=== PATIENT | female | born 1940 | race Hispanic/Latino ===

== ENCOUNTER 2023-03-19 03:53 | Inpatient (IN) | payer OTHER ==
--- OUTSIDE RECORDS SUMMARY | 2023-03-19 03:56 | XMS REPORT | Continuity of Care Document ---
:1940 Author Organization [facility] t Address [address] [facility] [address] [place] [address] Care Team Providers Name Role Phone Paco Villalpando Attending Clinician Unavailable [email or web address] Attending Clinician Unavailable Gilda Hathaway Attending Clinician Unavailable [email or web address] Admitting Clinician Unavailable Michelle Munguia APN Admitting Clinician Unavailable Payers Payer Name Policy Type Policy Number Effective Date Expiration Date S ource Problems Condition Condition Condition Status Onset Resolution Last Treating Co mments Source Name Details Category Date Date Treatment Clinician Date [id number] Primary Problem Comm on osteoarthr Spirit [facility] of [facility] left wrist [facility] [id number] Primary Problem Comm on osteoarthr [facility]is of [facility] right [facility] [id number] Urinary Problem Commo n incontinen Spirit ce, - [facility] unspecifie [facility] Constipati Constipati Problem C ommon on on Spirit - [facility] [id number] S/P Problem Common partial Spirit hysterecto - [facility] my [facility] [id number] Primary Problem Common insomnia [facility] [id number] Status Problem Common post colon Spirit resection - [facility] [id number] Acquired Problem Comm on hypothyroi [facility] dism [facility] [id number] Osteoporos Problem Com mon is, [facility] d pathologic al fracture presence [id number] Vitamin D Problem Comm on deficiency [facility] [id number] Glaucoma, Problem Comm on unspecifie [facility] [id number] SAILAJA Problem Common (generaliz Spirit ed anxiety - [facility] disorder) [facility] [id number] History of Problem Co mmon colon Spirit cancer - [facility] Routine Routine Problem Common eye exam eye exam [facility] [id number] Mixed Problem Common hyperlipid [facility] emia [facility] [id number] Essential Problem Comm on (primary) Spirit hypertensi - [facility] on [facility] Allergies, Adverse Reactions, Alerts Allergy Allergy Status Severity Reaction(s) Onset Inactive Treating Comm ents Source Name Type Date Date Clinician ciproflo DA Active U [facility] xacin 5-10 [facility] DA Active U [facility] 5-10 [facility] ciproflo DA Active U [facility] xacin 5-10 [facility] 00:[facility] ciproflo DA Active [facility] SWE[facility], 5-10 [facility] HCl ANXIETY 00:00: [facility] codeine DA Active U [facility] HEADACHE 5-10 [facility]al 00:[facility] ciproflo DA Active [facility] SWEATS, 5-10 [facility] ANXIETY 00:[facility] codeine codeine Active Unknown Common [facility] Social History Social Habit Start Date Stop Date Quantity Comments Source History of Tobacco Use Co mmon [facility] Sex Assigned At Com mon [facility] Smoking Status Start Date Stop Date Source Former Smoker 2022-12-24 00:00:00 2022-12-24 00:00:00 Common S pirit - [facility] Medications Ordered Filled Start Stop Current Ordering Indication Dosage Frequency Signature Comments Components Source Medication Medication Date Date Medication? Clinician (SIG) Name Name Benzonatate Benzonatate 2022-0 No 1{capsu TID Benzonatat 100 MG 100 MG 3-24 le} e 100 MG 00:00: 00 Benzonatate Benzonatate 3-0 No 1{capsu TID Benzonatat 100 MG 100 MG 3-24 le} e 100 MG 00:00: 00 Benzonatate Benzonatate 3-0 No 1{capsu TID Benzonatat 100 MG 100 MG 3-24 le} e 100 MG 00:00: 00 Benzonatate Benzonatate 3-0 No 1{capsu TID Benzonatat 100 MG 100 MG 3-24 le} e 100 MG 00:00: 00 Benzonatate Benzonatate 3-0 No 1{capsu TID Benzonatat 100 MG 100 MG 3-24 le} e 100 MG 00:00: 00 Ibandronate Ibandronate 2021-0 3- No Ibandronat Sodium 150 Sodium 150 01-23 e Sodium MG MG 00:00: 00:00 150 MG 00 :00 Azelastine Azelastine 2021-0 No 2{spray QD Azelastine HCl 0.15 % HCl 0.15 % 5-09 s_in_ea HCl 0.15 % 00:00: ch_nost 00 ril} Azelastine Azelastine 2-0 No 2{spray QD Azelastine HCl 0.15 % HCl 0.15 % 5-09 s_in_ea HCl 0.15 % 00:00: ch_nost 00 ril} Azelastine Azelastine 2-0 No 2{spray QD Azelastine HCl 0.15 % HCl 0.15 % 5-09 s_in_ea HCl 0.15 % 00:00: ch_nost 00 ril} Azelastine Azelastine 2-0 No 2{spray QD Azelastine HCl 0.15 % HCl 0.15 % 5-09 s_in_ea HCl 0.15 % 00:00: ch_nost 00 ril} Doxylamine Doxylamine No 1{table QD Doxylamine Succinate Succinate t_at_be Succinate (Sleep) 25 (Sleep) 25 dtime_a (Sleep) 25 MG MG s_neede MG d} busPIRone busPIRone No 1{table BID busPIRone HCl 10 MG HCl 10 MG t} HCl 10 MG Losartan Losartan No 1{table QD Losartan Potassium Potassium t} Potassium 50 MG 50 MG 50 MG Euthyrox 25 Euthyrox 25 No QD Euthyrox MCG MCG 25 MCG Timolol Timolol No 1{drop_ QD Timolol Maleate 0.5 Maleate 0.5 into_af Maleate % % fected_ 0.5 % eye} Brimonidine Brimonidine No 1{drop_ TID Brimonidin Tartrate Tartrate into_af e Tartrate 0.2 % 0.2 % fected_ 0.2 % eye} Doxylamine Doxylamine No 1{table QD Doxylamine Succinate Succinate t_at_be Succinate (Sleep) 25 (Sleep) 25 dtime_a (Sleep) 25 MG MG s_neede MG d} Metoprolol Metoprolol No 1{table QD Metoprolol Succinate Succinate t} Succinate ER 50 MG ER 50 MG ER 50 MG busPIRone busPIRone No 1{table BID busPIRone HCl 10 MG HCl 10 MG t} HCl 10 MG Losartan Losartan No 1{table QD Losartan Potassium Potassium t} Potassium 50 MG 50 MG 50 MG Euthyrox 25 Euthyrox 25 No QD Euthyrox MCG MCG 25 MCG Timolol Timolol No 1{drop_ QD Timolol Maleate 0.5 Maleate 0.5 into_af Maleate % % fected_ 0.5 % eye} Brimonidine Brimonidine No 1{drop_ TID Brimonidin Tartrate Tartrate into_af e Tartrate 0.2 % 0.2 % fected_ 0.2 % eye} Doxylamine Doxylamine No 1{table QD Doxylamine Succinate Succinate t_at_be Succinate (Sleep) 25 (Sleep) 25 dtime_a (Sleep) 25 MG MG s_neede MG d} Metoprolol Metoprolol No 1{table QD Metoprolol Succinate Succinate t} Succinate ER 50 MG ER 50 MG ER 50 MG busPIRone busPIRone No 1{table BID busPIRone HCl 10 MG HCl 10 MG t} HCl 10 MG Losartan Losartan No 1{table QD Losartan Potassium Potassium t} Potassium 50 MG 50 MG 50 MG Euthyrox 25 Euthyrox 25 No QD Euthyrox MCG MCG 25 MCG Timolol Timolol No 1{drop_ QD Timolol Maleate 0.5 Maleate 0.5 into_af Maleate % % fected_ 0.5 % eye} Brimonidine Brimonidine No 1{drop_ TID Brimonidin Tartrate Tartrate into_af e Tartrate 0.2 % 0.2 % fected_ 0.2 % eye} Doxylamine Doxylamine No 1{table QD Doxylamine Succinate Succinate t_at_be Succinate (Sleep) 25 (Sleep) 25 dtime_a (Sleep) 25 MG MG s_neede MG d} Metoprolol Metoprolol No 1{table QD Metoprolol Succinate Succinate t} Succinate ER 50 MG ER 50 MG ER 50 MG busPIRone busPIRone No 1{table BID busPIRone HCl 10 MG HCl 10 MG t} HCl 10 MG Losartan Losartan No 1{table QD Losartan Potassium Potassium t} Potassium 50 MG 50 MG 50 MG Euthyrox 25 Euthyrox 25 No QD Euthyrox MCG MCG 25 MCG Timolol Timolol No 1{drop_ QD Timolol Maleate 0.5 Maleate 0.5 into_af Maleate % % fected_ 0.5 % eye} Brimonidine Brimonidine No 1{drop_ TID Brimonidin Tartrate Tartrate into_af e Tartrate 0.2 % 0.2 % fected_ 0.2 % eye} Doxylamine Doxylamine No 1{table QD Doxylamine Succinate Succinate t_at_be Succinate (Sleep) 25 (Sleep) 25 dtime_a (Sleep) 25 MG MG s_neede MG d} Metoprolol Metoprolol No 1{table QD Metoprolol Succinate Succinate t} Succinate ER 50 MG ER 50 MG ER 50 MG L-Lysine L-Lysine No L-Lysine Euthyrox 50 Euthyrox 50 No QD Euthyrox MCG MCG 50 MCG Doxylamine Doxylamine No 1{table QD Doxylamine Succinate Succinate t_at_be Succinate (Sleep) 25 (Sleep) 25 dtime_a (Sleep) 25 MG MG s_neede MG d} Vitamin B12 Vitamin B12 No Vitamin B12 Metoprolol Metoprolol No Metoprolol Succinate Succinate Succinate ER 50 MG ER 50 MG ER 50 MG Losartan Losartan No Losartan Potassium Potassium Potassium 50 MG 50 MG 50 MG Brimonidine Brimonidine No 1{drop_ TID Brimonidin Tartrate Tartrate into_af e Tartrate 0.2 % 0.2 % fected_ 0.2 % eye} Losartan Losartan No 1{table QD Losartan Potassium Potassium t} Potassium 50 MG 50 MG 50 MG Timolol Timolol No 1{drop_ QD Timolol Maleate 0.5 Maleate 0.5 into_af Maleate % % fected_ 0.5 % eye} Metoprolol Metoprolol No 1{table QD Metoprolol Succinate Succinate t} Succinate ER 50 MG ER 50 MG ER 50 MG busPIRone busPIRone No 1{table BID busPIRone HCl 10 MG HCl 10 MG t} HCl 10 MG Levothyroxi Levothyroxi No Levothyrox ne Sodium ne Sodium ine Sodium 25 MCG 25 MCG 25 MCG Metoprolol Metoprolol No Metoprolol Succinate Succinate Succinate ER 50 MG ER 50 MG ER 50 MG Brimonidine Brimonidine No 1{drop_ TID Brimonidin Tartrate Tartrate into_af e Tartrate 0.2 % 0.2 % fected_ 0.2 % eye} Timolol Timolol No 1{drop_ QD Timolol Maleate 0.5 Maleate 0.5 into_af Maleate % % fected_ 0.5 % eye} busPIRone busPIRone No busPIRone HCl 10 MG HCl 10 MG HCl 10 MG Losartan Losartan No 1{table QD Losartan Potassium Potassium t} Potassium 50 MG 50 MG 50 MG Euthyrox 50 Euthyrox 50 No QD Euthyrox MCG MCG 50 MCG L-Lysine L-Lysine No L-Lysine Doxylamine Doxylamine No 1{table QD Doxylamine Succinate Succinate t_at_be Succinate (Sleep) 25 (Sleep) 25 dtime_a (Sleep) 25 MG MG s_neede MG d} Losartan Losartan No Losartan Potassium Potassium Potassium 50 MG 50 MG 50 MG Levothyroxi Levothyroxi No Levothyrox ne Sodium ne Sodium ine Sodium 25 MCG 25 MCG 25 MCG Vitamin B12 Vitamin B12 No Vitamin B12 Timolol Timolol No 1{drop_ QD Timolol Maleate 0.5 Maleate 0.5 into_af Maleate % % fected_ 0.5 % eye} Brimonidine Brimonidine No 1{drop_ TID Brimonidin Tartrate Tartrate into_af e Tartrate 0.2 % 0.2 % fected_ 0.2 % eye} Vitamin B12 Vitamin B12 No Vitamin B12 methylPREDN methylPREDN No methylPRED ISolone 4 ISolone 4 NISolone 4 MG MG MG Doxylamine Doxylamine No 1{table QD Doxylamine Succinate Succinate t_at_be Succinate (Sleep) 25 (Sleep) 25 dtime_a (Sleep) 25 MG MG s_neede MG d} Metoprolol Metoprolol No Metoprolol Succinate Succinate Succinate ER 50 MG ER 50 MG ER 50 MG Losartan Losartan No 1{table QD Losartan Potassium Potassium t} Potassium 50 MG 50 MG 50 MG Losartan Losartan No Losartan Potassium Potassium Potassium 50 MG 50 MG 50 MG Euthyrox 50 Euthyrox 50 No QD Euthyrox MCG MCG 50 MCG busPIRone busPIRone No busPIRone HCl 10 MG HCl 10 MG HCl 10 MG Levothyroxi Levothyroxi No Levothyrox ne Sodium ne Sodium ine Sodium 25 MCG 25 MCG 25 MCG L-Lysine L-Lysine No L-Lysine L-Lysine L-Lysine No L-Lysine Euthyrox 50 Euthyrox 50 No QD Euthyrox MCG MCG 50 MCG methylPREDN methylPREDN No methylPRED ISolone 4 ISolone 4 NISolone 4 MG MG MG Metoprolol Metoprolol No Metoprolol Succinate Succinate Succinate ER 50 MG ER 50 MG ER 50 MG busPIRone busPIRone No busPIRone HCl 10 MG HCl 10 MG HCl 10 MG Brimonidine Brimonidine No 1{drop_ TID Brimonidin Tartrate Tartrate into_af e Tartrate 0.2 % 0.2 % fected_ 0.2 % eye} Losartan Losartan No 1{table QD Losartan Potassium Potassium t} Potassium 50 MG 50 MG 50 MG Doxylamine Doxylamine No 1{table QD Doxylamine Succinate Succinate t_at_be Succinate (Sleep) 25 (Sleep) 25 dtime_a (Sleep) 25 MG MG s_neede MG d} Levothyroxi Levothyroxi No Levothyrox ne Sodium ne Sodium ine Sodium 25 MCG 25 MCG 25 MCG Vitamin B12 Vitamin B12 No Vitamin B12 Losartan Losartan No Losartan Potassium Potassium Potassium 50 MG 50 MG 50 MG Timolol Timolol No 1{drop_ QD Timolol Maleate 0.5 Maleate 0.5 into_af Maleate % % fected_ 0.5 % eye} Brimonidine Brimonidine No 1{drop_ TID Brimonidin Tartrate Tartrate into_af e Tartrate 0.2 % 0.2 % fected_ 0.2 % eye} Azelastine Azelastine No 2{spray QD Azelastine HCl 0.15 % HCl 0.15 % s_in_ea HCl 0.15 % ch_nost ril} Losartan Losartan No 1{table QD Losartan Potassium Potassium t} Potassium 50 MG 50 MG 50 MG methylPREDN methylPREDN No methylPRED ISolone 4 ISolone 4 NISolone 4 MG MG MG Metoprolol Metoprolol No 1{table QD Metoprolol Succinate Succinate t} Succinate ER 50 MG ER 50 MG ER 50 MG Levothyroxi Levothyroxi No Levothyrox ne Sodium ne Sodium ine Sodium 25 MCG 25 MCG 25 MCG Vitamin B12 Vitamin B12 No Vitamin B12 L-Lysine L-Lysine No L-Lysine Vitamin C Vitamin C No Vitamin C Timolol Timolol No 1{drop_ QD Timolol Maleate 0.5 Maleate 0.5 into_af Maleate % % fected_ 0.5 % eye} Losartan Losartan No Losartan Potassium Potassium Potassium 50 MG 50 MG 50 MG Euthyrox 50 Euthyrox 50 No QD Euthyrox MCG MCG 50 MCG busPIRone busPIRone No busPIRone HCl 10 MG HCl 10 MG HCl 10 MG busPIRone busPIRone No 1{table BID busPIRone HCl 10 MG HCl 10 MG t} HCl 10 MG Multivitami Multivitami No Multivitam n n in Metoprolol Metoprolol No Metoprolol Succinate Succinate Succinate ER 50 MG ER 50 MG ER 50 MG Doxylamine Doxylamine No 1{table QD Doxylamine Succinate Succinate t_at_be Succinate (Sleep) 25 (Sleep) 25 dtime_a (Sleep) 25 MG MG s_neede MG d} Losartan Losartan No 1{table QD Losartan Potassium Potassium t} Potassium 50 MG 50 MG 50 MG Euthyrox 25 Euthyrox 25 No QD Euthyrox MCG MCG 25 MCG Brimonidine Brimonidine No 1{drop_ TID Brimonidin Tartrate Tartrate into_af e Tartrate 0.2 % 0.2 % fected_ 0.2 % eye} Biotin Biotin No Biotin Azelastine Azelastine No 2{spray QD Azelastine HCl 0.15 % HCl 0.15 % s_in_ea HCl 0.15 % ch_nost ril} L-Lysine L-Lysine No L-Lysine Levothyroxi Levothyroxi No Levothyrox ne Sodium ne Sodium ine Sodium 25 MCG 25 MCG 25 MCG Vitamin C Vitamin C No Vitamin C busPIRone busPIRone No busPIRone HCl 10 MG HCl 10 MG HCl 10 MG Vitamin B12 Vitamin B12 No Vitamin B12 Melatonin Melatonin No Melatonin methylPREDN methylPREDN No methylPRED ISolone 4 ISolone 4 NISolone 4 MG MG MG Doxylamine Doxylamine No 1{table QD Doxylamine Succinate Succinate t_at_be Succinate (Sleep) 25 (Sleep) 25 dtime_a (Sleep) 25 MG MG s_neede MG d} Timolol Timolol No 1{drop_ QD Timolol Maleate 0.5 Maleate 0.5 into_af Maleate % % fected_ 0.5 % eye} Multivitami Multivitami No Multivitam n n in Metoprolol Metoprolol No Metoprolol Succinate Succinate Succinate ER 50 MG ER 50 MG ER 50 MG Losartan Losartan No Losartan Potassium Potassium Potassium 50 MG 50 MG 50 MG Metoprolol Metoprolol No 1{table QD Metoprolol Succinate Succinate t} Succinate ER 50 MG ER 50 MG ER 50 MG Doxylamine Doxylamine No 1{table QD Doxylamine Succinate Succinate t_at_be Succinate (Sleep) 25 (Sleep) 25 dtime_a (Sleep) 25 MG MG s_neede MG d} Euthyrox 25 Euthyrox 25 No QD Euthyrox MCG MCG 25 MCG Metoprolol Metoprolol No Metoprolol Succinate Succinate Succinate ER 50 MG ER 50 MG ER 50 MG Vitamin B12 Vitamin B12 No Vitamin B12 Losartan Losartan No Losartan Potassium Potassium Potassium 50 MG 50 MG 50 MG L-Lysine L-Lysine No L-Lysine Biotin Biotin No Biotin Melatonin Melatonin No Melatonin Vitamin C Vitamin C No Vitamin C Multivitami Multivitami No Multivitam n n in Azelastine Azelastine No 2{spray QD Azelastine HCl 0.15 % HCl 0.15 % s_in_ea HCl 0.15 % ch_nost ril} Timolol Timolol No 1{drop_ QD Timolol Maleate 0.5 Maleate 0.5 into_af Maleate % % fected_ 0.5 % eye} Losartan Losartan No Losartan Potassium Potassium Potassium 50 MG 50 MG 50 MG Brimonidine Brimonidine No 1{drop_ TID Brimonidin Tartrate Tartrate into_af e Tartrate 0.2 % 0.2 % fected_ 0.2 % eye} Levothyroxi Levothyroxi No Levothyrox ne Sodium ne Sodium ine Sodium 25 MCG 25 MCG 25 MCG methylPREDN methylPREDN No methylPRED ISolone 4 ISolone 4 NISolone 4 MG MG MG busPIRone busPIRone No busPIRone HCl 10 MG HCl 10 MG HCl 10 MG Metoprolol Metoprolol No 1{table QD Metoprolol Succinate Succinate t} Succinate ER 50 MG ER 50 MG ER 50 MG methylPREDN methylPREDN No methylPRED ISolone 4 ISolone 4 NISolone 4 MG MG MG Myrbetriq Myrbetriq No 1{table QD Myrbetriq 50 MG 50 MG t} 50 MG busPIRone busPIRone No busPIRone HCl 10 MG HCl 10 MG HCl 10 MG Doxylamine Doxylamine No 1{table QD Doxylamine Succinate Succinate t_at_be Succinate (Sleep) 25 (Sleep) 25 dtime_a (Sleep) 25 MG MG s_neede MG d} Colace Colace No Colace Losartan Losartan No Losartan Potassium Potassium Potassium 50 MG 50 MG 50 MG L-Lysine L-Lysine No L-Lysine Vitamin B12 Vitamin B12 No Vitamin B12 Biotin Biotin No Biotin Melatonin Melatonin No Melatonin Combigan Combigan No 1{drop_ BID Combigan 0.2-0.5 % 0.2-0.5 % into_af 0.2-0.5 % fected_ eye} Losartan Losartan No 1{table QD Losartan Potassium Potassium t} Potassium 50 MG 50 MG 50 MG Multivitami Multivitami No Multivitam n n in Euthyrox 25 Euthyrox 25 No QD Euthyrox MCG MCG 25 MCG Metamucil Metamucil No Metamucil Metoprolol Metoprolol No 1{table QD Metoprolol Succinate Succinate t} Succinate ER 50 MG ER 50 MG ER 50 MG Losartan Losartan No 1{table QD Losartan Potassium Potassium t} Potassium 50 MG 50 MG 50 MG Vitamin C Vitamin C No Vitamin C Levothyroxi Levothyroxi No Levothyrox ne Sodium ne Sodium ine Sodium 25 MCG 25 MCG 25 MCG Azelastine Azelastine No 2{spray QD Azelastine HCl 0.15 % HCl 0.15 % s_in_ea HCl 0.15 % ch_nost ril} Myrbetriq Myrbetriq No 1{table QD Myrbetriq 50 MG 50 MG t} 50 MG Brimonidine Brimonidine No 1{drop_ TID Brimonidin Tartrate Tartrate into_af e Tartrate 0.2 % 0.2 % fected_ 0.2 % eye} Timolol Timolol No 1{drop_ QD Timolol Maleate 0.5 Maleate 0.5 into_af Maleate % % fected_ 0.5 % eye} Multivitami Multivitami No Multivitam n n in Metamucil Metamucil No Metamucil Melatonin Melatonin No Melatonin Myrbetriq Myrbetriq No Myrbetriq 50 MG 50 MG 50 MG busPIRone busPIRone No busPIRone HCl 10 MG HCl 10 MG HCl 10 MG methylPREDN methylPREDN No methylPRED ISolone 4 ISolone 4 NISolone 4 MG MG MG Azelastine Azelastine No 2{spray QD Azelastine HCl 0.15 % HCl 0.15 % s_in_ea HCl 0.15 % ch_nost ril} Levothyroxi Levothyroxi No Levothyrox ne Sodium ne Sodium ine Sodium 25 MCG 25 MCG 25 MCG Brimonidine Brimonidine No 1{drop_ TID Brimonidin Tartrate Tartrate into_af e Tartrate 0.2 % 0.2 % fected_ 0.2 % eye} L-Lysine L-Lysine No L-Lysine Biotin Biotin No Biotin Colace Colace No Colace Combigan Combigan No 1{drop_ BID Combigan 0.2-0.5 % 0.2-0.5 % into_af 0.2-0.5 % fected_ eye} Losartan Losartan No Losartan Potassium Potassium Potassium 50 MG 50 MG 50 MG Doxylamine Doxylamine No 1{table QD Doxylamine Succinate Succinate t_at_be Succinate (Sleep) 25 (Sleep) 25 dtime_a (Sleep) 25 MG MG s_neede MG d} Euthyrox 25 Euthyrox 25 No QD Euthyrox MCG MCG 25 MCG Metoprolol Metoprolol No Metoprolol Succinate Succinate Succinate ER 50 MG ER 50 MG ER 50 MG Losartan Losartan No Losartan Potassium Potassium Potassium 50 MG 50 MG 50 MG Timolol Timolol No 1{drop_ QD Timolol Maleate 0.5 Maleate 0.5 into_af Maleate % % fected_ 0.5 % eye} Vitamin C Vitamin C No Vitamin C Vitamin B12 Vitamin B12 No Vitamin B12 Multivitami Multivitami No Multivitam n n in Metamucil Metamucil No Metamucil Melatonin Melatonin No Melatonin Myrbetriq Myrbetriq No Myrbetriq 50 MG 50 MG 50 MG busPIRone busPIRone No busPIRone HCl 10 MG HCl 10 MG HCl 10 MG methylPREDN methylPREDN No methylPRED ISolone 4 ISolone 4 NISolone 4 MG MG MG Azelastine Azelastine No 2{spray QD Azelastine HCl 0.15 % HCl 0.15 % s_in_ea HCl 0.15 % ch_nost ril} Levothyroxi Levothyroxi No Levothyrox ne Sodium ne Sodium ine Sodium 25 MCG 25 MCG 25 MCG Brimonidine Brimonidine No 1{drop_ TID Brimonidin Tartrate Tartrate into_af e Tartrate 0.2 % 0.2 % fected_ 0.2 % eye} L-Lysine L-Lysine No L-Lysine Biotin Biotin No Biotin Colace Colace No Colace Combigan Combigan No 1{drop_ BID Combigan 0.2-0.5 % 0.2-0.5 % into_af 0.2-0.5 % fected_ eye} Losartan Losartan No Losartan Potassium Potassium Potassium 50 MG 50 MG 50 MG Doxylamine Doxylamine No 1{table QD Doxylamine Succinate Succinate t_at_be Succinate (Sleep) 25 (Sleep) 25 dtime_a (Sleep) 25 MG MG s_neede MG d} Euthyrox 25 Euthyrox 25 No QD Euthyrox MCG MCG 25 MCG Metoprolol Metoprolol No Metoprolol Succinate Succinate Succinate ER 50 MG ER 50 MG ER 50 MG Losartan Losartan No Losartan Potassium Potassium Potassium 50 MG 50 MG 50 MG Timolol Timolol No 1{drop_ QD Timolol Maleate 0.5 Maleate 0.5 into_af Maleate % % fected_ 0.5 % eye} Vitamin C Vitamin C No Vitamin C Vitamin B12 Vitamin B12 No Vitamin B12 Multivitami Multivitami No Multivitam n n in Metamucil Metamucil No Metamucil Melatonin Melatonin No Melatonin Myrbetriq Myrbetriq No Myrbetriq 50 MG 50 MG 50 MG busPIRone busPIRone No busPIRone HCl 10 MG HCl 10 MG HCl 10 MG methylPREDN methylPREDN No methylPRED ISolone 4 ISolone 4 NISolone 4 MG MG MG Azelastine Azelastine No 2{spray QD Azelastine HCl 0.15 % HCl 0.15 % s_in_ea HCl 0.15 % ch_nost ril} Levothyroxi Levothyroxi No Levothyrox ne Sodium ne Sodium ine Sodium 25 MCG 25 MCG 25 MCG Brimonidine Brimonidine No 1{drop_ TID Brimonidin Tartrate Tartrate into_af e Tartrate 0.2 % 0.2 % fected_ 0.2 % eye} L-Lysine L-Lysine No L-Lysine Biotin Biotin No Biotin Colace Colace No Colace Combigan Combigan No 1{drop_ BID Combigan 0.2-0.5 % 0.2-0.5 % into_af 0.2-0.5 % fected_ eye} Losartan Losartan No Losartan Potassium Potassium Potassium 50 MG 50 MG 50 MG Doxylamine Doxylamine No 1{table QD Doxylamine Succinate Succinate t_at_be Succinate (Sleep) 25 (Sleep) 25 dtime_a (Sleep) 25 MG MG s_neede MG d} Euthyrox 25 Euthyrox 25 No QD Euthyrox MCG MCG 25 MCG Metoprolol Metoprolol No Metoprolol Succinate Succinate Succinate ER 50 MG ER 50 MG ER 50 MG Losartan Losartan No Losartan Potassium Potassium Potassium 50 MG 50 MG 50 MG Timolol Timolol No 1{drop_ QD Timolol Maleate 0.5 Maleate 0.5 into_af Maleate % % fected_ 0.5 % eye} Vitamin C Vitamin C No Vitamin C Vitamin B12 Vitamin B12 No Vitamin B12 Ipratropium Ipratropium No 2{spray TID Ipratropiu [place] s_in_ea m [place] 0.06 % 0.06 % ch_nost 0.06 % ril} Procto-Med Procto-Med No 1{appli BID Procto-Med HC 2.5 % HC 2.5 % cation} HC 2.5 % Tylenol Tylenol No Tylenol Arthritis Arthritis Arthritis Pain Pain Pain Multivitami Multivitami No Multivitam n n in Losartan Losartan No 1{table QD Losartan Potassium Potassium t} Potassium 50 MG 50 MG 50 MG Colace Colace No Colace Miralax Miralax No Miralax Refresh Refresh No Refresh Tears Tears Tears Timolol Timolol No 1{drop_ QD Timolol Maleate 0.5 Maleate 0.5 into_af Maleate % % fected_ 0.5 % eye} Calcium Calcium No Calcium Euthyrox 25 Euthyrox 25 No QD Euthyrox MCG MCG 25 MCG Brimonidine Brimonidine No 1{drop_ TID Brimonidin Tartrate Tartrate into_af e Tartrate 0.2 % 0.2 % fected_ 0.2 % eye} busPIRone busPIRone No 1{table BID busPIRone HCl 10 MG HCl 10 MG t} HCl 10 MG Metoprolol Metoprolol No 1{table QD Metoprolol Succinate Succinate t} Succinate ER 50 MG ER 50 MG ER 50 MG Sleep Aid Sleep Aid No Sleep Aid Doxylamine Doxylamine No 1{table QD Doxylamine Succinate Succinate t_at_be Succinate (Sleep) 25 (Sleep) 25 dtime_a (Sleep) 25 MG MG s_neede MG d} Ipratropium Ipratropium No 2{spray TID Ipratropiu [place] s_in_ea m [place] 0.06 % 0.06 % ch_nost 0.06 % ril} Procto-Med Procto-Med No 1{appli BID Procto-Med HC 2.5 % HC 2.5 % cation} HC 2.5 % Tylenol Tylenol No Tylenol Arthritis Arthritis Arthritis Pain Pain Pain Multivitami Multivitami No Multivitam n n in Losartan Losartan No 1{table QD Losartan Potassium Potassium t} Potassium 50 MG 50 MG 50 MG Colace Colace No Colace Miralax Miralax No Miralax Refresh Refresh No Refresh Tears Tears Tears Timolol Timolol No 1{drop_ QD Timolol Maleate 0.5 Maleate 0.5 into_af Maleate % % fected_ 0.5 % eye} Calcium Calcium No Calcium Euthyrox 25 Euthyrox 25 No QD Euthyrox MCG MCG 25 MCG Brimonidine Brimonidine No 1{drop_ TID Brimonidin Tartrate Tartrate into_af e Tartrate 0.2 % 0.2 % fected_ 0.2 % eye} busPIRone busPIRone No 1{table BID busPIRone HCl 10 MG HCl 10 MG t} HCl 10 MG Metoprolol Metoprolol No 1{table QD Metoprolol Succinate Succinate t} Succinate ER 50 MG ER 50 MG ER 50 MG Sleep Aid Sleep Aid No Sleep Aid Immunizations Ordered Filled Immunization Date Status Comments Sourc e Immunization Name Name FluAD FluAD 2019-03-23 Completed [facility] 15:05:00 - [facility] FluAD FluAD 2019-03-23 Completed [facility] 15:05:00 - [facility] FluAD FluAD 2019-03-23 Completed [facility] 15[facility]05:00 - [facility] FluAD FluAD 2019-03-23 [facility] 15:05:00 - [facility] FluAD FluAD 2019-03-23 Completed [facility]:05:00 - [facility] FluAD FluAD 2019-03-23 [facility]pleted [facility] 15:05:00 - [facility] FluAD FluAD 2019-03-23 [facility]pleted [facility] 15:05:00 - [facility] FluAD FluAD 2019-03-23 Completed [facility] 15:05:00 - [facility] FluAD FluAD 2019-03-23 Completed [facility] 15:05:00 - [facility] FluAD FluAD 2019-03-23 Completed [facility] 15:05:00 - [facility] FluAD FluAD 2019-03-23 Completed [facility] 15:05:00 - [facility] FluAD FluAD 2019-03-23 Completed [facility] 15:05:00 - [facility] FluAD FluAD 2019-03-23 Completed [facility] 15:05:00 - [facility] FluAD FluAD 2019-03-23 Completed [facility] 15:05:00 - [facility] Pneumovax (PPSV23) Pneumovax (PPSV23) 2010-09-30 Completed [facility] 15:07:00 - [facility] Pneumovax (PPSV23) Pneumovax (PPSV23) 2010-09-30 Completed [facility] 15:07:00 - [facility] Pneumovax (PPSV23) Pneumovax (PPSV23) 2010-09-30 Completed [facility] 15:07:00 - [facility] Pneumovax (PPSV23) Pneumovax (PPSV23) 2010-09-30 Completed [facility] 15:07:00 - [facility] Pneumovax (PPSV23) Pneumovax (PPSV23) 2010-09-30 Completed [facility] 15:07:00 - [facility] Pneumovax (PPSV23) Pneumovax (PPSV23) 2010-09-30 Completed [facility] 15:07:00 - [facility] Pneumovax (PPSV23) Pneumovax (PPSV23) 2010-09-30 Completed [facility] 15:07:00 - [facility] Pneumovax (PPSV23) Pneumovax (PPSV23) 2010-09-30 Completed [facility] 15:07:00 - [facility] Pneumovax (PPSV23) Pneumovax (PPSV23) 2010-09-30 Completed [facility] 15:07:00 - [facility] Pneumovax (PPSV23) Pneumovax (PPSV23) 2010-09-30 Completed [facility] 15:07:00 - [facility] Pneumovax (PPSV23) Pneumovax (PPSV23) 2010-09-30 Completed [facility] 15:07:00 - [facility] Pneumovax (PPSV23) Pneumovax (PPSV23) 2010-09-30 Completed [facility] 15:07:00 - [facility] Pneumovax (PPSV23) Pneumovax (PPSV23) 2010-09-30 Completed [facility] 15:07:00 [facility] Pneumovax (PPSV23) Pneumovax (PPSV23) 2010-09-30 Completed [facility] 15:07:00 [facility] FluAD FluAD Unknown Completed [facility] Pneumovax (PPSV23) Pneumovax (PPSV23) Unknown Completed [facility] FluAD FluAD Unknown Completed [facility] Pneumovax (PPSV23) Pneumovax (PPSV23) Unknown Completed [facility] FluAD FluAD Unknown Completed [facility] Pneumovax (PPSV23) Pneumovax (PPSV23) Unknown Completed [facility] Vital Signs Vital Name Observation Time Observation Value Comments Source height 2022-07-31 15:30:00 64 [in_i] [facility] weight 2022-07-31 15:30:00 128.2 [lb_av] [facility] temperature 2022-07-31 15:30:00 96.6 [degF] [facility] bmi 2022-07-31 15:30:00 22 kg/m2 [facility] oximetry 2022-07-31 15:30:00 99 % [facility] respiratory rate 2022-07-31 15:30:00 18 /min Comm on [facility] blood pressure 2022-07-31 15:30:00 130 mm[Hg] [facility] systolic [facility] blood pressure 2022-07-31 15:30:00 74 mm[Hg] [facility] diastolic [facility] height 2022-07-31 15:30:00 64 [in_i] [facility] weight 2022-07-31 15:30:00 128.2 [lb_av] [facility] temperature 2022-07-31 15:30:00 96.6 [degF] [facility] bmi 2022-07-31 15:30:00 22 kg/m2 [facility] oximetry 2022-07-31 15:30:00 99 % [facility] respiratory rate 2022-07-31 15:30:00 18 /min Comm on [facility] blood pressure 2022-07-31 15:30:00 130 mm[Hg] Common [facility] - systolic [facility] blood pressure 2022-07-31 15:30:00 74 mm[Hg] [facility] - diastolic [facility] height 2022-04-24 13:10:00 64 [in_i] [facility] weight 2022-04-24 13:10:00 126.1 [lb_av] [facility] temperature 2022-04-24 13:10:00 97.0 [degF] [facility] 2022-04-24 13:10:00 21.64 kg/m2 [facility] oximetry 2022-04-24 13:10:00 98 % [facility] respiratory rate 2022-04-24 13:10:00 18 /min Comm on [facility] blood pressure 2022-04-24 13:10:00 123 mm[Hg] Common [facility] - systolic [facility] blood pressure 2022-04-24 13:10:00 67 mm[Hg] Common [facility] - diastolic [facility] height 2022-01-23 13:20:00 64 [in_i] [facility] weight 2022-01-23 13:20:00 125.0 [lb_av] [facility] temperature 2022-01-23 13:20:00 97.2 [degF] [facility] bmi 2022-01-23 13:20:00 21.45 kg/m2 [facility] oximetry 2022-01-23 13:20:00 98 % [facility] respiratory rate 2022-01-23 13:20:00 18 /min [facility] blood pressure 2022-01-23 13:20:00 137 mm[Hg] [facility] - systolic [facility] blood pressure 2022-01-23 13:20:00 63 mm[Hg] [facility] - diastolic [facility] height 2022-01-02 13:15:00 64 [in_i] [facility] weight 2022-01-02 13:15:00 126 [lb_av] [facility] bmi 2022-01-02 13:15:00 21.63 kg/m2 [facility] blood pressure 2022-01-02 13:15:00 119 mm[Hg] [facility] - systolic [facility] blood pressure 2022-01-02 13:15:00 71 mm[Hg] [facility] - diastolic [facility] height 2021-12-19 15:00:00 64 [in_i] [facility] weight 2021-12-19 15:00:00 126 [lb_av] [facility] temperature 2021-12-19 15:00:00 97.5 [degF] [facility] bmi 2021-12-19 15:00:00 21.63 kg/m2 [facility] blood pressure 2021-12-19 15:00:00 120 mm[Hg] [facility] - systolic [facility] blood pressure 2021-12-19 15:00:00 78 mm[Hg] [facility] - diastolic [facility] height 2021-09-25 13:30:00 64 [in_i] [facility] weight 2021-09-25 13:30:00 127.3 [lb_av] [facility] - [facility] temperature 2021-09-25 13:30:00 98.2 [degF] [facility] bmi 2021-09-25 13:30:00 21.85 kg/m2 [facility] oximetry 2021-09-25 13:30:00 97 % [facility] respiratory rate 2021-09-25 13:30:00 18 /min Comm on [facility] blood pressure 2021-09-25 13:30:00 138 mm[Hg] [facility] - systolic [facility] blood pressure 2021-09-25 13:30:00 72 mm[Hg] [facility] - diastolic [facility] height 2021-06-27 15:40:00 64 [in_i] [facility] weight 2021-06-27 15:40:00 128.6 [lb_av] [facility] temperature 2021-06-27 15:40:00 98.0 [degF] [facility] bmi 2021-06-27 15:40:00 22.07 kg/m2 [facility] oximetry 2021-06-27 15:40:00 99 % [facility] respiratory rate 2021-06-27 15:40:00 18 /min Comm on [facility] blood pressure 2021-06-27 15:40:00 133 mm[Hg] [facility] - systolic [facility] blood pressure 2021-06-27 15:40:00 75 mm[Hg] [facility] - diastolic [facility] height 2021-06-27 15:20:00 64 [in_i] [facility] weight 2021-06-27 15:20:00 128.6 [lb_av] [facility] temperature 2021-06-27 15:20:00 98.0 [degF] [facility] 2021-06-27 15:20:00 22.07 kg/m2 [facility] oximetry 2021-06-27 15:20:00 99 % [facility] respiratory rate 2021-06-27 15:20:00 18 /min Comm on [facility] blood pressure 2021-06-27 15:20:00 133 mm[Hg] [facility] - systolic [facility] blood pressure 2021-06-27 15:20:00 75 mm[Hg] [facility] - diastolic [facility] height 2021-05-29 15:30:00 64 [in_i] [facility] weight 2021-05-29 15:30:00 130.1 [lb_av] [facility] temperature 2021-05-29 15:30:00 97.6 [degF] [facility] bmi 2021-05-29 15:30:00 22.33 kg/m2 [facility] oximetry 2021-05-29 15:30:00 99 % [facility] respiratory rate 2021-05-29 15:30:00 18 /min Comm on [facility] blood pressure 2021-05-29 15:30:00 138 mm[Hg] [facility] systolic [facility] blood pressure 2021-05-29 15:30:00 72 mm[Hg] [facility] diastolic [facility] Procedures This patient has no known procedures. Encounters Start End Encounter Admission Attending Care Care Encounter Source Date/Time Date/Time Type Type Clinicians Facility Department ID 2022-12-24 Outpatient Villalpando, [facility] [id number] [facility] 13:27:[id number] [facility] 2022-04-20 [facility] [id number] [facility] 11:15:[address] [facility] 2021-12-20 Out[facility]ando, [facility] [id number] [facility] 11:27:[address] [facility] 2021-12-19 [facility] [id number] 16:[facility]:[address] [facility] 2021-12-18 Outpatient Villalpando, [facility] [id number] [facility] 16:10:[address] [facility] 2021-06-28 Outpatient Villalpando, STLMLC [facility] [id number] Common 08:45:[address] [facility] 2021-06-23 Outpatient Villalpando, STLMLC STL[facility] [id number] Common 11:57:[address] [facility] 2021-06-14 Outpatient Villalpando, STLMLC STL[facility]C [id number] [facility] 14:33:[address] [facility] 2023-03-17 2023-03-17 Outpatient GC_[id number] PRIV PRIV [id number] [facility] 00:00:00 00:00:00 ivanna_S [id number] Medic al 2022-07-31 2022-07-31 OFFICE STLMLC STL[facility]C [id number] [facility] 00:00:00 00:00:00 [facility] ESTAB PT - CHI LEVEL 4 [facility] 2022-07-31 2022-07-31 SUB ANNUAL STLMLC STLMLC [id number] [facility] 00:00:00 00:00:00 [facility]CR [facility] WELLNESS - CHI VISIT [facility] 2022-07-16 2022-07-16 (TEL) STLMLC STLMLC [id number] [facility] 00:00:00 00:00:00 [facility] CHI [facility] 2022-04-24 2022-04-24 OFFICE STLMLC STLMLC [id number] [facility] 00:00:00 00:00:00 [facility] ESTAB PT - CHI LEVEL 4 [facility] 2022-01-23 2022-01-23 OFFICE STLMLC STLMLC [id number] [facility] 00:00:00 00:00:00 [facility] ESTAB PT - CHI LEVEL 4 [facility] 2022-01-02 2022-01-02 OFFICE STLMLC STLMLC [id number] [facility] 00:00:00 00:00:00 [facility] PT - CHI LEVEL 4 [facility] 2021-12-20 2021-12-20 (TEL) STLMLC STLMLC [id number] [facility] 00:00:00 00:00:00 [facility] 2021-12-19 2021-12-19 OFFICE STLMLC STLMLC [id number] Co m[facility] 00:00:00 00:00:00 VISIT NEW [facility] it PT LEVEL 3 - CHI [facility] 2021-12-18 2021-12-18 (TEL) STLMLC STLMLC [id number] [facility] 00:00:00 00:00:00 [facility] CHI [facility] 2021-09-25 2021-09-25 OFFICE STLMLC STLMLC [id number] [facility] 00:00:00 00:00:00 [facility] ESTAB PT - CHI LEVEL 4 [facility] 2021-08-25 2021-08-25 (TEL) STLMLC STLMLC [id number] [facility] 00:00:00 00:00:00 [facility] 2021-06-28 2021-06-28 (TEL) STLMLC STLMLC [id number] [facility] 00:00:00 00:00:00 [facility] 2021-06-28 2021-06-28 (TEL) STLMLC STLMLC [id number] [facility] 00:00:00 00:00:00 [facility] 2021-06-27 2021-06-27 SUB ANNUAL STLMLC STLMLC [id number] [facility] 00:00:00 00:00:00 MCR [facility] WELLNESS - CHI VISIT [facility] 2021-06-27 2021-06-27 OFFICE STLMLC STLMLC [id number] [facility] 00:00:00 00:00:00 [facility] EST[facility] PT - CHI LEVEL 4 [facility] 2021-06-21 2021-06-21 (TEL) STLMLC STLMLC [id number] [facility] 00:00:00 00:00:00 [facility] 2021-05-29 2021-05-29 OFFICE STLMLC STLMLC [id number] [facility] 00:00:00 00:00:00 VISIT NEW [facility] it PT LEVEL 4 - [facility] 2019-07-31 2019-07-31 Outpatient Rivas [facility] MRI [id number] [facility] [place] 13:00:00 13:00:00 , Gilda [id number] [facility] 2019-07-30 2019-07-30 Outpatient [facility] RAD HA5 [id number] [facility] [place] 13:00:00 13:00:00 , Gilda [id number] [facility] Results Test Description Test Time Test Comments Results Result Comments Source CBC W/AUTO DIFF 2022-12-17 00:00:00 Test Item Value Reference Range Interpretation Comme nts NUCLEATED RBCS (test code 0.0 /100 WBC'S See_Comment [Automated message] The = 68988-1) system which ge nerated this result transmit donal reference range: 0.0 /100 WBC'S. The reference range was not used to interpret th is result as normal/abnormal . ABSOLUTE EOSINOPHILS (test 0.14 K/UL See_Comment [Automated message] The code = 43746-0) system which generated this result transmit donal reference range: 0.00-0.5 0 K/UL. The reference range was not used to interpret th is result as normal/abnormal . ABSOLUTE LYMPHOCYTES (test 1.71 K/UL See_Comment [Automated message] The code = 64755-8) system which generated this result transmit donal reference range: 1.00-4.0 0 K/UL. The reference range was not used to interpret th is result as normal/abnormal . ABSOLUTE MONOCYTES (test 0.49 K/UL See_Comment [A utomated message] The code = 07613-8) system which generated this result transmit donal reference range: 0.20-1.0 0 K/UL. The reference range was not used to interpret th is result as normal/abnormal . ABSOLUTE NEUTROPHILS (test 3.11 K/UL See_Comment [Automated message] The code = 19209-1) system which generated this result transmit donal reference range: 1.50-7.5 0 K/UL. The reference range was not used to interpret th is result as normal/abnormal . BASOPHILS (test code = 0.5 % 75322-5) EOSINOPHILS (test code = 2.5 % 09483-0) HEMATOCRIT (test code = 40.0 % See_Comment [Au tomated message] The 78999-5) system which ge nerated this result transmit donal reference range: 34.0-45. 0 %. The reference range was not used to interpret th is result as normal/abnormal . HEMOGLOBIN (test code = 13.6 G/DL See_Comment [Au tomated message] The 718-7) system which ge nerated this result transmit donal reference range: 11.5-15. 5 G/DL. The reference range was not used to interpret th is result as normal/abnormal . LYMPHOCYTES (test code = 31.1 % 81271-6) MCH (test code = 53689-0) 31.3 PG See_Comment [ Automated message] The system which ge nerated this result transmit donal reference range: 25.0-33. 0 PG. The reference range was not used to interpret th is result as normal/abnormal . MCHC (test code = 46918-0) 34.0 G/DL See_Comment [Automated message] The system which ge nerated this result transmit donal reference range: 31.0-36. 0 G/DL. The reference range was not used to interpret th is result as normal/abnormal . MCV (test code = 01060-7) 92.2 fL See_Comment [ Automated message] The system which ge nerated this result transmit donal reference range: 80.0-99. 0 fL. The reference range was not used to interpret th is result as normal/abnormal . MONOCYTES (test code = 8.9 % 93730-8) NEUTROPHILS (test code = 56.6 % 69080-6) PLATELET COUNT (test code 353 K/UL See_Comment [ Automated message] The = 71093-0) system which ge nerated this result transmit donal reference range: 130-400 K/UL. The reference range was not used to interpret th is result as normal/abnormal . RBC (test code = 64559-9) 4.34 M/UL See_Comment [ Automated message] The system which Wyst nerated this result transmit donal reference range: 3.80-5.4 0 M/UL. The reference range was not used to interpret th is result as normal/abnormal . RDW (test code = 14491-1) 13.0 % See_Comment [ Automated message] The system which Wyst nerated this result transmit donal reference range: 11.5-15. 0 %. The reference range was not used to interpret th is result as normal/abnormal . WBC (test code = 48230-0) 5.5 K/UL See_Comment [ Automated message] The system which ge nerated this result transmit donal reference range: 3.5-11.0 K/UL. The reference range was not used to interpret th is result as normal/abnormal . TSH REFLEX TO FREE [id number] 00:00:00 Test Item Value Reference Range Interpretation Comments TSH REFLEX TO FREE 3.110 UIU/ML See_Comment [Automat ed message] T4 (test code = The system [facility] 20232-6) generated this result transmitted ref erence range: 0.400-4. 100 UIU/ML. The ref erence range was not u sed to interpret this result as normal/abnor mal. VITAMIN D, 25 [id number] 00:00:00 Test Item Value Reference Range Interpretation Comments VITAMIN D, 25 OH (test code = 29 NG/ML SEE BELOW NG/ML L 1988-07) LIPID PANEL WITH REFLEX DIRECT [id number] 00:00:00 Test Item Value Reference Range Interpretation Comments CALC LDL CHOL (test 116 MG/DL See_Comment H [Automa donal message] code = 75571-5) The system [facility] generated this result transmit donal reference range : <100 MG/DL. The reference range was not used to interpret this result as normal/abnormal . CHOLESTEROL (test code 224 MG/DL See_Comment H [Aut omated message] = 2092-3) The system [facility] generated this result transmit donal reference range : <200 MG/DL. The reference range was not used to interpret this result as normal/abnormal . HDL CHOLESTEROL (test 90 MG/DL See_Comment [Auto mated message] code = 2085-9) The system [facility] generated this result transmit donal reference range : >39 MG/DL. The refe rence range was not u sed to interpret th is result as normal/abnormal . RISK RATIO LDL/HDL 1.29 RATIO See_Comment [Automat ed message] (test code = 06194-1) The sy stem which generated this result transmit donal reference range : <3.22 RATIO. Th e reference range was not used to interpret this result as normal/abnormal . TRIGLYCERIDES (test 84 MG/DL See_Comment [Automa donal message] code = 2571-8) The system [employer] generated this result transmit donal reference range : <150 MG/DL. The reference range was not used to interpret this result as normal/abnormal . COMPREHENSIVE METABOLIC [id number] 00:00:00 Test Item Value Reference Range Interpretation Comments ALBUMIN (test code = 4.4 G/DL See_Comment [Autom ated message] 6884-7) The system [employer] generated this result transmit donal reference range : 3.5-5.2 G/DL. T he reference range was not used to interpret this result as normal/abnormal . ALKALINE PHOSPHATASE 89 U/L See_Comment [Autom ated message] (test code = 6768-6) The sys tem which generated this result transmit donal reference range : 40-142 U/L. The reference range was not used to interpret this result as normal/abnormal . BILIRUBIN, TOTAL 0.4 MG/DL See_Comment [Automated message] (test code = 1975-2) The sys tem which generated this result transmit donal reference range : <=1.2 MG/DL. Th e reference range was not used to interpret this result as normal/abnormal . BUN (test code = 13 MG/DL See_Comment [Automated message] 3094-0) The system [employer] generated this result transmit donal reference range : 8-23 MG/DL. The reference range was not used to interpret this result as normal/abnormal . CALCIUM (test code = 9.6 MG/DL See_Comment [Autom ated message] 22610-7) The system [employer] generated this result transmit donal reference range : 8.5-10.5 MG/DL. The reference range was not used to interpret this result as normal/abnormal . CALC A/G RATIO (test 1.8 RATIO See_Comment [Autom ated message] code = 1759-0) The system [facility] generated this result transmit donal reference range : 1.0-2.6 RATIO. The reference range was not used to interpret this result as normal/abnormal . CALC BUN/CREAT (test 16 RATIO See_Comment [Autom ated message] code = 3097-3) The system [employer] generated this result transmit donal reference range : 6-28 RATIO. The reference range was not used to interpret this result as normal/abnormal . CALC GLOBULIN (test 2.5 G/DL See_Comment [Automa donal message] code = 25169-5) The system [facility] generated this result transmit donal reference range : 1.9-3.7 G/DL. T he reference range was not used to interpret this result as normal/abnormal . CARBON DIOXIDE (test 28 MEQ/L See_Comment [Autom ated message] code = 1963-8) The system [facility] generated this result transmit donal reference range : 19-31 MEQ/L. Th e reference range was not used to interpret this result as normal/abnormal . CHLORIDE (test code 104 MEQ/L See_Comment [Automa donal message] = 2075-0) The system [facility] generated this result transmit donal reference range : 95-107 MEQ/L. T he reference range was not used to interpret this result as normal/abnormal . CREATININE (test 0.79 MG/DL See_Comment [Automated message] code = 2160-0) The system [facility] generated this result transmit donal reference range : 0.60-1.30 MG/DL . The reference range was not used to interpret this result as normal/abnormal . eGFR (2020 CKD-EPI) 74 ML/MIN/1.73 See_Comment [Auto mated message] (test code = The system [facility] [employer] [address]-8) generated this result transmit donal reference range : >60 ML/MIN/1.73. Th e reference range was not used to interpret this result as normal/abnormal . GLUCOSE (test code = 100 MG/DL See_Comment H [Autom ated message] 1558-6) The system [facility] [employer] generated this result transmit donal reference range : 70-99 MG/DL. Th e reference range was not used to interpret this result as normal/abnormal . POTASSIUM (test code 4.2 MEQ/L See_Comment [Autom ated message] = 2823-3) The system [facility] [employer] generated this result transmit donal reference range : 3.5-5.4 MEQ/L. The reference range was not used to interpret this result as normal/abnormal . PROTEIN, TOTAL (test 6.9 G/DL See_Comment [Autom ated message] code = 2885-2) The system [facility] generated this result transmit donal reference range : 6.1-8.3 G/DL. T he reference range was not used to interpret this result as normal/abnormal . AST (test code = 23 U/L See_Comment [Automated message] 1920-8) The system [employer] generated this result transmit donal reference range : 9-40 U/L. The reference range was not used to interpret this result as normal/abnormal . ALT (test code = 16 U/L See_Comment [Automated message] 1742-6) The system [employer] generated this result transmit donal reference range : 5-40 U/L. The reference range was not used to interpret this result as normal/abnormal . SODIUM (test code = 141 MEQ/L See_Comment [Automa donal message] 1461-2) The system [employer] generated this result transmit donal reference range : 133-146 MEQ/L. The reference range was not used to interpret this result as normal/abnormal . - US HEAD AND [id number] 14:16:00 FAX: Michelle Xie [phone] [place]: [facility] St: REG FAX: Gilda Hathaway [phone] - Name: JAROD WHEELER [facility] : 1940 Age/S: 79/F [address] [facility] [address] Unit #: [id number] Loc: NESTOR [place], [place] [address] Phys: Gilda Hathaway MD Acct: [id number] Dis Date: Status: REG CLI PHONE #: [phone] Exam Date: 07/31/2019 1302 FAX #: [phone] Reason: THYROID NODULE EXAMS: CPT CODE: [id number] US HEAD AND NECK 08714 EXAM: Thyroid ultrasound Dictation location: R16 INDICATION: Thyroid nodule COMPARISON: Thyroid ultrasound on 07/25/2018 DISCUSSION: The right thyroid lobe measures 4 x 0.9 x 0.9 cm and the left thyroid lobe measures 3.1 x 1.2 x 0.9 cm. Theisthmus measures 0.3 cm. Nodules: A 0.4 cm colloid cyst is seen in the isthmus. A 0.3 cm colloid cyst is seen in the superior right thyroid lobe. A 0.2 cm cyst is seen in the inferior left thyroid lobe. A 0.2 cm cyst is seen in the mid right thyroid lobe. IMPRESSION: Small simple cysts and colloid cysts in the thyroid gland as described. These measure 0.4 cm or less. No further follow-up is needed. at 1416 Reported and signed by: LILLY BIRD M.D. CC: Michelle Munguia; Gilda Hathaway Technologist: Lorena Avery RDMS Trnscrd Date/Time/By: 07/31/2019 (1927) : By: [email or web address] Orig Print D/T: S: 07/31/2019 (2006) PAGE 1 Signed Report- HEAD AND [id number] 16:53:00 FAX: Michelle Bailey [phone] [place]: [facility] St: REG FAX: Gilda Hathaway [phone] --- Name: TAY WHEELER [facility] : 1940 Age/S: 78/F [address] [facility]. [address] Unit #: [id number] Loc: [place], [place] [address] Phys: Gilda Hathaway MD Acct: [id number] Dis Date: Status: REG CLI PHONE #: [phone] Exam Date: 07/25/2018 1435 FAX #: [phone] Reason: THYROID NODULE EXAMS: CPT CODE: [id number] US HEAD AND NECK 37162 - US HEAD AND NECK CLINICAL HISTORY: THYROID NODULE COMPARISON: September 08, 2017 TECHNIQUE: Routine thyroid ultrasound was performed. Multiple grayscale Doppler images were obtained. FINDINGS: Right lobe: The right thyroid measures 4.0 x 1.2 x 0.9 cm. The right thyroid gland is homogeneous in echogenicity. There is subcentimeter cysts again noted within the right gland (upper pole 0.3 x 0.1 x 0.3 cm and lower pole 0.4 x 0.2 x 0.3 cm). Left lobe: The left thyroid measures 3.3 x 0.9 x 1.0 cm. The left thyroid gland is homogeneous in echogenicity. Subcentimeter cyst within the left gland are again appreciated with the largest measuring 0.2 x 0.1 x 0.2 cm. Isthmus: The isthmus measures 0.21 cm in thickness. There is a hypoechoic nodule within the left isthmus measuring 0.3 x 0.1 x 0.3 cm. Both lobes demonstrate symmetric color Doppler flow. IMPRESSION: Homogeneous thyroid with multiple bilateral cysts. There is a subcentimeter hypoechoic nodule within the left isthmus. Surveillance imaging is recommended. at 1659 Reported and signed by: Yue Bojorquez MD CC: Michelle Perdomo Technologist: Lorena Avery RDMS Trnscrd Date/Time/By: 07/25/2018 (2316) : By: [email or web address] Orig Print D/T: S: 07/25/2018 (1989) PAGE 1 Signed Report
[2023-03-19] MEDS ORDERED: MORPHINE 2 MG/ML SYR ONE (04:40)
[2023-03-19] MEDS ORDERED: ONDANSETRON 4 MG/2 ML VIAL ONE ×2 (04:41→06:46)
[2023-03-19] MEDS ORDERED: MORPHINE 4 MG/ML SYR ONE ×2 (04:41→06:46)
[2023-03-19 05:04] LABS: Absolute Lymphocytes (CBC) 1.1 K/uL (0.7-4.9); Hematocrit 33.5 % (36.0-45.0); Lymphocytes % 9.1 % (15.3-44.8); MCV 89.2 fL (80-100); MPV 6.4 fL (7.6-11.3); Platelets 341 thou/uL (152-406); Protime INR 1.09; RBC Red Blood Cell Count 3.76 M/uL (3.86-4.86)
[2023-03-19 05:19] LABS: ALT/SGPT 22 U/L (13-56); AST/SGOT 21 U/L (15-37); Albumin 3.1 g/dL (3.4-5.0); Alkaline Phosphatase 96 U/L (45-117); BUN Blood Urea Nitrogen 14 mg/dL (7-18); Bicarbonate 26 mEq/L (21-32); Bilirubin Total 0.4 mg/dL (0.2-1.0); Glomerular Filtration Rate 79 ml/min (=/>90); Glucose Level 142 mg/dL (74-106); Magnesium 2.1 mg/dL (1.6-2.4); NT PRO-BNP 179 pg/mL (<450); Potassium 3.6 mEq/L (3.5-5.1); Protein, Total 7.1 g/dL (6.4-8.2); Sodium Level 136 mEq/L (136-145)
[2023-03-19 05:20] LABS: Bilirubin Direct < 0.1 mg/dL (0-0.2)
[2023-03-19 05:21] LABS: Bilirubin Indirect, Calculated ND mg/dL (0.2-0.8)
--- NOTE | 2023-03-19 06:27 | ER ---
Nurse's Notes [facility] Name: Solange Wheeler Age: 82 yrs Sex: Female : 1940 Arrival Date: 03/19/2023 Time: 03:53 Bed 8 Private MD: Diagnosis: Stress fracture, hip, unspecified;Left intertrochanteric femur fracture, comminuted and displaced Presentation: 03/19 04:03 Chief complaint: Patient states: Had a fall earlier today, stated "I'm having severe jw7 pain to my left hip". Coronavirus screen: At this time, the client does not indicate any symptoms associated with coronavirus-19. Ebola Screen: No symptoms or risks identified at this time. Initial Sepsis Screen: Does the patient meet any 2 criteria? No. Patient's initial sepsis screen is negative. Does the patient have a suspected source of infection? No. Patient's initial sepsis screen is negative. Risk Assessment: Do you want to hurt yourself or someone else? Patient reports no desire to harm self or others. Onset of symptoms was March 19, 2023. Care prior to arrival: Medication(s) given: 30 mg Toradol IM. Mechanism of Injury: Fall from standing position. 04:03 Acuity: BETH 3 jw7 04:03 Method Of Arrival: EMS: [facility] jw7 Triage Assessment: 04:06 General: Appears in no apparent distress. uncomfortable, Behavior is calm, cooperative. jw7 Pain: Complains of pain in Left hip pain Pain radiates to back Pain currently is 10 out of 10 on a pain scale. Quality of pain is described as sharp, shooting, throbbing, Pain began 2 hours ago. Is continuous, Alleviated by medications, rest, Aggravated by increased activity, repositioning, weight bearing, Noted to be grimacing, guarding, moaning, resistant to movement. EENT: No deficits noted. No signs and/or symptoms were reported regarding the EENT system. Neuro: [place]elli Agitation-Sedation Scale (RASS): 0 - Alert and Calm Level of Consciousness is awake, alert, obeys commands, Oriented to person, place, time, situation. Cardiovascular: No deficits noted. Respiratory: No deficits noted. GI: No deficits noted. No signs and/or symptoms were reported involving the gastrointestinal system. : No deficits noted. No signs and/or symptoms were reported regarding the genitourinary system. Derm: No deficits noted. No signs and/or symptoms reported regarding the dermatologic system. Musculoskeletal: Circulation, motion, and sensation intact. Range of motion: limited in left hip. Historical: - Allergies: 04:06 Codeine; jw7 - Home Meds: 04:06 levothyroxine oral [Active]; losartan oral [Active]; Metoprolol Tartrate Oral [Active]; jw7 Miralax Oral [Active]; - PMHx: 04:06 Hypertensive disorder; Hypothyroidism; Colon Cancer; Chronic back pain; Heel Fracture; jw7 - PSHx: 04:06 Cholecystectomy; Partial Hysterectomy; Operative procedure on knee; jw7 - Immunization history:: Adult Immunizations up to date, Client reports receiving the 2nd dose of the Covid vaccine, Pneumococcal vaccine is not up to date, it has been more than five years since last vaccine, Flu vaccine is up to date. - Social history:: Smoking status: Patient denies any tobacco usage or history of. - Family history:: not pertinent. Screenin:01 [facility] ED Fall Risk Assessment (Adult) History of falling in the last 3 months, jw7 including since admission Yes- single mechanical fall (1 pt) Confusion or Disorientation No (0 pts) Intoxicated or Sedated No (0 pts) Impaired Gait Yes (1 pt) Mobility Assist Device Used Yes (1 pt) Altered Elimination No (0 pt) Score/Fall Risk Level 3 or more points = High Risk Oriented to surroundings, Maintained a safe environment, Educated pt \\T\\ family on fall prevention, incl call for assistance when getting out of bed. Abuse screen: Denies threats or abuse. Denies injuries from another. Nutritional screening: No deficits noted. Tuberculosis screening: No symptoms or risk factors identified. Primary Survey: 04:02 NO uncontrolled hemorrhage observed. A: The client is awake and alert. The airway is jw7 patent. Breathing/Chest: Spontaneous respiratory effort, equal unlabored respirations, breath sounds clear bilaterally, regular pattern, symmetrical chest rise and fall. Circulation: No external hemorrhage present. Regular and strong central pulse, skin warm/dry/normal color. Disability Client is alert. Exposure/Environment: There is no evidence of uncontrolled external bleeding. No obvious injuries are noted at this time. 04:18 Reassessment Alertness and Airway: Awake and alert. The airway is patent. Breathing: jw7 Spontaneous respiratory effort, equal unlabored respirations, breath sounds clear bilaterally, regular pattern with symmetrical chest rise and fall. Circulation: No external hemorrhage noted. Regular and strong central pulse, skin warm/dry/normal color. Disability: Pupils Pupils are equal, round, reactive to light and accomodation. Alert. Assessment: 04:19 General: see triage assessment. [facility] 05:30 Reassessment: Patient appears in no apparent distress at this time. Patient and/or jw7 family updated on plan of care and expected duration. Pain level reassessed. Patient is alert, oriented x 3, equal unlabored respirations, skin warm/dry/pink. Patient states symptoms have improved. 07:00 Reassessment: Patient appears in no apparent distress at this time. No changes from [facility] previously documented assessment. Patient and/or family updated on plan of care and expected duration. Pain level reassessed. Patient is alert, oriented x 3, equal unlabored respirations, skin warm/dry/pink. Patient states feeling better. Patient states symptoms have improved. 17:21 Reassessment: attempted to call report to 2nd floor. nurse Mary unavailable at this [facility] time. Vital Signs: 04:02 BP 153 / 70; Pulse 79; Resp 17 S; Temp 98.4(O); Pulse Ox 98% on R/A; Weight 56.7 kg; jw7 Height 5 ft. 2 in. ; Pain 10/10; 05:00 BP 152 / 78; Pulse 75; Resp 16; Pulse Ox 97% on R/A; pf1 06:06 BP 146 / 68; Pulse 78; Resp 16 S; Pulse Ox 98% on R/A; jw7 07:29 BP 121 / 54; Pulse 77; Resp 16 S; Pulse Ox 98% on R/A; kc6 04:02 Body Mass Index 22.86 (56.70 kg, 157.48 cm) 7 04:02 Pain Scale: Adult jw7 [place] Coma Score: 04:02 Eye Response: spontaneous(4). Motor Response: obeys commands(6). Verbal Response: jw7 oriented(5). Total: 15. Trauma Score (Adult): 04:02 Eye Response: spontaneous(1); Verbal Response: oriented(1); Motor Response: obeys 7 commands(2); Systolic BP: > 89 mm Hg(4); Respiratory Rate: 10 to 29 per min(4); [place] Score: 15; Trauma Score: 12 ED Course: 03:53 Patient arrived in ED. jj6 04:01 Patient has correct armband on for positive identification. Bed in low position. Call jw7 light in reach. Side rails up X2. 04:05 Triage completed. jw7 04:06 Arm band placed on. jw7 04:08 Aleksey Jose MD is Attending Physician. sp4 04:25 Inserted saline lock: 22 gauge in right antecubital area, using aseptic technique. pf1 Blood collected. 05:19 Pelvis XRAY In Process Unspecified. EDMS 05:19 Femur Left XRAY In Process Unspecified. EDMS 05:19 Chest Single View XRAY In Process Unspecified. EDMS 06:00 Yadav cath inserted, using sterile technique, 16 Fr., by pa, balloon inflated, to jw7 gravity drainage, returned clear yellow urine. Patient tolerated well. 06:24 Vinnie Cain MD is Hospitalizing Provider. sp4 07:00 Report received from Caitlyn Cullen RN \\T\\ Regina RN. Client placed on continuous cardiac and kc6 pulse oximetry monitoring. NIBP monitoring applied. environmental monitoring specialist on. 07:29 No provider procedures requiring assistance completed. Patient admitted, IV remains in kc6 place. Administered Medications: 04:38 Drug: morphine IVP or IV 6 mg IVP once over 4 mins Route: IVP; Infused Over: 4 mins; jj7 Site: right antecubital; 04:38 Drug: Ondansetron IVP 4 mg IVP once; over 2 minutes Route: IVP; Site: right antecubital;jj7 06:35 Drug: Ondansetron IVP 4 mg IVP once; over 2 minutes Route: IVP; Site: right antecubital;lg3 07:28 Follow up: Response: No adverse reaction kc6 06:36 Drug: morphine IVP or IV 4 mg IVP once over 4 mins Route: IVP; Infused Over: 4 mins; lg3 Site: right antecubital; 07:28 Follow up: Response: No adverse reaction; Pain is decreased; RASS: Alert and Calm (0) [facility] 07:28 Drug: D5-1/2 NS with KCl IV 20 mEq/L 1000 ml IV at 100 ml/hr continuous Route: IV; kc6 Rate: 100 ml/hr; Site: right antecubital; 07:48 Follow up: Response: No adverse reaction; IV Status: Infusion continued upon admission; kc6 IV Intake: 1000ml Medication: 07:29 VIS not applicable for this client. kc6 Intake: 07:48 IV: 1000ml; Total: 1000ml. kc6 Outcome: 06:26 Decision to Hospitalize by Provider. sp4 07:29 Admitted to ER Hold. Please see [facility] for further documentation. kc6 07:29 Condition: stable 07:29 Instructed on the need for admit, 17:39 Patient left the ED. kc6 Signatures: Dispatcher [employer] EDMS Marie Kenney RN RN lg3 Lila Grady6 Caitlyn Cullen RN RN jw7 Alanis Shay RN RN kc6 Jose G Espinoza RN RN jj7 Cristin Roberts RN RN ernie1 Aleksey Jose MD MD sp4
--- NOTE | 2023-03-19 06:27 | EDPHYS ---
Physician Documentation [facility] Name: Solange Wheeler Age: 82 yrs Sex: Female : 1940 Arrival Date: 03/19/2023 Time: 03:53 Bed 8 Private MD: ED Physician Aleksey Jose HPI: 03/19 04:08 This 82 yrs old Female presents to ER via EMS with complaints of Fall Injury. sp4 04:15 Fall, acute Left hip pain . sp4 06:26 82-year-old female with history of hypertensive disorder, hypothyroidism, colon cancer, sp4 chronic back pain, prior right femur fracture with repair in [facility] presents with acute fall at home associated with moderate to severe left proximal hip pain but inability to ambulate. The fall and injury have occurred at 10 PM the day prior. Pain has intensified prompting call to EMS on arrival to the emergency room.. Historical: - Allergies: 04:06 Codeine; jw7 - Home Meds: 04:06 levothyroxine oral [Active]; losartan oral [Active]; Metoprolol Tartrate Oral [Active]; jw7 Miralax Oral [Active]; - PMHx: 04:06 Hypertensive disorder; Hypothyroidism; Colon Cancer; Chronic back pain; Heel Fracture; jw7 - PSHx: 04:06 Cholecystectomy; Partial Hysterectomy; Operative procedure on knee; jw7 - Immunization history:: Adult Immunizations up to date, Client reports receiving the 2nd dose of the Covid vaccine, Pneumococcal vaccine is not up to date, it has been more than five years since last vaccine, Flu vaccine is up to date. - Social history:: Smoking status: Patient denies any tobacco usage or history of. - Family history:: not pertinent. ROS: 06:26 Constitutional: Negative for fever, chills, and weight loss, MS/Extremity: Positive sp4 left hip injury, left hip pain after a fall 06:26 All other systems are negative, Exam: 06:26 Constitutional: This is a well developed, well nourished patient who is awake, alert, sp4 and in no acute distress. Head/Face: Normocephalic, atraumatic. Eyes: Pupils equal round and reactive to light, extra-ocular motions intact. Lids and lashes normal. Conjunctiva and sclera are not injected. Cornea within normal limits. Periorbital areas with no swelling, redness, or edema. ENT: Nares patent. No nasal discharge, no septal abnormalities noted. Tympanic membranes are normal and external auditory canals are clear. Oropharynx with no redness, swelling, or masses, exudates, or evidence of obstruction, uvula midline. Mucous membranes moist. Neck: Trachea midline, no thyromegaly or masses palpated, and no cervical lymphadenopathy. Supple, full range of motion without nuchal rigidity, or vertebral point tenderness. Chest/axilla: Normal chest wall appearance and motion. Nontender with no deformity. No lesions are appreciated. Cardiovascular: Regular rate and rhythm with a normal S1 and S2. No gallops, murmurs, or rubs. Normal PMI, no JVD. No pulse deficits. Respiratory: Lungs have equal breath sounds bilaterally, clear to auscultation and percussion. No rales, rhonchi or wheezes noted. No increased work of breathing, no retractions or nasal flaring. Abdomen/GI: Soft, non-tender, with normal bowel sounds. No distension or tympany. No guarding or rebound. No evidence of tenderness throughout. Back: No spinal tenderness. No costovertebral tenderness. Skin: Warm, dry with normal turgor. Normal color with no rashes, no lesions, and no evidence of cellulitis. MS/ Extremity: Pulses equal, no cyanosis. Neurovascular intact. Left lower extremity is shortened and internally rotated indicative of left hip fracture, patient is nonambulatory on arrival. Intact pulses in the left lower extremity Neuro: Awake and alert, GCS 15, oriented to person, place, time, and situation. Cranial nerves II-XII grossly intact. Motor strength 5/5 in all extremities. Sensory grossly intact. Psych: Awake, alert, with orientation to person, place and time. Behavior, mood, and affect are within normal limits 07:02 ECG was reviewed by the Attending Physician. EKG at 0 658 normal sinus rhythm with sp4 normal EKG at a rate of 72 without ectopy Vital Signs: 04:02 BP 153 / 70; Pulse 79; Resp 17 S; Temp 98.4(O); Pulse Ox 98% on R/A; Weight 56.7 kg; jw7 Height 5 ft. 2 in. ; Pain 10/10; 05:00 BP 152 / 78; Pulse 75; Resp 16; Pulse Ox 97% on R/A; pf1 06:06 BP 146 / 68; Pulse 78; Resp 16 S; Pulse Ox 98% on R/A; jw7 07:29 BP 121 / 54; Pulse 77; Resp 16 S; Pulse Ox 98% on R/A; kc6 04:02 Body Mass Index 22.86 (56.70 kg, 157.48 cm) jw7 04:02 Pain Scale: Adult jw7 [place] Coma Score: 04:02 Eye Response: spontaneous(4). Motor Response: obeys commands(6). Verbal Response: jw7 oriented(5). Total: 15. Trauma Score (Adult): 04:02 Eye Response: spontaneous(1); Verbal Response: oriented(1); Motor Response: obeys jw7 commands(2); Systolic BP: > 89 mm Hg(4); Respiratory Rate: 10 to 29 per min(4); [place] Score: 15; Trauma Score: 12 MDM: 04:48 Patient medically screened. sp4 06:21 ED course: X ray - TECHNIQUE: Two views of the left femur. COMPARISON: No relevant sp4 prior studies available. FINDINGS: Bones/joints: Comminuted displaced left intertrochanteric femur fracture. No dislocation. Soft tissues: Unremarkable. IMPRESSION: Comminuted displaced left intertrochanteric femur fracture.. ED course: Chest X ray - TECHNIQUE: Single view of the chest. COMPARISON: No relevant prior studies available. FINDINGS: Lungs: No pulmonary vascular congestion or consolidation. Pleural space: Unremarkable. No pneumothorax. Heart: Unremarkable. No cardiomegaly. Mediastinum: Unremarkable. Bones/joints: No acute fracture visualized. Mild scoliosis. Upper abdomen: No free air in the visualized upper abdomen. IMPRESSION: No acute cardiopulmonary process identified. . ED course: Pelvis - COMPARISON: No relevant prior studies available. FINDINGS: Bones/joints: Comminuted displaced left intertrochanteric femur fracture. Previous ORIF proximal right femur. Old healed fracture right inferior pubic ramus. No dislocation. Degenerative changes in the hips. Soft tissues: Unremarkable. IMPRESSION: Comminuted displaced left intertrochanteric femur fracture. 06:26 Differential diagnosis: abrasion, contusion, fracture, laceration, multiple trauma, sp4 sprain, strain. Data reviewed: vital signs, nurses notes, old medical records, lab test result(s), EKG, radiologic studies, plain films. Consideration of Admission/Observation Patient was admitted/placed on observation. Escalation of care including admission/observation considered. Management of patient was discussed with the following: Hospitalist: Admission team . Bottle And Glass Inspector: Tom GONSALEZ - Orthopedics . ED course: Patient warrants admission for evaluation for left hip fracture repair open reduction internal fixation. 03/19 04:15 Order name: Basic Metabolic Panel; Complete Time: 06:20 sp4 03/19 04:15 Order name: CBC with Diff; Complete Time: 06:20 sp4 03/19 04:15 Order name: LFT's; Complete Time: 06:20 sp4 03/19 04:15 Order name: Magnesium; Complete Time: 06:20 sp4 03/19 04:15 Order name: NT PRO-BNP; Complete Time: 06:20 sp4 03/19 04:15 Order name: PT-INR; Complete Time: 06:20 sp4 03/19 06:20 Order name: Urinalysis W/Microscopic; Complete Time: 07:02 sp4 03/19 04:50 Order name: Pelvis XRAY 4 03/19 04:51 Order name: Femur Left XRAY 4 03/19 04:51 Order name: Chest Single View XRAY 4 03/19 06:20 Order name: EKG; Complete Time: 06:21 sp4 03/19 06:31 Order name: CONS Physician Consult [facility] 03/19 04:15 Order name: IV Saline Lock; Complete Time: 04:25 sp4 03/19 04:15 Order name: Labs collected and sent; Complete Time: 04:25 sp4 03/19 04:15 Order name: O2 Per Protocol; Complete Time: 04:20 sp4 03/19 04:15 Order name: O2 Sat Monitoring; Complete Time: 04:20 sp4 03/19 04:15 Order name: NPO; Complete Time: 04:19 sp4 03/19 05:25 Order name: Yadav; Complete Time: 06:05 7 03/19 06:20 Order name: EKG - Nurse/Tech; Complete Time: 07:01 sp4 EC:02 Rate is 72 beats/min. Rhythm is regular, Normal Sinus Rhythm. QRS [place] is Normal. ID sp4 interval is normal. QRS interval is normal. QT interval is normal. No Q waves. T waves are Normal. No ST changes noted. Clinical impression: Normal ECG. Interpreted by me. Reviewed by me. Administered Medications: 04:38 Drug: morphine IVP or IV 6 mg IVP once over 4 mins Route: IVP; Infused Over: 4 mins; jj7 Site: right antecubital; 04:38 Drug: Ondansetron IVP 4 mg IVP once; over 2 minutes Route: IVP; Site: right antecubital;jj7 06:35 Drug: Ondansetron IVP 4 mg IVP once; over 2 minutes Route: IVP; Site: right antecubital;lg3 07:28 Follow up: Response: No adverse reaction kc6 06:36 Drug: morphine IVP or IV 4 mg IVP once over 4 mins Route: IVP; Infused Over: 4 mins; lg3 Site: right antecubital; 07:28 Follow up: Response: No adverse reaction; Pain is decreased; RASS: Alert and Calm (0) kc6 07:28 Drug: D5-1/2 NS with KCl IV 20 mEq/L 1000 ml IV at 100 ml/hr continuous Route: IV; kc6 Rate: 100 ml/hr; Site: right antecubital; 07:48 Follow up: Response: No adverse reaction; IV Status: Infusion continued upon admission; kc6 IV Intake: 1000ml Disposition Summary: 03/19/23 06:26 Hospitalization Ordered Notes: Hospitalization Status: Inpatient Admission sp4 Provider: Vinnie Cain Condition: Stable sp4 Problem: new sp4 Symptoms: have improved sp4 Bed/Room Type: Standard sp4 Location: Telemetry/MedSurg (Inpatient)(03/19/23 17:01) Room Assignment: 231(03/19/23 17:01) bd Diagnosis - Stress fracture, hip, unspecified sp4 - Left intertrochanteric femur fracture, comminuted and displaced sp4 Forms: - Medication Reconciliation Form sp4 - SBAR form sp4 - Leadership Thank You Letter sp4 Signatures: Dispatcher [employer] EDMS Rosey John Kimberly, RN RN kl Gibson, Lacie, RN RN lg3 Caitlyn Cullen RN RN jw7 Alanis Shay RN RN kc6 Jose G Espinoza RN RN jj7 Aleksey Jose MD MD sp4 Corrections: (The following items were deleted from the chart) 06:49 06:26 Telemetry/MedSurg (Inpatient) sp4 kl :49 06: sp4 kl 17: 06:49 [facility] ER HOLD kl bd 17: 06:49 ERHOLD- kl bd
--- NOTE | 2023-03-19 06:41 | P.HP ---
Certification for Inpatient Patient admitted to: Inpatient With expected LOS: <2 Midnights Patient will require the following post-hospital care: None Practitioner: I am a practitioner with admitting privileges, knowledge of patient current condition, hospital course, and medical plan of care. Services: Services provided to patient in accordance with Admission requirements found in Title 42 Section 412.3 of the Code of Federal Regulations Patient History Date of Service: 03/19/23 Reason for admission: Fall, hip pain History of Present Illness: 82-year-old female with past medical history of hypertension, hypothyroidism, colon cancer, chronic back pain, heel fracture presents to the emergency room with fall. Reports acute left hip pain that occurred yesterday. She reports tripping over a rug while going to the bathroom. Ambulates with a cane at baseline. She reports pain with range of motion of left lower extremity. Pain better with rest and as needed analgesics. She denies chest pain, syncope, edema, dizziness, recent infection, nausea vomiting diarrhea. Plan to admit for stress fracture, left intraprostatic femur fracture comminuted and displaced. Dr. Chilel notified in the ER, cardiology consulted for cardiac clearance. Laboratory evaluation mild leukocytosis 12.50, early left shift 83.2, normocytic anemia 11.4, 33.5, potassium, kidney function within normal limits. Mild hyperal albumin 3.1, UA negative. Allergies codeine Allergy (Verified 03/19/23 07:35) Anaphylaxis - Past Medical/Surgical History Diabetic: No -: Hypertension -: Hyperlipidemia controlled by diet -: Hypothyroidism -: Right hip fracture -: Knee surgery -: Pelvic fracture - Social History Smoking Status: Never smoker Alcohol use: No CD- Drugs: No Caffeine use: Yes Place of Residence: Home Review of Systems 10-point ROS is otherwise unremarkable Physical Examination - Physical Exam General: Alert, In no apparent distress, Oriented x3 HEENT: Atraumatic, Normocephalic, PERRLA Neck: Supple, 2+ carotid pulse no bruit, JVD not distended Respiratory: Clear to auscultation bilaterally, Normal air movement Cardiovascular: No edema, Normal pulses, Regular rate/rhythm, Normal S1 S2 Gastrointestinal: Normal bowel sounds, Soft and benign Musculoskeletal: Tenderness, Other (Left hip pain, worse with range of motion,) Integumentary: No rashes, No breakdown Neurological: Normal speech, Normal strength at 5/5 x4 extr, Normal tone - Studies Laboratory Data (last 24 hrs) 03/19/23 03/19/23 03/19/23 04:24 04:24 04:24 WBC 12.50 H Hgb 11.4 L Hct 33.5 L Plt Count 341 PT 12.0 INR 1.09 Sodium 136 Potassium 3.6 BUN 14 Creatinine 0.75 Glucose 142 H Magnesium 2.1 Total Bilirubin 0.4 AST 21 ALT 22 Alkaline Phosphatase 96 Assessment and Plan - Plan Assessment and plan stress fracture left lower extremity left intraprostatic femur fracture comminuted and displaced. Dr. Chilel notified in the ER, cardiology consulted for cardiac clearance. As needed analgesics, antiemetics PT, Fall precautions Normocytic anemia normocytic anemia 11.4, 33.5, Leukocytosis leukocytosis 12.50, early left shift 83.2, UA negative Chest x-ray UA negative. Hypoalbumin albumin 3.1 hypertension hypothyroidism heel fracture Resume appropriate home meds Fall precautions PT eval Diet n.p.o. Full code DVT SCDs Discharge Plan: Other (Acute rehab) Plan to discharge in: 48 Hours - Advance Directives Does patient have a Living Will: No Does patient have a Durable POA for Healthcare: No - Code Status/Comfort Care Code Status: Full Code Physician Review: Patient Assessed, Agree with Above Assessment and Plan Critical Care: No Time Spent Managing Pts Care (In Minutes): 50
[2023-03-19 06:42] LABS: Specific Gravity 1.011 (1.005-1.030); Urine Bacteria None Seen /HPF (<20); Urine Bilirubin NEGATIVE (Negative); Urine Blood Trace (Negative); Urine Clarity Clear (Clear); Urine Color Light-Yellow (Yellow); Urine Glucose NEGATIVE (Negative); Urine Mucus Slight /HPF (None Seen); Urine Protein NEGATIVE (Negative); Urine Urobilinogen Normal (Normal)
[2023-03-19 06:55] VITALS: BMI 22.8
[2023-03-19] MEDS ORDERED: D5.45NS W/KCL 20MEQ 1,000 ML IV ONE (07:16)
[2023-03-19] MEDS ORDERED: ONDANSETRON 4 MG/2 ML VIAL IV PRN (07:35)
--- NOTE | 2023-03-19 07:49 | EKG ---
Test Date: 2023-03-19 Test Time: 06:58:02 Deputy Sheriff: ELIZABETH MEASUREMENT RESULTS: Intervals: Rate: 72 TN: 142 QRSD: 88 QT: 388 QTc: 424 [place]: P: 54 TN: 142 QRS: 80 T: 60 INTERPRETIVE STATEMENTS: Normal sinus rhythm Normal ECG No previous ECG available for comparison Electronically Signed On 03-19-23 07:48:20 CDT by Esteban Simmons
[2023-03-19] MEDS ORDERED: PNEUMOCOCCAL VACCINE 0.5 ML IMVAC ONE (08:00)
--- NOTE | 2023-03-19 11:05 | CON ---
Date of Consultation: 03/19/2023 This is my first time seeing this patient to my knowledge. She is an 82-year-old female, who unfortu nately fell injuring her left lower extremity. She was seen and examined in the emergency department , where she was ruled out for other injuries, however, x-rays demonstrated a comminuted displaced lef t intertrochanteric fracture. Also seen is a previous proximal hip fracture on the right, treated by another physician. On seeing her today, she has no pain with palpation of any long bones or joints with the exception of pain with any movement or palpation of the left hip. Review of x-rays do demon strate a displaced intertrochanteric femur fracture on the left. Risks, benefits, and alternatives o f different methods of treating this were discussed with the patient, however, she is aware as she craft s had essentially the same plan for a hip fracture on the contralateral side. All of her questions w ere otherwise invited and answered and we will most likely move forward with this tomorrow morning. She has been seen by Cardiology, but she has not yet been seen by the hospitalists. I do not think w sanjeev will have any trouble with clearance, however, we are waiting on that. Also would like to have lyndon maldonado preparation and planning for this procedure, so we will have her n.p.o. after midnight tonight. CORIE Voice ID: [id number] Report ID: [id number]
--- NOTE | 2023-03-19 13:33 | RAD REPORT ---
EXAM DESCRIPTION: RAD - Femur Left - 03/19/2023 5:17 am CLINICAL HISTORY: The patient is 82 years old and is Female; left hip pain after a fall TECHNIQUE: Two views of the left femur. COMPARISON: No relevant prior studies available. FINDINGS: Bones/joints: Comminuted displaced left intertrochanteric femur fracture. No dislocation. Soft tissues: Unremarkable. IMPRESSION: Comminuted displaced left intertrochanteric femur fracture. Electronically signed by: Ai Trivedi MD 03/19/2023 5:29 AM CDT Due to temporary technical issues with the PACS/Fluency reporting system, reports are being signed by the in house radiologists without review as a courtesy to insure prompt reporting. The interpreting radiologist is fully responsible for the content of the report.
--- NOTE | 2023-03-19 13:38 | RAD REPORT ---
EXAM DESCRIPTION: RAD - Pelvis - 03/19/2023 5:17 am CLINICAL HISTORY: The patient is 82 years old and is Female; fall, left hip pain TECHNIQUE: Single frontal view of the pelvis. COMPARISON: No relevant prior studies available. FINDINGS: Bones/joints: Comminuted displaced left intertrochanteric femur fracture. Previous ORIF proximal right femur. Old healed fracture right inferior pubic ramus. No dislocation. Degenerative changes in the hips. Soft tissues: Unremarkable. IMPRESSION: Comminuted displaced left intertrochanteric femur fracture. Electronically signed by: Ai Trivedi MD 03/19/2023 5:28 AM CDT Due to temporary technical issues with the PACS/Fluency reporting system, reports are being signed by the in house radiologists without review as a courtesy to insure prompt reporting. The interpreting radiologist is fully responsible for the content of the report.
--- NOTE | 2023-03-19 13:49 | RAD REPORT ---
EXAM DESCRIPTION: RAD - Chest Single View - 03/19/2023 5:17 am CLINICAL HISTORY: The patient is 82 years old and is Female; CHEST PAIN TECHNIQUE: Single view of the chest. COMPARISON: No relevant prior studies available. FINDINGS: Lungs: No pulmonary vascular congestion or consolidation. Pleural space: Unremarkable. No pneumothorax. Heart: Unremarkable. No cardiomegaly. Mediastinum: Unremarkable. Bones/joints: No acute fracture visualized. Mild scoliosis. Upper abdomen: No free air in the visualized upper abdomen. IMPRESSION: No acute cardiopulmonary process identified. Electronically signed by: Ai Trivedi MD 03/19/2023 5:30 AM CDT Due to temporary technical issues with the PACS/Fluency reporting system, reports are being signed by the in house radiologists without review as a courtesy to insure prompt reporting. The interpreting radiologist is fully responsible for the content of the report.
[2023-03-19] MEDS: MORPHINE 4 MG/ML SYR IV PRN (18:42)
--- NOTE | 2023-03-19 19:41 | CON ---
Date of Consultation: 03/19/2023 Reason For Consultation: Cardiac preop assessment before hip surgery. History Of Present Illness: 82-year-old female, history of hypertension, hypothyroidism, colon cance r, no cardiac disease, presented after a ground level fall, sustained a hip fracture. I was asked to evaluate the cardiac risk preoperatively. The patient denies having any chest pain. Before the fal l, she was active. She could climb stairs without chest pain or shortness of breath. She can do mor e than 4 METS without symptoms and never had any cardiac issue. Past Medical History: As outlined above in the HPI. Medications: Refer to reconciliation sheet for the list. Allergies: CODEINE. Family History: No premature coronary artery disease or cancer. Social History: She does not smoke or drink. Does not use any drugs. Review of Systems: All systems reviewed and they were negative except as mentioned in the HPI. Physical Examination: Vital Signs: Reviewed. Head and Neck: Pupils are equal, reactive to light. Intact eye movements. No JVD. No cervical lym phadenopathy. Neck: Supple. Thyroid is not enlarged. Lungs: Clear to auscultation bilaterally. No rhonchi, rales, or crackles. No accessory muscle use. Heart: Regular rate and rhythm. No extra sounds. Abdomen: Soft, nontender. Bowel sounds positive. No organomegaly. No masses or hernia. No rigidi ty or rebound. Extremities: No edema, clubbing, cyanosis. Intact pulses. Skin: No rashes. Neurologic: Alert, awake, and oriented x3. No acute focal deficits appreciated. Investigation: Labs reviewed. Assessment/recommendation: 1.Cardiac preop risk assessment. The patient does not have any history of cardiac disease and she c an do more than 4 mets without any symptoms. At this point, she is at low cardiac risk for hip surge ry to proceed without any further cardiac testing and we will monitor her closely. 2.Hypertension. Blood pressure is controlled. Continue current management. Thank you for the consult. /SIMEON Voice ID: [id number] Report ID: [id number]
[2023-03-20] MEDS: MORPHINE 4 MG/ML SYR IV PRN ×2 (00:54→07:15)
[2023-03-20 07:25] LABS: Absolute Lymphocytes (CBC) 1.1 K/uL (0.7-4.9); Hematocrit 33.4 % (36.0-45.0); Lymphocytes % 13.4 % (15.3-44.8); MCV 89.6 fL (80-100); MPV 6.1 fL (7.6-11.3); Platelets 289 thou/uL (152-406); RBC Red Blood Cell Count 3.72 M/uL (3.86-4.86)
[2023-03-20 07:37] LABS: Magnesium 2.1 mg/dL (1.6-2.4); Potassium 3.8 mEq/L (3.5-5.1)
[2023-03-20] MEDS: Ringers Lactate 1,000 ML IV ONE ×2 (10:41→10:47)
[2023-03-20] MEDS ORDERED: CEFAZOLIN SODIUM 1 GM/VIAL ONE (11:50)
[2023-03-20] MEDS ORDERED: TRANEXAMIC ACID 1,000 MG/10 ML VIAL IV ONE (11:51)
[2023-03-20] MEDS ORDERED: propofoL 200 MG/20 ML VIAL IV ONE (11:52)
[2023-03-20] MEDS ORDERED: FENTANYL CITR 100 MCG/2 ML ONE (11:52)
[2023-03-20] MEDS ORDERED: ROCURONIUM 50 MG/5 ML VIAL IV ONE (11:53)
[2023-03-20] MEDS ORDERED: LIDOCAINE 2% MPF 5 ML VIAL ONE (11:53)
[2023-03-20] MEDS ORDERED: ONDANSETRON 4 MG/2 ML VIAL ONE ×2 (11:54→12:42)
[2023-03-20] MEDS: PIPER TAZO 3.375 GM in NA CHLORIDE 0.9% 100 ML IV SCH ×2 (12:11→20:31)
[2023-03-20] MEDS ORDERED: Phenylephrine HCl 10 MG/ML 1 ML VIAL ONE (12:37)
[2023-03-20] MEDS ORDERED: dexAMETHasone 10 MG/ML VIAL ONE (12:42)
[2023-03-20] MEDS ORDERED: KETOROLAC 30 MG/ML INJ ONE (12:42)
--- NOTE | 2023-03-20 13:11 | P.BOP ---
Preoperative diagnosis: left IT fracture Postoperative diagnosis: same Primary procedure: GINA IT fracture Estimated blood loss: 100 ccs Anesthesia: General Transferred to: Recovery Room Condition: Good
[2023-03-20] MEDS ORDERED: NEOSTIGMINE 1 MG/ML -10 ML VIAL ONE (13:22)
[2023-03-20] MEDS ORDERED: GLYCOPYRROLATE 0.2 MG/ML SYR ONE (13:22)
[2023-03-20] MEDS: HYDROMORPHONE HCL 1 MG/ML INJ ONE ×4 (13:34→14:20)
--- NOTE | 2023-03-20 13:49 | P.PN ---
Subjective Date of Service: 03/20/23 Chief Complaint: Fall, hip pain Subjective: Other (Awaiting surgery, pain controlled with as needed analgesics, n.p.o. for preop) Review of Systems 10-point ROS is otherwise unremarkable Physical Examination - Vital Signs Temperature: 98.4 F Blood Pressure: 167/74 Pulse: 78 Respirations: 18 Pulse Ox (%): 94 - Physical Exam General: Alert, In no apparent distress, Oriented x3 HEENT: Atraumatic, Normocephalic, PERRLA Neck: Supple, 2+ carotid pulse no bruit, JVD not distended Respiratory: Clear to auscultation bilaterally, Normal air movement Cardiovascular: No edema, Normal pulses, Regular rate/rhythm Capillary refill: <2 Seconds Gastrointestinal: Normal bowel sounds, Non-distended Musculoskeletal: Other (Left hip fracture, left lower extremity shortened mildly internally rotated, pain with range of motion) Integumentary: No rashes, No breakdown Neurological: Normal speech, Normal strength at 5/5 x4 extr Assessment And Plan - Plan Assessment and plan stress fracture left lower extremity left intraprostatic femur fracture comminuted and displaced. N.p.o. surgery scheduled [address] Chilel notified in the ER, cardiology consulted for cardiac clearance. As needed analgesics, antiemetics Fall precautions, PT eval postop Normocytic anemia normocytic anemia 11.4, 33.5, Leukocytosis leukocytosis 12.50, early left shift 83.2, UA negative Chest x-ray Hypoalbumin albumin 3.1 hypertension hypothyroidism heel fracture Resume appropriate home meds Fall precautions PT eval Diet n.p.o. Full code DVT SCDs Discharge Plan: Other (Acute inpatient rehab) - Code Status/Comfort Care Code Status: Full Code Physician Review: Patient Assessed, Agree with Above Assessment and Plan Critical Care: No Time Spent Managing PTS Care (In Minutes): 35
--- NOTE | 2023-03-20 13:53 | RAD REPORT ---
EXAM DESCRIPTION: - Hip in OR Left 2 View - 03/20/2023 1:26 pm CLINICAL HISTORY: LT HIP RODDING COMPARISON: None available. FINDINGS: 4 images were sent to PACS, documenting hardware positions during femoral neck internal fi xation. No radiologist was available for the procedure, nor will any image interpretation he provided . Please refer to the procedural report for additional details. Fluoroscopy time: 0.7 Minutes. IMPRESSION: Documentation of fluoroscopy utilization as above.
[2023-03-20] MEDS: CEFAZOLIN 1 GM in NA CHLORIDE 0.9% 50 ML IVPB SCH (20:31)
--- NOTE | 2023-03-20 22:44 | OP ---
Date of Procedure: 03/20/2023 Surgeon: Yoel Santos MD Preoperative Diagnosis: Left hip intertrochanteric femur fracture. Postoperative Diagnosis: Left hip intertrochanteric femur fracture. Procedure: Left hip closed reduction, intramedullary wisam fixation using the Affixus nail system. Estimated Blood Loss: 100 cc. Complications: No complications. Specimens: No pathology specimens sent. Indications For Operation: Ms. Wheeler is a female who unfortunately fell injuring her left lower extremity. She was seen and examined by the emergency room, was ruled out for other injuries with the exception of an x-ray of her left hip, which demonstrated a comminuted displaced intertrochanteric fracture. Risks, benefits, and alternatives to different methods of treating this has been discussed with the patient, also again with the family in the preop holding area and they understand things as presented and wished to proceed. Description Of Procedure: The patient was taken to the operating room and placed in supine position. General anesthesia was obtained by staff. Following this, she was then transferred onto the fracture table where all her bony prominences were checked by Anesthesia. After this, she was then positioned for the use of the fracture table and C-arm was brought in. Good AP and lateral views were obtained and the left lower extremity was then prepped and draped in the usual fashion for the procedure. Following this, the greater trochanter was marked out using the C-arm and a small vertical incision was made superior to this. This was taken down carefully through skin and soft tissues with a small incision made in the fascia. This allowed for placement of finger and the greater trochanter was easily located. After this, the starting awl was then used for appropriate starting position and it was then placed without difficulty. The guide pin was then placed without difficulty across the fracture site and hand mixer was then used to ream down past the greater trochanter. After this, a size 11 x 130 short intramedullary nail was then placed in a standard fashion, the cephalomedullary screw being placed more or less center-center with the antirotation screw placed slightly superior. These were both checked under biplanar radiography to ensure fracture reduction and position of the screws. After this, a distal interlock screw was then placed. The wounds were then irrigated. Fascia closed using heavy Vicryl suture, followed by closure of the skin using Vicryl suture and maldonado. The patient was then placed in Aquacel dressing and taken to recovery room in good condition. CORIE Voice ID: [id number] Report ID: [id number] MTDD
[2023-03-21] MEDS: CEFAZOLIN 1 GM in NA CHLORIDE 0.9% 50 ML IVPB SCH ×2 (01:44→09:02)
[2023-03-21] MEDS: PIPER TAZO 3.375 GM in NA CHLORIDE 0.9% 100 ML IV SCH (04:12)
[2023-03-21] MEDS: LEVOTHYROXINE SOD 0.025 MG TAB PO SCH (05:45)
[2023-03-21 07:38] LABS: Absolute Lymphocytes (CBC) 0.8 K/uL (0.7-4.9); Hematocrit 28.7 % (36.0-45.0); Lymphocytes % 7.1 % (15.3-44.8); MCV 89.2 fL (80-100); MPV 6.3 fL (7.6-11.3); Platelets 321 thou/uL (152-406); RBC Red Blood Cell Count 3.22 M/uL (3.86-4.86)
[2023-03-21 07:54] LABS: Magnesium 2.3 mg/dL (1.6-2.4)
--- NOTE | 2023-03-21 08:33 | P.PN ---
Subjective Date of Service: 03/21/23 Chief Complaint: Fall, hip pain Subjective: No C/O voiced Pain controlled with PRN anaglesics Review of Systems 10-point ROS is otherwise unremarkable Physical Examination - Vital Signs Temperature: 97.6 F Blood Pressure: 122/57 Pulse: 80 Respirations: 15 Pulse Ox (%): 94 - Physical Exam General: Alert, In no apparent distress, Oriented x3 HEENT: Atraumatic, Normocephalic, PERRLA Neck: Supple, 2+ carotid pulse no bruit Respiratory: Clear to auscultation bilaterally, Normal air movement Cardiovascular: No edema, Normal pulses, Regular rate/rhythm Capillary refill: <2 Seconds Gastrointestinal: Normal bowel sounds, Soft and benign Musculoskeletal: Other (Left lower extremities weakness secondary to left hip fracture, postop) Integumentary: No rashes, No breakdown, Other (Surgical dressing clean dry and intact) Neurological: Normal speech, Normal strength at 5/5 x4 extr Assessment And Plan - Plan Assessment and plan stress fracture left lower extremity left intraprostatic femur fracture comminuted and displaced. N.p.o. surgery scheduled [address] Chilel notified in the ER, cardiology consulted for cardiac clearance. As needed analgesics, antiemetics Fall precautions, PT eval postop 03/20 Postoperative Diagnosis: Left hip intertrochanteric femur fracture. Procedure: Left hip closed reduction, intramedullary wisam fixation using the Affixus nail system. Dr. Chilel, surgical dressing clean dry and intact Plan to DC to Acute inpatient rehab PT eval, TDWB Normocytic anemia normocytic anemia 11.4, 33.5, Anemia 11.6, postop 03/21 10.0 Consider type and cross, trend H&H, transfuse as needed Leukocytosis resolved leukocytosis 12.50, early left shift 83.2, Leukocytosis resolved WBC 10.7, mild left shift 84.5 morning UA negative Chest x-ray Hypoalbumin albumin 3.1 hypertension hypothyroidism heel fracture Resume appropriate home meds Fall precautions PT eval Diet n.p.o. Full code DVT SCDs Discharge Plan: Other (Inpatient acute rehab after discharge) - Code Status/Comfort Care Code Status Assessed: Yes Physician Review: Patient Assessed, Agree with Above Assessment and Plan Critical Care: No Time Spent Managing PTS Care (In Minutes): 50
[2023-03-21] MEDS: MORPHINE 4 MG/ML SYR IV PRN ×2 (09:03→20:45)
[2023-03-21] MEDS: LOSARTAN POTASSIUM 50 MG TABLET PO SCH (09:03)
[2023-03-21] MEDS ORDERED: CYCLOBENZAPRINE 10 MG TAB PO PRN (10:39)
[2023-03-21] MEDS: ENOXAPARIN 40 MG/0.4 ML SQ SCH (11:34)
[2023-03-21] MEDS: TRAMADOL HCL 50 MG TAB PO PRN (11:35)
[2023-03-21] MEDS: DOCUSATE NA 100 MG CAP PO PRN (20:51)
[2023-03-22 03:32] LABS: Absolute Lymphocytes (CBC) 1.8 K/uL (0.7-4.9); Hematocrit 24.8 % (36.0-45.0); Lymphocytes % 22.9 % (15.3-44.8); MPV 6.3 fL (7.6-11.3); Platelets 314 thou/uL (152-406); RBC Red Blood Cell Count 2.78 M/uL (3.86-4.86)
[2023-03-22 03:52] LABS: Potassium 3.9 mEq/L (3.5-5.1)
[2023-03-22] MEDS: MORPHINE 4 MG/ML SYR IV PRN (04:09)
[2023-03-22] MEDS: LEVOTHYROXINE SOD 0.025 MG TAB PO SCH (06:02)
[2023-03-22] MEDS ORDERED: NA CHLORIDE 0.9% 250 ML IV SCH (08:00)
[2023-03-22] MEDS ORDERED: NA CHLORIDE 0.9% 1,000 ML IV SCH (08:00)
[2023-03-22] MEDS ORDERED: POTASSIUM CL SA 10 MEQ TAB PO ONE (09:00)
[2023-03-22] MEDS: LOSARTAN POTASSIUM 50 MG TABLET PO SCH (10:41)
[2023-03-22] MEDS: TRAMADOL HCL 50 MG TAB PO PRN ×2 (10:41→20:15)
[2023-03-22] MEDS: ENOXAPARIN 40 MG/0.4 ML SQ SCH (10:42)
--- NOTE | 2023-03-22 13:24 | P.PN ---
Subjective Date of Service: 03/22/23 Chief Complaint: Fall, hip pain Subjective: No new changes (Pain controlled by PO regimen.), No C/O voiced Pain controlled with PRN anaglesics Review of Systems 10-point ROS is otherwise unremarkable Physical Examination - Vital Signs Temperature: 97.8 F Blood Pressure: 126/58 Pulse: 85 Respirations: 18 Pulse Ox (%): 95 - Physical Exam General: Alert, In no apparent distress, Oriented x3 HEENT: Atraumatic, Normocephalic, PERRLA Neck: Supple, 2+ carotid pulse no bruit, JVD not distended Respiratory: Clear to auscultation bilaterally, Normal air movement Cardiovascular: No edema, Normal pulses, Regular rate/rhythm, Normal S1 S2 Capillary refill: <2 Seconds Gastrointestinal: Normal bowel sounds, Soft and benign Musculoskeletal: No clubbing, No swelling, Other (LLE pain with ROM s/p LLE hip fixation, ) Integumentary: Other (inscion CDI,) Neurological: Normal speech, Normal strength at 5/5 x4 extr Assessment And Plan - Plan Assessment and plan stress fracture left lower extremity left intraprostatic femur fracture comminuted and displaced. N.p.o. surgery scheduled [address] Chilel notified in the ER, cardiology c onsulted for cardiac clearance. As needed analgesics, antiemetics Fall precautions, PT eval postop 03/20 Postoperative Diagnosis: Left hip intertrochanteric femur fracture. Procedure: Left hip closed reduction, intramedullary wisam fixation using the Affixus nail system. Dr. Chilel, surgical dressing clean dry and intact Plan to DC to Acute inpatient rehab PT eval, TDWB, Fall precautions Normocytic anemia normocytic anemia 11.4, 33.5, Anemia 11.6, postop 03/21 10.0, trend HH, type and cross, trend H&H, transfuse as needed HH <8 Leukocytosis resolved leukocytosis 12.50, early left shift 83.2, Leukocytosis resolved WBC 10.7, mild left shift 84.5 morning UA negative Hypoalbumin albumin 3.1 hypertension hypothyroidism heel fracture Resume appropriate home meds Fall precautions PT eval Diet cardiac diet Full code DVT SCDs Discharge Plan: Other - Code Status/Comfort Care Code Status Assessed: Yes Comfort Measures: Palliative Care Physician Review: Patient Assessed, Agree with Above Assessment and Plan Critical Care: No Time Spent Managing PTS Care (In Minutes): 35
[2023-03-22 19:41] VITALS: O2SAT 96
[2023-03-23 02:31] LABS: Potassium 4.1 mEq/L (3.5-5.1)
[2023-03-23] MEDS: LEVOTHYROXINE SOD 0.025 MG TAB PO SCH (05:33)
--- NOTE | 2023-03-23 08:14 | P.PN ---
Subjective Date of Service: 03/23/23 Chief Complaint: Fall, hip pain Pain controlled with PRN anaglesics Physical Examination - Vital Signs Temperature: 98.2 F Blood Pressure: 160/73 Pulse: 90 Respirations: 16 Pulse Ox (%): 98 Assessment And Plan - Plan Assessment and plan stress fracture left lower extremity left intraprostatic femur fracture comminuted and displaced. N.p.o. surgery scheduled [address] Chilel notified in the ER, cardiology consulted for cardiac clearance. As needed analgesics, antiemetics Fall precautions, PT eval postop 03/20 Postoperative Diagnosis: Left hip intertrochanteric femur fracture. Procedure: Left hip closed reduction, intramedullary wisam fixation using the Affixus nail system. Dr. Chilel, surgical dressing clean dry and intact Plan to DC to Acute inpatient rehab PT eval, TDWB, Fall precautions Normocytic anemia normocytic anemia 11.4, 33.5, Anemia 11.6, postop 03/21 10.0, trend HH, type and cross, trend H&H, transfuse as needed HH <8 Leukocytosis resolved leukocytosis 12.50, early left shift 83.2, Leukocytosis resolved WBC 10.7, mild left shift 84.5 morning UA negative Hypoalbumin albumin 3.1 hypertension hypothyroidism heel fracture Resume appropriate home meds Fall precautions PT eval Diet cardiac diet Full code DVT SCDs Physician Review: Patient Assessed, Agree with Above Assessment and Plan
--- NOTE | 2023-03-23 08:15 | P.DS ---
Admission Date: 03/19/23 Discharge Date: 03/23/23 Disposition: TRANSFER TO INPATIENT REHAB Discharge Condition: GOOD Reason for Admission: Fall, hip pain Consultations: Orthopedic hip replacement - Problems (1) Fall Current Visit: Yes Status: Acute Brief History of Present Illness: 82-year-old female with past medical history of hypertension, hypothyroidism, colon cancer, chronic back pain, heel fracture presents to the emergency room with fall. Reports acute left hip pain that occurred yesterday. She reports tripping over a rug while going to the bathroom. Ambulates with a cane at baseline. She reports pain with range of motion of left lower extremity. Pain better with rest and as needed analgesics. She denies chest pain, syncope, edema, dizziness, recent infection, nausea vomiting diarrhea. Plan to admit for stress fracture, left intraprostatic femur fracture comminuted and displaced. Dr. Chilel notified in the ER, cardiology consulted for cardiac clearance. Laboratory evaluation mild leukocytosis 12.50, early left shift 83.2, normocytic anemia 11.4, 33.5, potassium, kidney function within normal limits. Mild hyperal albumin 3.1, UA negative. Hospital Course: General: Alert, In no apparent distress, Oriented x3 HEENT: Atraumatic, Normocephalic, PERRLA Neck: Supple, 2+ carotid pulse no bruit, JVD not distended Respiratory: Clear to auscultation bilaterally, Normal air movement Cardiovascular: No edema, Normal pulses, Regular rate/rhythm, Normal S1 S2 Capillary refill: <2 Seconds Gastrointestinal: Normal bowel sounds, Soft and benign Musculoskeletal: No clubbing, No swelling, Other (LLE pain with ROM s/p LLE hip fixation, ) Integumentary: Other (inscion CDI,) Neurological: Normal speech, Normal strength at 5/5 x4 extr Plan to discharge to acute inpatient rehab post left hip fracture with intramedullary nailing by Dr. Chilel, ambulating with physical therapy, pain controlled with as needed medications, tolerating p.o. diet. Stool softeners added daily. Normocytic anemia improved since postop. Leukocytosis resolved. Can resume appropriate home medications at discharge. With Lovenox for DVT prevention. Follow-up with primary care 7 and 10 days after discharge from acute inpatient rehab. Vital Signs/Physical Exam: Temp Pulse Resp BP Pulse Ox 98.2 F 90 16 160/73 H 98 03/23/23 08:14 03/23/23 08:14 03/23/23 08:14 03/23/23 08:14 03/23/23 08:14 Laboratory Data at Discharge: WBC 7.90 thou/uL (4.3-10.9) 03/22/23 02:55 Hgb 9.6 g/dL (12.0-15.0) L 03/23/23 02:09 Hct 24.8 % (36.0-45.0) L 03/22/23 02:55 Plt Count 314 thou/uL (152-406) 03/22/23 02:55 PT 12.0 SECONDS (9.5-12.5) 03/19/23 04:24 INR 1.09 03/19/23 04:24 Sodium 138 mEq/L (136-145) 03/23/23 02:09 Potassium 4.1 mEq/L (3.5-5.1) 03/23/23 02:09 BUN 13 mg/dL (7-18) 03/23/23 02:09 Creatinine 0.61 mg/dL (0.55-1.02) 03/23/23 02:09 Glucose 104 mg/dL (74-106) 03/23/23 02:09 Magnesium 2.0 mg/dL (1.6-2.4) 03/22/23 02:55 Total Bilirubin 0.4 mg/dL (0.2-1.0) 03/19/23 04:24 AST 21 U/L (15-37) 03/19/23 04:24 ALT 22 U/L (13-56) 03/19/23 04:24 Alkaline Phosphatase 96 U/L (45-117) 03/19/23 04:24 Home Medications: Brimonidine Tartrate/Timolol [Combigan 0.2%-0.5% Eye Drops] 1 drop BEDTIME 03/19/23 Levothyroxine Sodium 25 mcg PO DAILY 03/19/23 Losartan Potassium 50 mg DAILY 03/19/23 Metoprolol Succinate 50 mg PO BEDTIME 03/19/23 Cyclobenzaprine [Flexeril*] 5 mg PO TIDP PRN tab 03/23/23 Docusate [Colace Cap*] 100 mg PO DAILY PRN cap 03/23/23 Enoxaparin Sodium [Lovenox 40 MG INJ*] 40 mg SQ DAILY syr 03/23/23 Ondansetron [Zofran*] 4 mg IV Q6HP PRN vial 03/23/23 Polyethyl Gly 3350 [Glycolax*] 17 gm PO DAILY PRN udbot 03/23/23 Polyethylene Glycol 3350 [Miralax] 17 gm PO DAILY 30 Days #30 gm 03/23/23 traMADol HCL [Ultram*] 100 mg PO TID PRN tab 03/23/23 New Medications: Polyethylene Glycol 3350 [Miralax] 17 gm PO DAILY 30 Days #30 gm Physician Discharge Instructions: TDWB on Left Leg Followup: Paco Villalpando, [Primary Care Provider] -
[2023-03-23] MEDS: ENOXAPARIN 40 MG/0.4 ML SQ SCH (08:22)
[2023-03-23] MEDS: LOSARTAN POTASSIUM 50 MG TABLET PO SCH (08:22)
[2023-03-23] MEDS: DOCUSATE NA 100 MG CAP PO PRN (08:30)
[2023-03-23] MEDS ORDERED: POLYETHYL GLY 3350 17 GM/DOSE PO PRN (09:52)
[2023-03-23 12:29] VITALS: BP 116/56; TEMP 97.2
[2023-03-23] MEDS ORDERED: METOPROLOL XL 50 MG TAB PO SCH (21:00)
== END 2023-03-23 13:09 | DRG 482 ==
LOC: ER 03:53 → ERHOLD 06:27 → 2ND 17:23
PROVIDERS: ADMIT Hospitalist; ATTEND Hospitalist
PROC: 0QS736Z Reposition Left Upper Femur with Intramedullary Internal Fixation Device, Percutaneous Approach (ICD-10-PCS; principal; 2023-03-20 11:20)
DX: S72.142A Displaced intertrochanteric fracture of left femur, initial encounter for closed fracture (principal); E03.9 Hypothyroidism, unspecified; G89.29 Other chronic pain; D64.9 Anemia, unspecified; I10 Essential (primary) hypertension; E88.09 Other disorders of plasma-protein metabolism, not elsewhere classified; M54.9 Dorsalgia, unspecified; Z88.5 Allergy status to narcotic agent; Z90.49 Acquired absence of other specified parts of digestive tract; Z79.890 Hormone replacement therapy; Z79.899 Other long term (current) drug therapy; Z85.038 Personal history of other malignant neoplasm of large intestine; Z90.711 Acquired absence of uterus with remaining cervical stump; W01.0XXA Fall on same level from slipping, tripping and stumbling without subsequent striking against object, initial encounter; Y93.01 Activity, walking, marching and hiking; Y99.9 Unspecified external cause status; Y92.012 Bathroom of single-family (private) house as the place of occurrence of the external cause
CPT/HCPCS: 36415; 51702; 71045; 72170; 80048; 80076; 81001; 83735; 83880; 85018; 85025; 85610; 86850; 86900; 86901; 86920; 93005; 96374; 96375; 97110; 97116; 97161; 97165; 97530; 99285; J0690; J1100; J1170; J1650; J2001; J2270; J2371; J2405; J2543; J2704; J2710; J3010; J7030; J7120

== ENCOUNTER 2023-03-23 12:00 | Inpatient (IN) | payer OTHER ==
--- OUTSIDE RECORDS SUMMARY | 2023-03-23 12:14 | XMS REPORT | Continuity of Care Document ---
:1940 Author Organization [facility] t Address 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 [id number] Primary Problem Common insomnia [facility] [id number] Status Problem Common post colon [facility] resection - [facility] [id number] Acquired Problem Comm on hypothyroi [facility] dism - [facility] [id number] Osteoporos Problem Com mon is, [facility]ie Center d pathologic al fracture presence [id number] Vitamin D Problem Comm on deficiency [facility] [id number] Glaucoma, Problem Comm on unspecifie [facility] [id number] SAILAJA Problem Common (generaliz [facility] ed anxiety - [facility] disorder) [facility] [id number] History of Problem Co mmon colon [facility] cancer - [facility] Routine Routine Problem Common eye exam eye exam [facility] [id number] Mixed Problem Common hyperlipid [facility] emia [facility] [id number] Essential Problem Comm on (primary) [facility] hypertensi - [facility] on [facility] Allergies, Adverse Reactions, Alerts Allergy Allergy Status Severity Reaction(s) Onset Inactive Treating Comm ents Source Name Type Date Date Clinician ciproflo DA Active U [facility] x[facility] 5[facility]10 [facility]ine DA [facility] 5-10 [facility] ciproflo DA Active U [facility] xacin 5-10 [facility] 00:00: [facility] [...] Hospita l codeine codeine Active Unknown Common [facility] Social History Social Habit Start Date Stop Date Quantity Comments Source History of Tobacco Use Co mmon [facility] Sex Assigned At Com mon [facility] Smoking Status Start Date Stop Date Source Former Smoker 2022-12-24 00:00:00 2022-12-24 00:00:00 Common S pirit - [facility] Medications Ordered Filled Start Stop Current Ordering Indication Dosage Frequency Signature Comments Components Source Medication Medication Date Date Medication? Clinician (SIG) Name Name Benzonatate Benzonatate 2022-0 No 1{capsu TID Benzonatat 100 MG 100 MG 3-24 le} e 100 MG 00:00: 00 Benzonatate Benzonatate 3-0 No 1{capsu TID Benzonatat 100 MG 100 MG 3-24 le} e 100 MG 00:00: 00 Benzonatate Benzonatate 2023-0 No 1{capsu TID Benzonatat 100 MG 100 MG 3-24 le} e 100 MG 00:00: 00 Benzonatate Benzonatate 3-0 No 1{capsu TID Benzonatat 100 MG 100 MG 3-24 le} e 100 MG 00:00: 00 Benzonatate Benzonatate 2023-0 No 1{capsu TID Benzonatat 100 MG 100 MG 3-24 le} e 100 MG 00:00: 00 Benzonatate Benzonatate 3-0 No 1{capsu TID Benzonatat 100 MG 100 MG 3-24 le} e 100 MG 00:00: 00 Ibandronate Ibandronate 2021-0 2022- No Ibandronat Sodium 150 Sodium 150 01-23 e Sodium MG MG 00:00: 00:00 150 MG 00 :00 Azelastine Azelastine 2-0 No 2{spray QD Azelastine HCl 0.15 % HCl 0.15 % 5-09 s_in_ea HCl 0.15 % 00:00: ch_nost 00 ril} Azelastine Azelastine 2-0 No 2{spray QD Azelastine HCl 0.15 % HCl 0.15 % 5-09 s_in_ea HCl 0.15 % 00:00: ch_nost 00 ril} Azelastine Azelastine 2022-0 No 2{spray QD Azelastine HCl 0.15 % [...] B12 Ipratropium Ipratropium No 2{spray TID Ipratropiu [place] s_in_ea m [place] 0.06 % 0.06 % ch_nost 0.06 % [...] d} Ipratropium Ipratropium No 2{spray TID Ipratropiu [place] s_in_ea m [place] 0.06 % 0.06 % ch_nost 0.06 % [...] FluAD 2019-03-23 Completed [facility] 15:05:00 - [facility] FluAD FluAD 2019-03-23 Completed [facility] 15:05:00 - [facility] FluAD FluAD 2019-03-23 Completed [facility] 15:05:00 - [facility] FluAD FluAD 2019-03-23 Completed [facility] 15:05:00 - [facility] FluAD FluAD 2019-03-23 Completed [facility] 15:05:00 - [facility] FluAD FluAD 2019-03-23 Completed [facility] 15:05:00 - [facility] FluAD FluAD 2019-03-23 Completed [facility] 15:05:00 - [facility] FluAD FluAD 2019-03-23 Completed [facility] 15:05:00 - [facility] FluAD FluAD 2019-03-23 Completed [facility] 15:05:00 - [facility] FluAD FluAD 2019-03-23 Completed [facility] 15:05:00 - [facility] FluAD FluAD 2019-03-23 Completed [facility] 15:05:00 - [facility] FluAD FluAD 2019-03-23 Completed [facility] 15:05:00 - [facility] FluAD FluAD 2019-03-23 Completed [facility] 15:05:00 - [facility] FluAD FluAD 2019-03-23 Completed [facility] 15:05:00 - [facility] Pneumovax (PPSV23) Pneumovax (PPSV23) 2010-09-30 Completed [facility] 15:07:00 - [facility] Pneumovax (PPSV23) Pneumovax (PPSV23) 2010-09-30 Completed [facility] 15:07:00 - [facility] Pneumovax (PPSV23) Pneumovax (PPSV23) 2010-09-30 Completed [facility] 15:07:00 - [facility] Pneumovax (PPSV23) Pneumovax (PPSV23) 2010-09-30 Completed [facility] 15:07:00 - [facility] Pneumovax (PPSV23) Pneumovax (PPSV23) 2010-09-30 Completed [facility] 15:07:00 - [facility] Pneumovax (PPSV23) Pneumovax (PPSV23) 2010-09-30 Completed [facility] 15:07:00 - [facility] Pneumovax (PPSV23) Pneumovax (PPSV23) 2010-09-30 Completed [facility] 15:07:00 - [facility] Pneumovax (PPSV23) Pneumovax (PPSV23) 2010-09-30 Completed [facility] 15:07:00 - [facility] Pneumovax (PPSV23) Pneumovax (PPSV23) 2010-09-30 Completed [facility] 15:07:00 - [facility] Pneumovax (PPSV23) Pneumovax (PPSV23) 2010-09-30 Completed [facility] 15:07:00 - [facility] Pneumovax (PPSV23) Pneumovax (PPSV23) 2010-09-30 Completed [facility] 15:07:00 - [facility] Pneumovax (PPSV23) Pneumovax (PPSV23) 2010-09-30 Completed [facility] 15:07:00 - [facility] Pneumovax (PPSV23) Pneumovax (PPSV23) 2010-09-30 Completed [facility] 15:07:00 - [facility] Pneumovax (PPSV23) Pneumovax (PPSV23) 2010-09-30 Completed [facility] 15:07:00 [facility] FluAD FluAD Unknown Completed [facility] Pneumovax (PPSV23) Pneumovax (PPSV23) Unknown Completed [facility] FluAD FluAD Unknown Completed [facility] Pneumovax (PPSV23) Pneumovax (PPSV23) Unknown Completed [facility] FluAD FluAD Unknown Completed [facility] Pneumovax (PPSV23) Pneumovax (PPSV23) Unknown Completed [facility] FluAD FluAD Unknown Completed [facility] Pneumovax (PPSV23) Pneumovax (PPSV23) Unknown Completed [facility] Vital Signs Vital Name Observation Time Observation Value Comments Source height 2022-07-31 15:30:00 64 [in_i] [facility] weight 2022-07-31 15:30:00 128.2 [lb_av] [facility] temperature 2022-07-31 15:30:00 96.6 [degF] [facility] bmi 2022-07-31 15:30:00 22 kg/m2 [facility] oximetry 2022-07-31 15:30:00 99 % [facility] respiratory rate 2022-07-31 15:30:00 18 /min Comm on [facility] blood pressure 2022-07-31 15:30:00 130 mm[Hg] [facility] systolic [facility] blood pressure 2022-07-31 15:30:00 74 mm[Hg] [facility] diastolic [facility] height 2022-07-31 15:30:00 64 [in_i] [facility] weight 2022-07-31 15:30:00 128.2 [lb_av] [facility] temperature 2022-07-31 15:30:00 96.6 [degF] Common S pirit [facility] bmi 2022-07-31 15:30:00 22 [facility] oximetry 2022-07-31 15:30:00 99 % Common [facility] respiratory rate 2022-07-31 15:30:00 18 /min Comm on [facility] blood pressure 2022-07-31 15:30:00 130 mm[Hg] Common [facility] - systolic [facility] blood pressure 2022-07-31 15:30:00 74 mm[Hg] Common [facility] - diastolic [facility] height 2022-04-24 13:10:00 64 [in_i] Common [facility] weight 2022-04-24 13:10:00 126.1 [lb_av] [facility] temperature 2022-04-24 13:10:00 97.0 [degF] Common [facility] bmi 2022-04-24 13:10:00 21.64 kg/m2 [facility] oximetry 2022-04-24 13:10:00 98 % Common [facility] respiratory rate 2022-04-24 13:10:00 18 /min Comm on [facility] blood pressure 2022-04-24 13:10:00 123 mm[Hg] Common [facility] - systolic [facility] blood pressure 2022-04-24 13:10:00 67 mm[Hg] [facility] - diastolic [facility] height 2022-01-23 13:20:00 64 [in_i] Common [facility] weight 2022-01-23 13:20:00 125.0 [lb_av] [facility] temperature 2022-01-23 13:20:00 97.2 [degF] [facility] bmi 2022-01-23 13:20:00 21.45 kg/m2 Common S pirit - [facility] oximetry 2022-01-23 13:20:00 98 % Common S [facility] respiratory rate 2022-01-23 13:20:00 18 /min Comm on [facility] - [facility] blood pressure 2022-01-23 13:20:00 137 mm[Hg] Common [facility] - systolic [facility] blood pressure 2022-01-23 13:20:00 63 mm[Hg] [facility] - diastolic [facility] height 2022-01-02 13:15:00 64 [in_i] Common S [facility] weight 2022-01-02 13:15:00 126 [lb_av] Common S pirit [facility] bmi 2022-01-02 13:15:00 21.63 kg/m2 [facility] blood pressure 2022-01-02 13:15:00 119 mm[Hg] [facility] - systolic [facility] blood pressure 2022-01-02 13:15:00 71 mm[Hg] [facility] - diastolic [facility] height 2021-12-19 15:00:00 64 [in_i] Common S [facility] weight 2021-12-19 15:00:00 126 [lb_av] Common S pirit [facility] temperature 2021-12-19 15:00:00 97.5 [degF] Common S pirit [facility] bmi 2021-12-19 15:00:00 21.63 kg/m2 Common S pirit - [facility] blood pressure 2021-12-19 15:00:00 120 mm[Hg] [facility] - systolic [facility] blood pressure 2021-12-19 15:00:00 78 mm[Hg] [facility] - diastolic [facility] height 2021-09-25 13:30:00 64 [in_i] Common S pirit [facility] weight 2021-09-25 13:30:00 127.3 [lb_av] Common [facility] - [facility] temperature 2021-09-25 13:30:00 98.2 [degF] Common [facility] bmi 2021-09-25 13:30:00 21.85 kg/m2 Common [facility] oximetry 2021-09-25 13:30:00 97 % Common [facility] respiratory rate 2021-09-25 13:30:00 18 /min Comm on [facility] blood pressure 2021-09-25 13:30:00 138 mm[Hg] Common [facility] - systolic [facility] blood pressure 2021-09-25 13:30:00 72 mm[Hg] Common [facility] - diastolic [facility] height 2021-06-27 15:40:00 64 [in_i] Common [facility] weight 2021-06-27 15:40:00 128.6 [lb_av] [facility] temperature 2021-06-27 15:40:00 98.0 [degF] Common [facility] 2021-06-27 15:40:00 22.07 kg/m2 Common [facility] oximetry 2021-06-27 15:40:00 99 % Common [facility] respiratory rate 2021-06-27 15:40:00 18 /min Comm on [facility] blood pressure 2021-06-27 15:40:00 133 mm[Hg] Common [facility] - systolic [facility] blood pressure 2021-06-27 15:40:00 75 mm[Hg] Common [facility] - diastolic [facility] height 2021-06-27 15:20:00 64 [in_i] Common [facility] weight 2021-06-27 15:20:00 128.6 [lb_av] [facility] temperature 2021-06-27 15:20:00 98.0 [degF] Common [facility] bmi 2021-06-27 15:20:00 22.07 kg/m2 Common [facility] oximetry 2021-06-27 15:20:00 99 % [facility] respiratory rate 2021-06-27 15:20:00 18 /min Comm on [facility] blood pressure 2021-06-27 15:20:00 133 mm[Hg] Common [facility] - systolic [facility] blood pressure 2021-06-27 15:20:00 75 mm[Hg] Common [facility] - diastolic [facility] height 2021-05-29 15:30:00 64 [in_i] Common [facility] weight 2021-05-29 15:30:00 130.1 [lb_av] [facility] temperature 2021-05-29 15:30:00 97.6 [degF] [facility] bmi 2021-05-29 15:30:00 22.33 kg/m2 [facility] oximetry 2021-05-29 15:30:00 99 % [facility] respiratory rate 2021-05-29 15:30:00 18 /min Comm on [facility] blood pressure 2021-05-29 15:30:00 138 mm[Hg] [facility] systolic [facility] blood pressure 2021-05-29 15:30:00 72 mm[Hg] [facility] diastolic [facility] Procedures This patient has no known procedures. Encounters Start End Encounter Admission Attending Care Care Encounter Source Date/Time Date/Time Type Type Clinicians Facility Department ID 2023-03-19 Outpatient Villalpando, [facility] [id number] Common 11:04:00 Paco 75518 [facility] 2022-12-24 Outpatient Villalpando, [facility] [id number] Common 13:27:00 Paco 88634 [facility] 2022-04-20 Outpatient Villalpando, [facility] [id number] Common 11:15:02 Paco 97979 [facility] 2021-12-20 Outpatient Villalpando, [facility] [id number] Common 11:27:02 Paco [facility] 2021-12-19 Outpatient Villalpando, STLMLC STLMLC [id number] Common 16:05:02 Paco [facility] 2021-12-18 Outpatient Villalpando, STLMLC STLMLC [id number] Common 16:10:01 Paco [facility] 2021-06-28 Outpatient Villalpando, STLMLC STLC [id number] Common 08:45:04 Paco [facility] 2021-06-23 Outpatient Villalpando, STLMLC STLC [id number] Common 11:57:02 Paco [facility] 2021-06-14 Outpatient Villalpando, STLMLC STLC [id number] Common 14:33:17 Paco [facility] 2023-03-17 2023-03-17 Outpatient GC_GCBZW_Ka PRIV PRIV [id number] [facility] 00:00:00 00:00:00 diyala_S [id number] Medic al 2022-08-10 2022-08-10 (TEL) STLC ST[facility] [id number] Co mmon 00:00:00 00:00:00 [facility] 2022-07-31 2022-07-31 OFFICE STLC STLC [id number] Co mmon 00:00:00 00:00:00 VISIT [facility] ESTAB PT - CHI LEVEL 4 [facility] 2022-07-31 2022-07-31 SUB ANNUAL STLC STLC [id number] Common 00:00:00 00:00:00 MCR [facility] WELLNESS - CHI VISIT [facility] 2022-07-16 2022-07-16 (TEL) STLMLC STLC [id number] Co mmon 00:00:00 00:00:00 [facility] 2022-04-24 2022-04-24 OFFICE STLMLC STLC [id number] Co mmon 00:00:00 00:00:00 [facility]ISIT [facility] ESTAB PT - [facility]I LEVEL 4 [facility] 2022-01-23 2022-01-23 OFFICE STLMLC STLMLC [id number] Co mmon 00:00:00 00:00:00 VISIT [facility] ESTAB PT - [facility]I LEVEL 4 [facility] 2022-01-02 2022-01-02 OFFICE STLMLC STLMLC [id number] Co mmon 00:00:00 00:00:00 VISIT [facility] ESTAB PT - CHI LEVEL 4 [facility] 2021-12-20 2021-12-20 (TEL) STLMLC STLMLC [id number] Co mmon 00:00:00 00:00:00 [facility] - [facility] 2021-12-19 2021-12-19 OFFICE STLMLC STLMLC [id number] Co mmon 00:00:00 00:00:00 VISIT NEW Spir it PT LEVEL 3 - [facility]I [facility] 2021-12-18 2021-12-18 (TEL) STLMLC STLMLC [id number] Co mmon 00:00:00 00:00:00 [facility] CHI [facility] 2021-09-25 2021-09-25 OFFICE STLMLC STLMLC [id number] Co mmon 00:00:00 00:00:00 VISIT [facility] ESTAB PT - CHI LEVEL 4 [facility] 2021-08-25 2021-08-25 (TEL) STLMLC STLMLC [id number] Co mmon 00:00:00 00:00:00 [facility] 2021-06-28 2021-06-28 (TEL) STLMLC STLMLC [id number] Co mmon 00:00:00 00:00:00 [facility] - [facility] 2021-06-28 2021-06-28 (TEL) STLMLC STLMLC [id number] Co mmon 00:00:00 00:00:00 [facility]I [facility] 2021-06-27 2021-06-27 SUB ANNUAL STLMLC STLMLC [id number] Common 00:00:00 00:00:00 MCR [facility] WELLNESS - [facility]I VISIT [facility] 2021-06-27 2021-06-27 OFFICE STLMLC STLMLC [id number] Co mmon 00:00:00 00:00:00 VISIT [facility] ESTAB PT - CHI LEVEL 4 [facility] 2021-06-21 2021-06-21 (TEL) STLMLC STLMLC [id number] Co mmon 00:00:00 00:00:00 [facility] - [facility] 2021-05-29 2021-05-29 OFFICE STLMLC STLMLC [id number] Co mmon 00:00:00 00:00:00 VISIT NEW Spir it PT LEVEL 4 - [facility] 2019-07-31 2019-07-31 Outpatient [facility] HCARG MRI [id number] [facility] 13:00:00 13:00:00 , Gilda [id number] [facility] 2019-07-30 2019-07-30 Outpatient [facility] HCARG RAD HA5 [id number] [facility] 13:00:00 13:00:00 , Gilda [id number] [facility] Results Test Description Test Time Test Comments Results Result Comments Source CBC W/AUTO DIFF 2022-12-17 00:00:00 Test Item Value Reference Range Interpretation Comme nts NUCLEATED RBCS (test code 0.0 /100 WBC'S See_Comment [Automated message] The = 48896-2) system which ge nerated this result transmit donal reference range: 0.0 /100 WBC'S. The reference range was not used to interpret th is result as normal/abnormal . ABSOLUTE EOSINOPHILS (test 0.14 K/UL See_Comment [Automated message] The code = 02573-0) system which generated this result transmit donal reference range: 0.00-0.5 0 K/UL. The reference range was not used to interpret th is result as normal/abnormal . ABSOLUTE LYMPHOCYTES (test 1.71 K/UL See_Comment [Automated message] The code = 82849-3) system which generated this result transmit donal reference range: 1.00-4.0 0 K/UL. The reference range was not used to interpret th is result as normal/abnormal . ABSOLUTE MONOCYTES (test 0.49 K/UL See_Comment [A utomated message] The code = 04296-6) system which generated this result transmit donal reference range: 0.20-1.0 0 K/UL. The reference range was not used to interpret th is result as normal/abnormal . ABSOLUTE NEUTROPHILS (test 3.11 K/UL See_Comment [Automated message] The code = 51145-4) system which generated this result transmit donal reference range: 1.50-7.5 0 K/UL. The reference range was not used to interpret th is result as normal/abnormal . BASOPHILS (test code = 0.5 % 24555-2) EOSINOPHILS (test code = 2.5 % 53965-5) HEMATOCRIT (test code = 40.0 % See_Comment [Au tomated message] The ) system which [employer] nerated this result transmit donal reference range: 34.0-45. 0 %. The reference range was not used to interpret th is result as normal/abnormal . HEMOGLOBIN (test code = 13.6 G/DL See_Comment [Au tomated message] The 8) system which [employer] nerated this result transmit donal reference range: 11.5-15. 5 G/DL. The reference range was not used to interpret th is result as normal/abnormal . LYMPHOCYTES (test code = 31.1 % 35081-9) MCH (test code = 01024-9) 31.3 PG See_Comment [ Automated message] The system which [employer] nerated this result transmit donal reference range: 25.0-33. 0 PG. The reference range was not used to interpret th is result as normal/abnormal . MCHC (test code = 99763-8) 34.0 G/DL See_Comment [Automated message] The system which [employer] nerated this result transmit donal reference range: 31.0-36. 0 G/DL. The reference range was not used to interpret th is result as normal/abnormal . MCV (test code = 75073-9) 92.2 fL See_Comment [ Automated message] The system which [employer] nerated this result transmit donal reference range: 80.0-99. 0 fL. The reference range was not used to interpret th is result as normal/abnormal . MONOCYTES (test code = 8.9 % 43364-5) NEUTROPHILS (test code = 56.6 % 29204-2) PLATELET COUNT (test code 353 K/UL See_Comment [ Automated message] The = 68089-0) system which [employer] nerated this result transmit donal reference range: 130-400 K/UL. The reference range was not used to interpret th is result as normal/abnormal . RBC (test code = 12654-4) 4.34 M/UL See_Comment [ Automated message] The system which ge nerated this result transmit donal reference range: 3.80-5.4 0 M/UL. The reference range was not used to interpret th is result as normal/abnormal . RDW (test code = 72176-8) 13.0 % See_Comment [ Automated message] The system which [employer] nerated this result transmit donal reference range: 11.5-15. 0 %. The reference range was not used to interpret th is result as normal/abnormal . WBC (test code = 98014-6) 5.5 K/UL See_Comment [ Automated message] The system which ge nerated this result transmit donal reference range: 3.5-11.0 K/UL. The reference range was not used to interpret th is result as normal/abnormal . TSH REFLEX TO FREE [id number] 00:00:00 Test Item Value Reference Range Interpretation Comments TSH REFLEX TO FREE 3.110 UIU/ML See_Comment [Automat ed message] T4 (test code = The system [facility] 22550-5) generated this result transmitted ref erence range: 0.400-4. 100 UIU/ML. The ref erence range was not u sed to interpret this result as normal/abnor mal. VITAMIN D, 25 [id number] 00:00:00 Test Item Value Reference Range Interpretation Comments VITAMIN D, 25 OH (test code = 29 NG/ML SEE BELOW NG/ML L 1988-07) LIPID PANEL WITH REFLEX DIRECT [id number] 00:00:00 Test Item Value Reference Range Interpretation Comments CALC LDL CHOL (test 116 MG/DL See_Comment H [Automa donal message] code = 22116-7) The system [facility] generated this result transmit donal reference range : <100 MG/DL. The reference range was not used to interpret this result as normal/abnormal . CHOLESTEROL (test code 224 MG/DL See_Comment H [Aut omated message] = 2093-3) The system [facility] generated this result transmit donal reference range : <200 MG/DL. The reference range was not used to interpret this result as normal/abnormal . HDL CHOLESTEROL (test 90 MG/DL See_Comment [Auto mated message] code = 2085-9) The system [facility] generated this result transmit donal reference range : >39 MG/DL. The refe rence range was not u sed to interpret th is result as normal/abnormal . RISK RATIO LDL/HDL 1.29 RATIO See_Comment [Automat ed message] (test code = 91189-8) The sy stem which generated this result transmit donal reference range : <3.22 RATIO. Th e reference range was not used to interpret this result as normal/abnormal . TRIGLYCERIDES (test 84 MG/DL See_Comment [Automa donal message] code = 2571-8) The system [facility] generated this result transmit donal reference range : <150 MG/DL. The reference range was not used to interpret this result as normal/abnormal . COMPREHENSIVE METABOLIC [id number] 00:00:00 Test Item Value Reference Range Interpretation Comments ALBUMIN (test code = 4.4 G/DL See_Comment [Autom ated message] 1751-7) The system [facility] generated this result transmit donal reference [...] MG/DL See_Comment [Automated message] 3094-0) The system [facility] generated this result transmit donal reference range : 8-23 MG/DL. The reference range was not used to interpret this result as normal/abnormal . CALCIUM (test code = 9.6 MG/DL See_Comment [Autom ated message] 65586-1) The system [facility] generated this result transmit donal reference range : 8.5-10.5 MG/DL. The reference range was not used to interpret this result as normal/abnormal . CALC A/G RATIO (test 1.8 RATIO See_Comment [Autom ated message] code = 1759-0) The system [facility] generated this result transmit donal reference range : 1.0-2.6 RATIO. The reference range was not used to interpret this result as normal/abnormal . CALC BUN/CREAT (test 16 RATIO See_Comment [Autom ated message] code = 3097-3) The system [facility] generated this result transmit donal reference range : 6-28 RATIO. The reference range was not used to interpret this result as normal/abnormal . CALC GLOBULIN (test 2.5 G/DL See_Comment [Automa donal message] code = 73109-3) The system [facility] generated this result transmit donal reference range : 1.9-3.7 G/DL. T he reference range was not used to interpret this result as normal/abnormal . CARBON DIOXIDE (test 28 MEQ/L See_Comment [Autom ated message] code = 1963-8) The system [facility] generated this result transmit donal reference range : 19-31 MEQ/L. Th e reference range was not used to interpret this result as normal/abnormal . CHLORIDE (test code 104 MEQ/L See_Comment [Automa donal message] = 5-0) The system [facility] generated this result transmit donal reference range : 95-107 MEQ/L. T he reference range was not used to interpret this result as normal/abnormal . CREATININE (test 0.79 MG/DL See_Comment [Automated message] code = 2160-0) The system [facility] generated this result transmit donal reference range : 0.60-1.30 MG/DL . The reference range was not used to interpret this result as normal/abnormal . eGFR (2020 CKD-EPI) 74 ML/MIN/1.73 See_Comment [Auto mated message] (test code = The system [facility] 67719-5) generated this result transmit donal reference range : >60 ML/MIN/1.73. Th e reference range was not used to interpret this result as normal/abnormal . GLUCOSE (test code = 100 MG/DL See_Comment H [Autom ated message] 1558-6) The system [facility] generated this result transmit donal reference range : 70-99 MG/DL. Th e reference range was not used to interpret this result as normal/abnormal . POTASSIUM (test code 4.2 MEQ/L See_Comment [Autom ated message] = 6373-3) The system [facility] generated this result transmit donal reference range : 3.5-5.4 MEQ/L. The reference range was not used to interpret this result as normal/abnormal . PROTEIN, TOTAL (test 6.9 G/DL See_Comment [Autom ated message] code = 2885-2) The system [facility] generated this result transmit donal reference range : 6.1-8.3 G/DL. T he reference range was not used to interpret this result as normal/abnormal . AST (test code = 23 U/L See_Comment [Automated message] 1920-8) The system [facility] generated this result transmit donal reference range : 9-40 U/L. The reference range was not used to interpret this result as normal/abnormal . ALT (test code = 16 U/L See_Comment [Automated message] 4022-6) The system [facility] generated this result transmit donal reference range : 5-40 U/L. The reference range was not used to interpret this result as normal/abnormal . SODIUM (test code = 141 MEQ/L See_Comment [Automa donal message] 0572-2) The system [facility] generated this result transmit donal reference range : 133-146 MEQ/L. The reference range was not used to interpret this result as normal/abnormal . - US HEAD AND [id number] 14:16:00 FAX: Michelle Xie [phone] [place]: [facility] St: REG FAX: Gilda Hathaway [phone] - Name: JAROD WHEELER [facility] : 1940 Age/S: 79/F [address] Unit #: [id number] Loc: [place] [address] Phys: Gilda Hathaway MD Acct: [id number] DisDate: Status: REG CLI PHONE #: [phone] Exam Date: 07/31/2019 1302 FAX #: [phone] Reason: THYROID NODULE EXAMS: CPT CODE: [id number] US HEAD AND NECK 59452 EXAM: Thyroid ultrasound Dictation location: R16 INDICATION: [...] is needed. at 1416 Reported and signed by:LILLY BIRD M.D. CC: Michelle Hathaway Technologist: Lorena Avery RDMS Trnscrd Date/Time/By: 07/31/2019 (141) : By: [email or web address] Orig Print D/T: S: 07/31/2019 (1588) PAGE 1 Signed Report- US HEAD AND [id number] 16:53:00 FAX: Michelle Bailey [phone] [place]: [facility] St: REG FAX: Gilda Hathaway [phone] --- Name: WHEELERTAYNavjot FOSS [facility] : 1940 Age/S: 78/F [address] Unit #: [id number] Loc: [place] [address] Phys: Gilda Hathaway MD Acct: [id number] Dis Date: Status: REG CLI PHONE #: [phone] Exam Date: 07/25/2018 1435 FAX #: [phone] Reason: THYROID NODULE EXAMS: CPT CODE: [id number] US HEAD AND NECK 51727 - US HEAD AND NECK CLINICAL HISTORY: [...] again appreciated with the largest measuring 0.2 x0.1 x 0.2 cm. Isthmus: The isthmus measures 0.21 cm in thickness. There is a hypoechoic nodule within the left isthmus measuring 0.3 x 0.1 x 0.3 cm. Both lobes demonstrate symmetric color Doppler flow. IMPRESSION: Homogeneous thyroid with multiple bilateral cysts. There is a subcentimeter hypoechoic n odule within the left isthmus. Surveillance imaging is recommended. at 1653 Reported and signed by: Yue Bojorquez MD CC: Michelle Chaudhary SENIOR [employer] TECHNICIAN; Gilda Hathaway Technologist: Lorena Avery RDMS Trnscrd Date/Time/By: 07/25/2018 (1652) : By: [email or web address] Orig Print D/T: S: 07/25/2018 (5674) PAGE 1 Signed Report
[2023-03-23] MEDS ORDERED: POLYETHYL GLY 3350 17 GM/DOSE PO PRN (14:35)
[2023-03-23] MEDS ORDERED: CYCLOBENZAPRINE 10 MG TAB PO PRN (14:36)
[2023-03-23] MEDS ORDERED: ONDANSETRON 4 MG (ODT) TAB PO PRN (14:37)
[2023-03-23 14:39] VITALS: BMI 2941.2
[2023-03-23] MEDS: TRAMADOL HCL 50 MG TAB PO PRN ×2 (14:55→20:10)
[2023-03-23] MEDS ORDERED: MELATONIN 3 MG TABLET PO PRN (16:49)
[2023-03-23 18:09] LABS: Urine Bacteria None Seen /HPF (<20); Urine Bilirubin NEGATIVE (Negative); Urine Blood 1+ (Negative); Urine Clarity Clear (Clear); Urine Color Light-Yellow (Yellow); Urine Glucose NEGATIVE (Negative); Urine Mucus Slight /HPF (None Seen); Urine Protein NEGATIVE (Negative); Urine Urobilinogen Normal (Normal); Urine pH 6.5 (5.0-7.0)
[2023-03-23] MEDS: DOCUSATE NA/SENNA CONC 1 TAB PO SCH (20:10)
[2023-03-23] MEDS: BRIMONIDINE TARTRATE OPTH SCH (20:11)
[2023-03-23] MEDS: TIMOLOL OPTH SCH (20:11)
[2023-03-23] MEDS: METOPROLOL XL 50 MG TAB PO SCH (20:11)
--- NOTE | 2023-03-23 22:56 | HP ---
Date of Admission: 03/23/2023 Time Of Service: 7 p.m. Chief Complaint: "I fell and broke my left hip." History Of Present Illness: Ms. Wheeler is an 82-year-old right-handed patient who fell in her bathro om on 03/19/2023. She developed severe pain in the left lower extremity and was unable to bear weigh t. She was [facility] and imaging identified a comminuted displaced left intertrochanteric fracture. White blood cell count was elevated to 12.5 with shift of 82.3. She had a normocytic anem ia with hemoglobin 11.4, hematocrit 33.5, glucose slightly elevated at 136. She also had a heel frac ture in addition to the intertrochanteric fracture on the left. She was seen by Orthopedic Service a nd they did a closed reduction with intramedullary wisam fixation using the [employer] system. She had pa in management with narcotic medications and had hypertension, hypothyroidism addressed along with sup portive care for heel fracture. She did have significant pain, elevated blood pressures and decrease d hemoglobin and hematocrit following surgery. Prior to her fall, she was fully independent, ambulat ing without assistive device, taking care of all her activities independently. Currently, she requir es moderate assistance for transfers and mobilization and ambulation and performing all ADLs. She al so requires physician evaluation for medical comorbid conditions on a daily basis, penitentiary and social work evaluation for her disposition. This is all to help her return to a full independ ence at home. Past Medical History: Hypertension, dyslipidemia, hypothyroidism, right hip fracture. Allergies: CODEINE. Medications: Flexeril 5 mg 3 times daily, Colace 100 mg daily, Lovenox 40 mg subcutaneously daily, S ynthroid 0.025 mg daily, Cozaar 50 mg daily, melatonin 3 mg at bedtime, Toprol-XL 50 mg daily, Zofran 4 mg every 6 hours as needed, Senokot-S 2 at bedtime, Ultram 50 mg 3 times daily. Family History: Noncontributory. Laboratory Studies: Urinalysis shows 1+ blood, 5-10 red blood cells, otherwise unremarkable. White blood cell count 7.9, hemoglobin 8.7, hematocrit 24.8, platelets 314. Sodium 134, potassium 3.9, chl oride 109, BUN 21, creatinine 0.96, calcium 7.7, magnesium 2.0, albumin 3.1. Family History: Noncontributory. Review of Systems: Ms. Wheeler has a pain at max is 8 of a 10 when she is mobilizing. She was actually sitting in the eelchair for about 3 hours a day and that did cause some pain, but pain is medicated by medications. Otherwise, mild tingling in the extremities. No significant swelling. No rash. She is sleeping we ll, eating well, just had a bowel movement earlier and no other positives on a 10-point systems revie w. Physical Examination: Vital Signs: Blood pressure 142/63, pulse 90-101, respiratory rate 14 to 18, temperature 97.2, oxyge n saturation 94%. Weight 122 pounds, height 5 feet 4 inches. General: She is normocephalic, atraumatic. Sclerae anicteric. Oropharynx is pink and moist. Neck: Supple. Chest: Clear. Heart: Regular. Extremities: On the left lower extremity, mild edema postoperatively and she has good hemostasis at her surgical site. Neurologic: Cranial nerves giveaway weakness in her left lower extremity due to the hip fracture and heel fracture. Current Level Of Functioning: Independent for eating, oral hygiene, supervision for toileting, moder ate assist for bathing, independent for upper body dressing, moderate assist for lower body dressing and donning and doffing of shoes, rolling drspo-ue-gjyt and kbst-pm-zneat and zes-hj-yfvgb, moderate assistance; nhh-hl-wjhwl transfer, moderate assistance; toilet transfer, moderate assistance; ambulat ion, moderate assistance; and walking 50 feet with a rolling walker, not yet doing stairs. Rehab And Medical Assessment And Plan: Ms. Wheeler is admitted to the inpatient rehabilitation unit w ith an impairment category of 07 orthopedic. Her impairment group code is 08.11 status post unilater al hip fracture. Her etiologic diagnosis is comminuted, displaced, left intertrochanteric femur frac ture and heel fracture, comorbid chronic anemia, decreased mobility, decreased physical functioning, difficulty walking, falls, fatigue, hypertension, hypoalbuminemia, hypothyroidism, postop pain, weakn ess. Plan: 1.She will have physical and occupational therapy, if need be speech therapy for 3.5 hours, 5 of 7 d ays. 2.We will continue with pain management using Ultram and gabapentin as appropriate. Continue with F lexeril and adjust the dosage as needed. 3.Continue with Synthroid for hypothyroidism. Continue Cozaar, Toprol for blood pressure and heart rate control. 4.Continue Lovenox for DVT prophylaxis. Continue with melatonin for insomnia. Continue Zofran as n eeded for nausea and Senokot for constipation. Impact Of Comorbidities: Currently, her anemia will the evaluated by repeat hemoglobin and hematocri t. If need be, she will receive a unit of blood. She is currently on Hemocyte Plus that will be con tinued as well. She is at risk of infection and pneumonia. She will have incentive spirometry, whic h will be encouraged. Also fall risk and fall precautions adhered to at all times. Rehab Specific Plan: Ms. Wheeler will have 3 hours a day, 5 of 7 days of physical and occupational th erapy. She will work on improving her bed, toilet, chair, and shower transfers. 1.Performing shower and chair will improve that to a modified independence level. 2.Ambulating 200 feet, modified independence. 3.Up and down 15 steps with modified independence. 4.Propelling a wheelchair 250 feet with modified independence. 5.Performing all cognitive functioning with modified independence. 6.Managing all of her medications independently. Ms. Wheeler has a good understanding of the process of admission to the inpatient rehabilitation unit and her discharge as well. She has a potential to make improvement and will require physical and occ upational therapy. If need be, services such as the Orthopedic Service, Wound Care, ID Service will be consulted. Given her complex medical condition and risk of further complications, rehabilitation cannot be safel y or effectively performed at a lower level of facility such as penitentiary. Barriers To Discharge: Currently anemia could be a barrier. We will follow and hemoglobin hematocri t, again we will transfuse as need be. Also pain will be mitigated by neuromodulators, muscle relaxa nts, judicious use of narcotics, NSAIDs as well. Estimated Length Of Stay: About 13 days. Disposition: Home with family. Prognosis: Good. Rehab Goals: 1.Independent with upper and lower body dressing, transferring, toileting, showering. 2.Independent with ambulating 250 feet. 3.Independently going up and down 15 steps. 4.Independently propel a wheelchair 250 feet. 5.Independently manage all of her comorbid condition medications. 6.Independently perform all cognitive functioning. The above goals were reviewed with Ms. Wheeler and she is in agreement. By signing this document, I acknowledge I personally performed a full physical examination on Ms. Tia lawler no later than 24 hours after admission to the inpatient rehabilitation facility and determined th at she is able to tolerate the above course of treatment at an intensive level for a reasonable perio d of time. A detailed individualized plan of care for her will be completed by hospital day 4 based on the preadmission screen, history and physical and therapy evaluations. JAJA Voice ID: [id number]
[2023-03-24] MEDS: LEVOTHYROXINE SOD 0.025 MG TAB PO SCH (05:06)
[2023-03-24 06:04] LABS: Absolute Lymphocytes (CBC) 1.2 K/uL (0.7-4.9); Hematocrit 24.5 % (36.0-45.0); Lymphocytes % 19.8 % (15.3-44.8); MCV 88.7 fL (80-100); Platelets 356 thou/uL (152-406); RBC Red Blood Cell Count 2.76 M/uL (3.86-4.86)
[2023-03-24 06:35] LABS: Albumin 2.3 g/dL (3.4-5.0); Magnesium 1.9 mg/dL (1.6-2.4); Potassium 3.6 mEq/L (3.5-5.1); Prealbumin 9.7 mg/dL (20-40)
[2023-03-24] MEDS: ENOXAPARIN 40 MG/0.4 ML SQ SCH (07:56)
[2023-03-24] MEDS: DOCUSATE NA 100 MG CAP PO SCH (07:56)
[2023-03-24] MEDS: LOSARTAN POTASSIUM 50 MG TABLET PO SCH (07:57)
[2023-03-24] MEDS: DOCUSATE NA/SENNA CONC 1 TAB PO SCH (19:47)
[2023-03-24] MEDS: BRIMONIDINE TARTRATE OPTH SCH (19:47)
[2023-03-24] MEDS: TIMOLOL OPTH SCH (19:47)
[2023-03-24] MEDS: METOPROLOL XL 50 MG TAB PO SCH (19:47)
[2023-03-24] MEDS: TRAMADOL HCL 50 MG TAB PO PRN (19:52)
[2023-03-25] MEDS: LEVOTHYROXINE SOD 0.025 MG TAB PO SCH (05:01)
[2023-03-25] MEDS: LOSARTAN POTASSIUM 50 MG TABLET PO SCH (07:39)
[2023-03-25] MEDS: ENOXAPARIN 40 MG/0.4 ML SQ SCH (07:39)
[2023-03-25] MEDS: DOCUSATE NA 100 MG CAP PO SCH (07:39)
[2023-03-25] MEDS: TRAMADOL HCL 50 MG TAB PO PRN ×2 (08:39→19:54)
[2023-03-25 12:05] LABS: SARS-CoV-2 Antigen Rapid Res Negative (Negative)
[2023-03-25] MEDS: BRIMONIDINE TARTRATE OPTH SCH (19:54)
[2023-03-25] MEDS: DOCUSATE NA/SENNA CONC 1 TAB PO SCH (19:54)
[2023-03-25] MEDS: TIMOLOL OPTH SCH (19:54)
[2023-03-25] MEDS: METOPROLOL XL 50 MG TAB PO SCH (20:07)
[2023-03-25] MEDS: ENSURE HIGH PROTEIN 237 ML CAN PO SCH (20:09)
[2023-03-25] MEDS ORDERED: GABAPENTIN 300 MG CAP PO SCH (21:00)
--- NOTE | 2023-03-25 21:48 | PN ---
Date of Progress Note: 03/25/2023 Time: 01:40 p.m. Subjective: Ms. Wheeler is resting in bed in between therapy sessions. She has no new complaints exc ept there are some mild spasms in the area of the left hip and slight pain in that region where she h ad left hip surgery repair from fracture. Otherwise, no problems with eating. Bowel movements are o antonia and just mild of worsening pain, which actually is being addressed by a patches, pain indications , and neuro modulators. No other positives again on a systems review. Physical Examination: Vital Signs: Blood pressure 155/67, pulse 75, respiratory rate 16, temperature 97.2, oxygen saturati on 99%. HEENT: Ms. Wheeler is normocephalic, atraumatic. Sclerae anicteric. Oropharynx pink and moist. Neck: Supple. Chest: Clear. Trace edema in the left lower extremity. Neurologic: Otherwise, she has giveaway weakness on the left side and lower extremity. Otherwise, n o focal deficits noted. Laboratory Studies: White blood cell count 6.2, hemoglobin 8.5, platelet count 356. Sodium 139, pot assium 3.6, chloride 107, carbon dioxide 28, BUN 12, creatinine 0.59, prealbumin 9.7, albumin 3.2, ma gnesium 1.9, calcium 7.9. Urinalysis; 1+ blood, 5-10 red blood cells. COVID-19 test is negative. X-ray/imaging: No new x-rays or imaging. Medications: Flexeril 5 mg 3 times daily for muscle spasm, Colace 200 mg daily, Lovenox 40 mg subcut aneously daily, Synthroid 0.025 mg daily, Cozaar 50 mg daily, melatonin 3 mg at bedtime, Toprol-XL 50 mg daily, Ensure Enlive for malnutrition twice daily, Zofran 4 mg every 6 hours as needed , Senokot-S 2 at bedtime, Ultram 50 mg 3 times daily as needed. Current Functional Status: Today, minimum assist for bathing, contact guard for upper body dressing, moderate assist for lower body dressing. She did have her touchdown weightbearing status maintained in the left lower extremity where she has hip fracture. With physical therapy, she ambulated 90 fee t 3 times with minimal assistance using a rolling walker. She was able to maintain a touchdown weigh tbearing status. She propelled a wheelchair 150 feet with physical therapist in tow. Progress Towards Rehabilitation Goals: Ms. Wheeler is making good progress towards her goals of becom ing modified independent with upper and lower body dressing, transferring, toileting, showering, ambu lating 250 feet with modified independence, propelling a wheelchair 250 feet with modified independen ce and going up and down 10 steps with modified independence. Assessment: Ms. Wheeler is an 82-year-old patient with left hip fracture after falling from a standin g position. She is doing fairly well with all of her therapy and progressing at a pace. The fractur e is a left intertrochanteric femur and she has had surgery. She has comorbid hypertension, hypoalbu minemia, hypothyroidism, postoperative pain, weakness, fatigue, and chronic anemia. She also has a h eel fracture. Plan: 1.Continue with physical and occupational therapy for 3 hours a day, 5 out of 7 days. 2.All of her medications as above will be continued including for pain with gabapentin, Ultram, Flex eril, [place] as appropriate. Continue Synthroid for hypothyroidism, Cozaar and Toprol for blood press ure management. Continue Lovenox for DVT prophylaxis, melatonin for insomnia, Zofran for nausea, Sen okot for constipation. Comorbidities That Continue To Impact Her Rehabilitation: Currently, her comorbidities are stably ma naged and do not negatively impact her rehabilitation. She does have some again nighttime pain and d ifficulty with sleep, but otherwise is doing well and she has low prealbumin and is on protein supple mentation. LB/MODL Voice ID: [id number] Report ID: [id number]
[2023-03-26] MEDS: LEVOTHYROXINE SOD 0.025 MG TAB PO SCH (05:10)
[2023-03-26] MEDS: ENSURE HIGH PROTEIN 237 ML CAN PO SCH ×2 (07:47→19:59)
[2023-03-26] MEDS: LOSARTAN POTASSIUM 50 MG TABLET PO SCH (07:47)
[2023-03-26] MEDS: DOCUSATE NA 100 MG CAP PO SCH (07:47)
[2023-03-26] MEDS: ENOXAPARIN 40 MG/0.4 ML SQ SCH (07:47)
[2023-03-26] MEDS: TRAMADOL HCL 50 MG TAB PO PRN ×2 (07:48→19:59)
[2023-03-26] MEDS: BRIMONIDINE TARTRATE OPTH SCH (19:59)
[2023-03-26] MEDS: DOCUSATE NA/SENNA CONC 1 TAB PO SCH (19:59)
[2023-03-26] MEDS: METOPROLOL XL 50 MG TAB PO SCH (19:59)
[2023-03-26] MEDS: TIMOLOL OPTH SCH (19:59)
--- NOTE | 2023-03-26 20:45 | PN ---
Date of Progress Note: 03/26/2023 Time Of Service: 1:40 p.m. Subjective: Ms. Narvaez is resting in bed in between therapy sessions. She is doing very well. Says her pain is managed. She is having bowel movements, sleeping well, eating well. No other new compl aints. Review of Systems: Again, no fevers, chills, myalgias, or arthralgias. No rash, headache, weight change. In her left l ower extremity, where she has the left hip fracture, she has some pain when standing and bearing weig ht, but otherwise doing well. Physical Examination: Vital Signs: Blood pressure 150/66, pulse 85, respiratory rate 16, temperature 97, oxygen saturation 95% on room air. General: Ms. Wheeler is resting in bed. She is in no acute distress. HEENT: She is normocephalic, atraumatic. Sclerae anicteric. Oropharynx pink and moist. Neck: Supple. Chest: Clear. Extremities: Left lower extremity showed no significant clubbing, cyanosis, or edema as well as the right lower extremity. Laboratory Studies: No new laboratory studies. X-ray And Imaging: No new x-rays or imaging. Medications: Her medications have been reviewed and remained unchanged. Current Functional Status: Today, she did lycpct-iq-sjf transfers independently. Performed sit-to-s upine transfers with standby assistance. She ambulated 175 feet with standby assistance using a roll ing walker. In terms of her occupational therapy, she did participate well, did bilateral upper extr emity exercises with Thera-Band to improve strength. Did take some rest breaks and she is doing well enough to not require speech therapy. Progress Towards Rehabilitation Goals: Ms. Wheeler is making excellent progress towards her goals of becoming independent with upper and lower body dressing, transferring, toileting, ambulating 250 feet with modified independence, up and down 10 steps with modified independent, performing cognitive fun ctioning independently and managing all of her medications and comorbid condition independently. Assessment: Ms. Wheeler is an 82-year-old patient in the rehabilitation unit with left hip fracture, status post surgical repair. She has fatigue, weakness, chronic anemia, hypothyroidism, hypoalbumine rhonda, and heel fracture. Plan: 1.Continue with physical and occupational therapy for 3 hours a day, 5 to 7 days. 2.Comorbid conditions are managed by continuing her current medications. She has Lovenox for DVT pr ophylaxis; melatonin for insomnia; Zofran for nausea; Senokot for constipation; and gabapentin, Ultra m, Flexeril, and [place] for pain. Comorbidities That Continue To Impact Her Rehabilitation: Currently nighttime pain has improved, but she could have some daytime somnolence, but is really doing well. She has low prealbumin and is on protein supplementation. Other comorbidities are not negatively impacting her rehabilitation. GARRETT/SIMEON Voice ID: [id number] Report ID: [id number]
[2023-03-27] MEDS: TRAMADOL HCL 50 MG TAB PO PRN ×3 (05:00→20:08)
[2023-03-27] MEDS: LEVOTHYROXINE SOD 0.025 MG TAB PO SCH (05:00)
[2023-03-27] MEDS: ENOXAPARIN 40 MG/0.4 ML SQ SCH (07:39)
[2023-03-27] MEDS: DOCUSATE NA 100 MG CAP PO SCH (07:39)
[2023-03-27] MEDS: ENSURE HIGH PROTEIN 237 ML CAN PO SCH ×2 (07:39→20:04)
[2023-03-27] MEDS: LOSARTAN POTASSIUM 50 MG TABLET PO SCH (07:39)
[2023-03-27] MEDS: GABAPENTIN 100 MG CAP PO SCH ×2 (13:49→20:05)
[2023-03-27] MEDS: METOPROLOL XL 50 MG TAB PO SCH (20:04)
[2023-03-27] MEDS: DOCUSATE NA/SENNA CONC 1 TAB PO SCH (20:04)
[2023-03-27] MEDS: BRIMONIDINE TARTRATE OPTH SCH (21:00)
[2023-03-27] MEDS: TIMOLOL OPTH SCH (21:00)
[2023-03-28 04:00] LABS: Absolute Lymphocytes (CBC) 2.1 K/uL (0.7-4.9); Hematocrit 25.6 % (36.0-45.0); Lymphocytes % 26.5 % (15.3-44.8); MCV 90.8 fL (80-100); Platelets 499 thou/uL (152-406); RBC Red Blood Cell Count 2.82 M/uL (3.86-4.86)
[2023-03-28 04:04] LABS: Albumin 2.5 g/dL (3.4-5.0); Magnesium 2.2 mg/dL (1.6-2.4); Potassium 4.4 mEq/L (3.5-5.1); Prealbumin 11.6 mg/dL (20-40)
[2023-03-28] MEDS: ENSURE HIGH PROTEIN 237 ML CAN PO SCH ×2 (08:00→19:12)
[2023-03-28] MEDS: LOSARTAN POTASSIUM 50 MG TABLET PO SCH (08:38)
[2023-03-28] MEDS: GABAPENTIN 100 MG CAP PO SCH ×2 (08:38→19:12)
[2023-03-28] MEDS: ENOXAPARIN 40 MG/0.4 ML SQ SCH (08:38)
[2023-03-28] MEDS: DOCUSATE NA 100 MG CAP PO SCH (08:38)
[2023-03-28] MEDS: LEVOTHYROXINE SOD 0.025 MG TAB PO SCH (08:38)
[2023-03-28] MEDS: TRAMADOL HCL 50 MG TAB PO PRN ×2 (08:53→19:11)
[2023-03-28] MEDS: METOPROLOL XL 50 MG TAB PO SCH (19:10)
[2023-03-28] MEDS: DOCUSATE NA/SENNA CONC 1 TAB PO SCH (19:11)
[2023-03-28] MEDS: TIMOLOL OPTH SCH (19:14)
[2023-03-28] MEDS: BRIMONIDINE TARTRATE OPTH SCH (19:14)
--- NOTE | 2023-03-28 20:51 | PN ---
Date of Progress Note: 03/28/2023 Time Of Service: 1:35 p.m. Subjective: Ms. Wheeler is resting in bed between therapy sessions. She is doing very well. She is happy with her progress. She says the pain is minimal, although could go up to 7/10 as she ambulates . Review of Systems: No fevers or chills. Mild pain at the left hip surgical site. Otherwise, no nausea or vomiting, samantha lgias, arthralgias, rash, headache, weight change. No psychiatric issues. Physical Examination: Vital Signs: Blood pressure 148/67, pulse 93, respiratory rate of 16, temperature 97.3. O2 saturati on 98%. General: Ms. Narvaez is resting comfortably. HEENT: Again normocephalic, atraumatic. Sclerae anicteric. Oropharynx pink and moist. Neck: Supple. Chest: Clear. Heart: Regular. Extremities: Show no significant edema, cyanosis, or clubbing, not even in the left lower extremity where she has a left hip fracture. Laboratory Studies: White blood cell count 7.8, hemoglobin 8.7, platelets 499. Sodium 139, potassiu m 4.4, chloride 106, carbon dioxide 31, BUN 15, creatinine 0.67. Prealbumin improved slightly from 9 .7 to 11.6. Albumin improved slightly from 2.3 to 2.5, that is from 03/24/23 to 03/28/23. X-ray And Imaging: No new x-rays or imaging. Medications: Have been reviewed and remained unchanged. Current Functional Status: Today, she ambulated 250 feet, another 100 feet twice and [address]by assistance using a rolling walker. She ascended and descended 3 steps twice, both times using bilateral handrails with minimum assistance. She mobilized wheelchair 250 feet with independence. S upine to sit transfers done independently. Multiple flz-qu-sjohz transfers done independently. She is released in her room to get to the restroom. Progress Towards Rehabilitation Goals: Ms. Wheeler has made excellent progress towards her rehabilita tion goals of becoming independent with transfers, upper and lower body dressing, mobilizing now 250 feet independently with a wheelchair and is beginning to ambulate much better with a rolling walker b ut still at standby assistance covering 250 feet. Assessment And Plan: Ms. Wheeler is an 82-year-old patient with left hip fracture, status post surgic al repair who is doing quite well with physical and occupational therapy. She has chronic anemia, hy pothyroidism, heel fracture, hypoalbuminemia. Plan: 1.Continue with physical and occupational therapy for 3 hours a day, 5 of 7 days. 2.She has comorbidities for which medications are continued including gabapentin, Ultram, Flexeril a nd [place] for pain. She has DVT prophylaxis on board with Lovenox, Zofran for nausea, Senokot for con stipation. Comorbidities That Continue To Impact Her Rehabilitation: At this point, her pain is improved and ramiro pace has adequate control of pain as she does her therapy. Her other conditions and comorbidities are s tably managed. JAJA Voice ID: [id number] Report ID: [id number]
[2023-03-29] MEDS: LEVOTHYROXINE SOD 0.025 MG TAB PO SCH (06:38)
[2023-03-29] MEDS: DOCUSATE NA 100 MG CAP PO SCH (07:44)
[2023-03-29] MEDS: ENOXAPARIN 40 MG/0.4 ML SQ SCH (07:44)
[2023-03-29] MEDS: DOCUSATE NA/SENNA CONC 1 TAB PO SCH ×2 (07:44→20:08)
[2023-03-29] MEDS: LOSARTAN POTASSIUM 50 MG TABLET PO SCH (07:44)
[2023-03-29] MEDS: ENSURE HIGH PROTEIN 237 ML CAN PO SCH ×2 (07:45→20:00)
[2023-03-29] MEDS: TRAMADOL HCL 50 MG TAB PO PRN (07:45)
[2023-03-29] MEDS: GABAPENTIN 100 MG CAP PO SCH ×2 (07:46→20:08)
--- NOTE | 2023-03-29 14:01 | P.RH.PN ---
Estimated Length of Stay: 12 Expected Discharge Date: 04/03/23 Discharge Disposition Plan: Home Family Support: Yes [facility] Goal: Mobility, Transfers, Self Care Vital Signs: Last Vital Signs Temp 97.4 F 03/29/23 08:00 Pulse 72 03/29/23 08:00 Resp 16 03/29/23 08:45 BP 126/61 03/29/23 08:00 Pulse Ox 95 03/29/23 08:45 Laboratory: Laboratory Last Values WBC 7.80 thou/uL (4.3-10.9) 03/28/23 03:09 RBC 2.82 M/uL (3.86-4.86) L 03/28/23 03:09 Hgb 8.7 g/dL (12.0-15.0) L 03/28/23 03:09 Hct 25.6 % (36.0-45.0) L 03/28/23 03:09 MCV 90.8 fL (80-100) 03/28/23 03:09 MCH 31.0 pg (27.0-35.0) 03/28/23 03:09 MCHC 34.2 g/dL (32.0-36.0) 03/28/23 03:09 RDW 13.6 % (12.1-15.2) 03/28/23 03:09 Plt Count 499 thou/uL (152-406) H 03/28/23 03:09 MPV 6.0 fL (7.6-11.3) L 03/28/23 03:09 Neutrophils % 57.3 % (41.7-73.7) 03/28/23 03:09 Lymphocytes % 26.5 % (15.3-44.8) 03/28/23 03:09 Monocytes % 13.0 % (3.3-12.3) H 03/28/23 03:09 Eosinophils % 2.8 % (0-4.4) 03/28/23 03:09 Basophils % 0.4 % (0-1.3) 03/28/23 03:09 Absolute Neutrophils 4.5 K/uL (1.8-8.0) 03/28/23 03:09 Absolute Lymphocytes 2.1 K/uL (0.7-4.9) 03/28/23 03:09 Absolute Monocytes 1.0 K/uL (0.1-1.3) 03/28/23 03:09 Absolute Eosinophils 0.2 K/uL (0-0.5) 03/28/23 03:09 Absolute Basophils 0.0 K/uL (0-0.5) 03/28/23 03:09 Sodium 139 mEq/L (136-145) 03/28/23 03:09 Potassium 4.4 mEq/L (3.5-5.1) 03/28/23 03:09 Chloride 106 mEq/L (98-107) 03/28/23 03:09 Carbon Dioxide 31 mEq/L (21-32) 03/28/23 03:09 Anion Gap 6.4 mEq/L (5.0-15.0) 03/28/23 03:09 BUN 15 mg/dL (7-18) 03/28/23 03:09 Creatinine 0.67 mg/dL (0.55-1.02) 03/28/23 03:09 Est GFR (CKD-EPI) 87 ml/min (=/>90) L 03/28/23 03:09 Glucose 100 mg/dL (74-106) 03/28/23 03:09 Calcium 8.6 mg/dL (8.5-10.1) 03/28/23 03:09 Magnesium 2.2 mg/dL (1.6-2.4) 03/28/23 03:09 Albumin 2.5 g/dL (3.4-5.0) L 03/28/23 03:09 Prealbumin 11.6 mg/dL (20-40) L 03/28/23 03:09 Urine Color Light-yellow (Yellow) 03/23/23 17:40 Urine Clarity Clear (Clear) 03/23/23 17:40 Urine pH 6.5 (5.0-7.0) 03/23/23 17:40 Ur Specific [place] 1.010 (1.005-1.030) 03/23/23 17:40 Glucose (UA)(Auto) Negative (Negative) 03/23/23 17:40 Urine Ketones Negative (Negative) 03/23/23 17:40 Urine Blood 1+ (Negative) H 03/23/23 17:40 Urine Nitrite Negative (Negative) 03/23/23 17:40 Urine Bilirubin Negative (Negative) 03/23/23 17:40 Urine Urobilinogen Normal (Normal) 03/23/23 17:40 Ur Leukocyte Esterase Negative Mak/uL (Negative) 03/23/23 17:40 Urine RBC 5-10 /HPF (None Seen) H 03/23/23 17:40 Urine WBC <5 /HPF (<5) 03/23/23 17:40 Ur Squamous Epith Cells None seen /HPF (None Seen) 03/23/23 17:40 Amorphous Crystals Trace /HPF (None Seen) 03/23/23 17:40 Urine Bacteria None seen /HPF (<20) 03/23/23 17:40 Urine Mucus Slight /HPF (None Seen) 03/23/23 17:40 Urine Culture Reflexed Not needed 03/23/23 17:40 Urine Total Protein Negative (Negative) 03/23/23 17:40 SARS-CoV-2 Ag (Rapid) Negative (Negative) 03/25/23 11:21 Weight: 122 lb Wound Present: No Closed Surgical Incision Present: Yes Negative Pressure Wound Therapy Present: No Physician Update: She is doing well with PT and OT. Low albumin and prealbumin on protein supp. On multiple pain medication modality. To be discharge home in AM with [facility]. SBA with 250' with RW. Summary: Patient's care plan and termite control representative goals have been reviewed and revised as necessary. Please see the Rehabilitation Signature page for all necessary signatures.
[2023-03-29] MEDS: METOPROLOL XL 50 MG TAB PO SCH (20:08)
[2023-03-29] MEDS: BRIMONIDINE TARTRATE OPTH SCH (20:08)
[2023-03-29] MEDS: TIMOLOL OPTH SCH (20:08)
[2023-03-30] MEDS: LEVOTHYROXINE SOD 0.025 MG TAB PO SCH (06:44)
[2023-03-30] MEDS: DOCUSATE NA 100 MG CAP PO SCH ×2 (08:00→08:15)
[2023-03-30] MEDS: DOCUSATE NA/SENNA CONC 1 TAB PO SCH ×2 (08:00→08:14)
[2023-03-30] MEDS: ENOXAPARIN 40 MG/0.4 ML SQ SCH (08:14)
[2023-03-30] MEDS: LOSARTAN POTASSIUM 50 MG TABLET PO SCH (08:14)
[2023-03-30] MEDS: TRAMADOL HCL 50 MG TAB PO PRN (08:15)
[2023-03-30] MEDS: ENSURE HIGH PROTEIN 237 ML CAN PO SCH (08:16)
[2023-03-30] MEDS: GABAPENTIN 100 MG CAP PO SCH (08:17)
[2023-03-30 08:33] VITALS: BP 147/64; TEMP 97.4
== END 2023-03-30 11:30 | disposition home or self-care (01) | DRG 561 ==
LOC: 5TH 12:00
PROVIDERS: ADMIT Psychiatry & Neurology Neurology with Special Qualifications in Child Neurology; ATTEND Psychiatry & Neurology Neurology with Special Qualifications in Child Neurology
DX: S72.142D Displaced intertrochanteric fracture of left femur, subsequent encounter for closed fracture with routine healing (principal); I10 Essential (primary) hypertension; E78.5 Hyperlipidemia, unspecified; E03.9 Hypothyroidism, unspecified; G47.00 Insomnia, unspecified; K59.00 Constipation, unspecified; R53.1 Weakness; D64.9 Anemia, unspecified; E88.09 Other disorders of plasma-protein metabolism, not elsewhere classified
CPT/HCPCS: 36415; 80048; 81001; 82040; 83735; 84134; 85025; 87086; 87088; 87811; 97110; 97116; 97163; 97165; 97530; 97542; J1650

== ENCOUNTER 2025-02-02 12:06 | Emergency (ER) | payer OTHER ==
--- OUTSIDE RECORDS SUMMARY | 2025-02-02 12:13 | XMS REPORT | Continuity of Care Document ---
Author Name Unknown Address [address] [facility] [address] [place] [address] [facility] Address [address] [facility] [address] [place] [address] Care Team Providers Care Supervisory Geographer Name Role Phone Paco Villalpando Attending Clinician Unavailable Gilda Hathaway Attending Clinician Unavailable Michelle Munguia APN Admitting Clinician Unavailable Payers Payer Name Policy Type Policy Number Effective Date Expirati on Date Source Problems Condition Name Condition Details Condition Category Status Onset Date Resolution Date Last Treatment Date Treating Clinician Comments Source [id number] Primary osteoarthr itis of left wrist Problem [facility] [id number] Primary osteoarthr itis of right wrist Problem [facility] [id number] Urinary incontinen ce, unspecifie d type Problem [facility] Constipati on Constipati on Problem [facility] [id number] S/P partial hysterecto my Problem [facility] [id number] Primary insomnia Problem [facility] [id number] Status post colon resection Problem [facility] [id number] Acquired hypothyroi dism Problem [facility] [id number] Osteoporos is, unspecifie d osteoporos is type, unspecifie d pathologic al fracture presence Problem [facility] [id number] Vitamin D deficiency Problem [facility] [id number] Glaucoma, unspecifie d glaucoma type, unspecifie d laterality Problem [facility] [id number] SAILAJA (generaliz ed anxiety disorder) Problem [facility] [id number] History of colon cancer Problem [facility] [id number] Mixed hyperlipid emia Problem [facility] [id number] Essential (primary) hypertensi on Problem [facility] [id number] Pain, joint, hip, left Problem [facility] [id number] Status post hip surgery Problem [facility] [id number] 00 Daytime sleepiness Problem [facility] [id number] Insomnia, unspecifie d type Problem [facility] Comprehens deana eye examinatio n (procedure ) Routine eye exam Problem [facility] Allergies, Adverse Reactions, Alerts Allergy Name Allergy Type Status Severity Reaction(s) Onset Date Inactive Date Treating Clinician Comments Source ciproflo xacin HCl DA Active U 09-26 00:00: 00 [facility] codeine DA Active U 09-26 00:00: 00 [facility] ciproflo xacin DA Active U 09-26 00:00: 00 [facility] ciproflo xacin HCl DA Active U HEADACHE, SWEATS, ANXIETY 09-26 00:00: 00 [facility] codeine DA Active U POUNDING HEADACHE 09-26 00:00: 00 [facility] ciproflo xacin DA Active U HEADACHE, SWEATS, ANXIETY 09-26 00:00: 00 [facility] code[facility] codeine Active Unknown [facility] Social History Social Habit Start Date Stop Date Quantity Comments Source History of Tobacco Use [facility] Sex Assigned At [facility] Smoking Status Start Date Stop Date Source Former Smoker 2024-12-16 00:00:00 2024-12-16 00:00:00 [facility] Medications Ordered Medication Name Filled Medication Name Start Date Stop Date Current Medication? Ordering Clinician Indication Dosage Frequency Signature (SIG) Comments Components Source Solifenacin Succinate 10 MG Solifenacin Succinate 10 MG 2023-05 0 00:00: 00 No 1{table t} QD Solifenaci n Succinate 10 MG Ibandronate Sodium 150 MG Ibandronate Sodium 150 MG 09-01 00:00: 00 No Ibandronat e Sodium 150 MG Brimonidine Tartrate 0.2 % Brimonidine Tartrate 0.2 % No 1{drop_ into_af fected_ eye} TID Brimonidin e Tartrate 0.2 % Timolol Maleate 0.5 % Timolol Maleate 0.5 % No 1{drop_ into_af fected_ eye} QD Timolol Maleate 0.5 % Euthyrox 25 MCG Euthyrox 25 MCG No QD Euthyrox 25 MCG Losartan Potassium 50 MG Losartan Potassium 50 MG No 1{table t} QD Losartan Potassium 50 MG Metoprolol Succinate ER 50 MG Metoprolol Succinate ER 50 MG No 1{table t} QD Metoprolol Succinate ER 50 MG Metamucil Metamucil No 1{pa cke t_mixed _with_8 _ounces _of_flu id} QD Metamucil Combigan 0.2-0.5 % Combigan 0.2-0.5 % No 1{drop_ into_af fected_ eye} BID Combigan 0.2-0.5 % Immunizations Ordered Immunization Name Filled Immunization Name Date Status Comments Source Fluad (IIV) - SDS - 0.5mL Fluad (IIV) - SDS - 0.5mL 2019-03-23 15:05:00 Completed [facility] FluAD FluAD 2019-03-23 15:05:00 Completed [facility] FluAD FluAD 2019-03-23 15:05:00 Completed [facility] FluAD FluAD 2019-03-23 15:05:00 Completed [facility] FluAD FluAD 2019-03-23 15:05:00 Completed [facility] Pneumovax (PPSV23) Pneumovax (PPSV23) 2010-09-30 15:07:00 Completed [facility] Pneumovax (PPSV23) Pneumovax (PPSV23) 2010-09-30 15:07:00 Completed [facility] Pneumovax (PPSV23) Pneumovax (PPSV23) 2010-09-30 15:07:00 Completed [facility] Pneumovax (PPSV23) Pneumovax (PPSV23) 2010-09-30 15:07:00 Completed [facility] Pneumovax (PPSV23) Pneumovax (PPSV23) 2010-09-30 15:07:00 Completed [facility] FluAD FluAD Unknown Completed [facility] Pneumovax (PPSV23) Pneumovax (PPSV23) Unknown Completed [facility] FluAD FluAD Unknown Completed [facility] Pneumovax (PPSV23) Pneumovax (PPSV23) Unknown Completed [facility] FluAD FluAD Unknown Completed [facility] Pneumovax (PPSV23) Pneumovax (PPSV23) Unknown Completed [facility] FluAD FluAD Unknown Completed [facility] Pneumovax (PPSV23) Pneumovax (PPSV23) Unknown Completed [facility] FluAD FluAD Unknown Completed [facility] Pneumovax (PPSV23) Pneumovax (PPSV23) Unknown Completed [facility] FluAD FluAD Unknown Completed [facility] Pneumovax (PPSV23) Pneumovax (PPSV23) Unknown Completed [facility] FluAD FluAD Unknown Completed [facility] Pneumovax (PPSV23) Pneumovax (PPSV23) Unknown Completed [facility] FluAD FluAD Unknown Completed [facility] Pneumovax (PPSV23) Pneumovax (PPSV23) Unknown Completed [facility] FluAD FluAD Unknown Completed [facility] Pneumovax (PPSV23) Pneumovax (PPSV23) Unknown Completed [facility] FluAD FluAD Unknown Completed [facility] Pneumovax (PPSV23) Pneumovax (PPSV23) Unknown Completed [facility] FluAD FluAD Unknown Completed [facility] Pneumovax (PPSV23) Pneumovax (PPSV23) Unknown Completed [facility] FluAD FluAD Unknown Completed [facility] Pneumovax (PPSV23) Pneumovax (PPSV23) Unknown Completed [facility] FluAD FluAD Unknown Completed [facility] Pneumovax (PPSV23) Pneumovax (PPSV23) Unknown Completed [facility] FluAD FluAD Unknown Completed [facility] Pneumovax (PPSV23) Pneumovax (PPSV23) Unknown Completed [facility] FluAD FluAD Unknown Completed [facility] Pneumovax (PPSV23) Pneumovax (PPSV23) Unknown Completed [facility] FluAD FluAD Unknown Completed [facility] Pneumovax (PPSV23) Pneumovax (PPSV23) Unknown Completed [facility] FluAD FluAD Unknown Completed [facility] Pneumovax (PPSV23) Pneumovax (PPSV23) Unknown Completed [facility] FluAD FluAD Unknown Completed [facility] Pneumovax (PPSV23) Pneumovax (PPSV23) Unknown Completed [facility] FluAD FluAD Unknown Completed [facility] Pneumovax (PPSV23) Pneumovax (PPSV23) Unknown Completed [facility] FluAD FluAD Unknown Completed [facility] Pneumovax (PPSV23) Pneumovax (PPSV23) Unknown Completed [facility] FluAD FluAD Unknown Completed [facility] Pneumovax (PPSV23) Pneumovax (PPSV23) Unknown Completed [facility] FluAD FluAD Unknown Completed [facility] Pneumovax (PPSV23) Pneumovax (PPSV23) Unknown Completed [facility] Vital Signs Vital Name Observation Time Observation Value Comments S ource height 2024-12-16 13:30:00 64 [in_i] Comm n [facility] weight 2024-12-16 13:30:00 101.8 [lb_av] Co [facility] temperature 2024-12-16 13:30:00 97.3 [degF] Com [facility] bmi 2024-12-16 13:30:00 17.47 kg/m2 Comm on [facility] oximetry 2024-12-16 13:30:00 97 % [facility] blood pressure systolic 2024-12-16 13:30:00 116 mm[Hg] [facility] blood pressure diastolic 2024-12-16 13:30:00 72 mm[Hg] Common [facility] height 2024-07-15 13:40:00 64 [in_i] Commo n [facility] weight 2024-07-15 13:40:00 107.4 [lb_av] Co [facility] temperature 2024-07-15 13:40:00 97.2 [degF] Com mon [facility] bmi 2024-07-15 13:40:00 18.43 kg/m2 Comm on [facility] oximetry 2024-07-15 13:40:00 98 % Commo n [facility] respiratory rate 2024-07-15 13:40:00 17 /min Common [facility] blood pressure systolic 2024-07-15 13:40:00 114 mm[Hg] Common [facility] blood pressure diastolic 2024-07-15 13:40:00 72 mm[Hg] [facility] height 2024-07-15 13:30:00 64 [in_i] Commo n [facility] weight 2024-07-15 13:30:00 107.4 [lb_av] Co [facility] temperature 2024-07-15 13:30:00 97.2 [degF] Com [facility] bmi 2024-07-15 13:30:00 18.43 kg/m2 Comm on [facility] oximetry 2024-07-15 13:30:00 98 % Commo n [facility] heart rate 2024-07-15 13:30:00 67 /min Commo n [facility] respiratory rate 2024-07-15 13:30:00 17 /min Common [facility] blood pressure systolic 2024-07-15 13:30:00 114 mm[Hg] [facility] blood pressure diastolic 2024-07-15 13:30:00 72 mm[Hg] [facility] height 2024-07-15 13:30:00 64 [in_i] Commo n [facility] weight 2024-07-15 13:30:00 107.4 [lb_av] Co [facility] temperature 2024-07-15 13:30:00 97.2 [degF] Com [facility] bmi 2024-07-15 13:30:00 18.43 kg/m2 Comm on [facility] oximetry 2024-07-15 13:30:00 98 % Commo n [facility] heart rate 2024-07-15 13:30:00 67 /min Commo n [facility] respiratory rate 2024-07-15 13:30:00 17 /min Common [facility] blood pressure systolic 2024-07-15 13:30:00 114 mm[Hg] [facility] blood pressure diastolic 2024-07-15 13:30:00 72 mm[Hg] Common [facility] height 2024-03-18 10:30:00 64 [in_i] Commo n [facility] weight 2024-03-18 10:30:00 111 [lb_av] Comm on [facility] temperature 2024-03-18 10:30:00 97.3 [degF] Com [facility] bmi 2024-03-18 10:30:00 19.05 kg/m2 Comm on [facility] oximetry 2024-03-18 10:30:00 94 % Commo n [facility] blood pressure systolic 2024-03-18 10:30:00 138 mm[Hg] Common [facility] blood pressure diastolic 2024-03-18 10:30:00 76 mm[Hg] [facility] height 2024-03-18 10:30:00 64 [in_i] Commo n [facility] weight 2024-03-18 10:30:00 111 [lb_av] Comm on [facility] temperature 2024-03-18 10:30:00 97.3 [degF] Com [facility] bmi 2024-03-18 10:30:00 19.05 kg/m2 Comm on [facility] oximetry 2024-03-18 10:30:00 94 % Commo n [facility] blood pressure systolic 2024-03-18 10:30:00 138 mm[Hg] [facility] blood pressure diastolic 2024-03-18 10:30:00 76 mm[Hg] [facility] height 2023-12-11 13:50:00 64 [in_i] Commo n [facility] weight 2023-12-11 13:50:00 113.8 [lb_av] Co mmon [facility] temperature 2023-12-11 13:50:00 96.6 [degF] Com mon [facility] bmi 2023-12-11 13:50:00 19.53 kg/m2 Comm on [facility] oximetry 2023-12-11 13:50:00 99 % Commo n [facility] blood pressure systolic 2023-12-11 13:50:00 138 mm[Hg] [facility] blood pressure diastolic 2023-12-11 13:50:00 78 mm[Hg] [facility] height 2023-08-07 13:10:00 64 [in_i] Commo n [facility] weight 2023-08-07 13:10:00 117.8 [lb_av] Co mmon [facility] temperature 2023-08-07 13:10:00 98.2 [degF] Com mon [facility] bmi 2023-08-07 13:10:00 20.22 kg/m2 Comm on [facility] oximetry 2023-08-07 13:10:00 98 % Commo n [facility] respiratory rate 2023-08-07 13:10:00 18 /min Common [facility] blood pressure systolic 2023-08-07 13:10:00 116 mm[Hg] [facility] blood pressure diastolic 2023-08-07 13:10:00 69 mm[Hg] [facility] height 2023-08-07 13:20:00 64 [in_i] Commo n [facility] weight 2023-08-07 13:20:00 117.8 [lb_av] Co mmon [facility] temperature 2023-08-07 13:20:00 98.2 [degF] Com mon [facility] bmi 2023-08-07 13:20:00 20.22 kg/m2 Comm on [facility] oximetry 2023-08-07 13:20:00 98 % Commo n [facility] respiratory rate 2023-08-07 13:20:00 18 /min Common [facility] blood pressure systolic 2023-08-07 13:20:00 116 mm[Hg] [facility] blood pressure diastolic 2023-08-07 13:20:00 69 mm[Hg] Common [facility] height 2023-05-16 10:30:00 64 [in_i] Commo n [facility] weight 2023-05-16 10:30:00 120.8 [lb_av] Co on [facility] temperature 2023-05-16 10:30:00 97.0 [degF] Com mon [facility] bmi 2023-05-16 10:30:00 20.73 kg/m2 Comm on [facility] oximetry 2023-05-16 10:30:00 98 % Commo n [facility] respiratory rate 2023-05-16 10:30:00 17 /min Common [facility] blood pressure systolic 2023-05-16 10:30:00 123 mm[Hg] [facility] blood pressure diastolic 2023-05-16 10:30:00 64 mm[Hg] Common [facility] height 2023-05-01 13:00:00 64 [in_i] Commo n [facility] weight 2023-05-01 13:00:00 129 [lb_av] Comm on [facility] temperature 2023-05-01 13:00:00 98.0 [degF] Com mon [facility] bmi 2023-05-01 13:00:00 22.14 kg/m2 Comm on [facility] blood pressure systolic 2023-05-01 13:00:00 136 mm[Hg] [facility] blood pressure diastolic 2023-05-01 13:00:00 86 mm[Hg] [facility] height 2023-04-03 14:00:00 64 [in_i] Commo n [facility] weight 2023-04-03 14:00:00 129 [lb_av] Comm on [facility] temperature 2023-04-03 14:00:00 98.1 [degF] Com [facility] bmi 2023-04-03 14:00:00 22.14 kg/m2 Comm on [facility] blood pressure systolic 2023-04-03 14:00:00 132 mm[Hg] [facility] blood pressure diastolic 2023-04-03 14:00:00 74 mm[Hg] [facility] height 2022-12-24 13:40:00 64 [in_i] Commo n [facility] weight 2022-12-24 13:40:00 127.0 [lb_av] Co mmon [facility] temperature 2022-12-24 13:40:00 97.7 [degF] Com mon [facility] bmi 2022-12-24 13:40:00 21.8 kg/m2 Commo n [facility] oximetry 2022-12-24 13:40:00 98 % Commo n [facility] respiratory rate 2022-12-24 13:40:00 18 /min Common [facility] blood pressure systolic 2022-12-24 13:40:00 136 mm[Hg] [facility] blood pressure diastolic 2022-12-24 13:40:00 71 mm[Hg] [facility] height 2022-07-31 15:30:00 64 [in_i] Commo n [facility] weight 2022-07-31 15:30:00 128.2 [lb_av] Co [facility] temperature 2022-07-31 15:30:00 96.6 [degF] Com [facility] bmi 2022-07-31 15:30:00 22 kg/m2 Commo n [facility] oximetry 2022-07-31 15:30:00 99 % Commo n [facility] respiratory rate 2022-07-31 15:30:00 18 /min [facility] blood pressure systolic 2022-07-31 15:30:00 130 mm[Hg] [facility] blood pressure diastolic 2022-07-31 15:30:00 74 mm[Hg] [facility] height 2022-07-31 15:30:00 64 [in_i] Commo n [facility] weight 2022-07-31 15:30:00 128.2 [lb_av] Co [facility] temperature 2022-07-31 15:30:00 96.6 [degF] Com [facility] bmi 2022-07-31 15:30:00 22 kg/m2 Commo n [facility] oximetry 2022-07-31 15:30:00 99 % Commo n [facility] respiratory rate 2022-07-31 15:30:00 18 /min Common [facility] blood pressure systolic 2022-07-31 15:30:00 130 mm[Hg] [facility] blood pressure diastolic 2022-07-31 15:30:00 74 mm[Hg] [facility] height 2022-04-24 13:10:00 64 [in_i] Commo n [facility] weight 2022-04-24 13:10:00 126.1 [lb_av] Co mmon [facility] temperature 2022-04-24 13:10:00 97.0 [degF] Com [facility] bmi 2022-04-24 13:10:00 21.64 kg/m2 Comm on [facility] oximetry 2022-04-24 13:10:00 98 % Commo n [facility] respiratory rate 2022-04-24 13:10:00 18 /min Common [facility] blood pressure systolic 2022-04-24 13:10:00 123 mm[Hg] [facility] blood pressure diastolic 2022-04-24 13:10:00 67 mm[Hg] Common [facility] height 2022-01-23 13:20:00 64 [in_i] Commo n [facility] weight 2022-01-23 13:20:00 125.0 [lb_av] Co on [facility] temperature 2022-01-23 13:20:00 97.2 [degF] Com [facility] bmi 2022-01-23 13:20:00 21.45 kg/m2 Comm on [facility] oximetry 2022-01-23 13:20:00 98 % Commo n [facility] respiratory rate 2022-01-23 13:20:00 18 /min Common [facility] blood pressure systolic 2022-01-23 13:20:00 137 mm[Hg] Common [facility] blood pressure diastolic 2022-01-23 13:20:00 63 mm[Hg] [facility] height 2022-01-02 13:15:00 64 [in_i] Commo n [facility] weight 2022-01-02 13:15:00 126 [lb_av] Comm on [facility] bmi 2022-01-02 13:15:00 21.63 kg/m2 Comm on [facility] blood pressure systolic 2022-01-02 13:15:00 119 mm[Hg] [facility] blood pressure diastolic 2022-01-02 13:15:00 71 mm[Hg] [facility] height 2021-12-19 15:00:00 64 [in_i] Commo n [facility] weight 2021-12-19 15:00:00 126 [lb_av] Comm on [facility] temperature 2021-12-19 15:00:00 97.5 [degF] Com mon [facility] bmi 2021-12-19 15:00:00 21.63 kg/m2 Comm on [facility] blood pressure systolic 2021-12-19 15:00:00 120 mm[Hg] Common [facility] blood pressure diastolic 2021-12-19 15:00:00 78 mm[Hg] [facility] height 2021-09-25 13:30:00 64 [in_i] Commo n [facility] weight 2021-09-25 13:30:00 127.3 [lb_av] Co mmon [facility] temperature 2021-09-25 13:30:00 98.2 [degF] Com mon [facility] bmi 2021-09-25 13:30:00 21.85 kg/m2 Comm on [facility] oximetry 2021-09-25 13:30:00 97 % Commo n [facility] respiratory rate 2021-09-25 13:30:00 18 /min Common [facility] blood pressure systolic 2021-09-25 13:30:00 138 mm[Hg] [facility] blood pressure diastolic 2021-09-25 13:30:00 72 mm[Hg] Common [facility] height 2021-06-27 15:40:00 64 [in_i] Commo n [facility] weight 2021-06-27 15:40:00 128.6 [lb_av] Co mmon [facility] temperature 2021-06-27 15:40:00 98.0 [degF] Com [facility] bmi 2021-06-27 15:40:00 22.07 kg/m2 Comm on [facility] oximetry 2021-06-27 15:40:00 99 % Commo n [facility] respiratory rate 2021-06-27 15:40:00 18 /min Common [facility] blood pressure systolic 2021-06-27 15:40:00 133 mm[Hg] [facility] blood pressure diastolic 2021-06-27 15:40:00 75 mm[Hg] Common [facility] height 2021-06-27 15:20:00 64 [in_i] Commo n [facility] weight 2021-06-27 15:20:00 128.6 [lb_av] Co [facility] temperature 2021-06-27 15:20:00 98.0 [degF] Com [facility] bmi 2021-06-27 15:20:00 22.07 kg/m2 Comm on [facility] oximetry 2021-06-27 15:20:00 99 % Commo n [facility] respiratory rate 2021-06-27 15:20:00 18 /min Common [facility] blood pressure systolic 2021-06-27 15:20:00 133 mm[Hg] Common [facility] blood pressure diastolic 2021-06-27 15:20:00 75 mm[Hg] Common [facility] height 2021-05-29 15:30:00 64 [in_i] Commo n [facility] weight 2021-05-29 15:30:00 130.1 [lb_av] [facility] 2021-05-29 15:30:00 97.6 [degF] Com mon [facility] bmi 2021-05-29 15:30:00 22.33 kg/m2 Comm on [facility] oximetry 2021-05-29 15:30:00 99 % Commo n [facility] respiratory rate 2021-05-29 15:30:00 18 /min [facility] blood pressure systolic 2021-05-29 15:30:00 138 mm[Hg] [facility] blood pressure diastolic 2021-05-29 15:30:00 72 mm[Hg] [facility] Encounters Start Date/Time End Date/Time Encounter Type Admission Type Attending [facility] Care Department Encounter ID Source 2024-07-15 13:24:00 Outpatient [facility] [id number] [facility] 2023-12-05 09:52:00 Outpatient [facility], [facility] [id number] [facility] 2023-08-30 11:39:00 Outpatient [facility], [facility] [id number] [facility] 2023-08-07 13:07:00 Outpatient [facility] [id number] [facility] 2023-08-06 14:50:00 Outpatient [facility] [id number] [facility] 2023-05-16 09:01:00 Outpatient Vill[facility], Pcao [facility] STLMLC [id number] [facility] 2023-05-15 14:10:00 Outpatient Vill[facility], [facility] ST[facility] [id number] [facility] 2023-04-03 13:50:01 Outpatient [facility] [id number] [facility] 2023-04-02 10:18:01 Outpatient Villal[facility], Paco [facility] STL[facility]C [id number] [facility] 2023-03-19 11:04:00 Outpatient Villal[facility], Paco [facility] STL[facility] [id number] [facility] 2022-12-24 13:27:00 Outpatient Villal[facility], Paco [facility] STL[facility]C [id number] [facility] 2022-04-20 11:15:02 Outpatient Villalpando, Paco [facility] STL[facility]C [id number] [facility] 2021-12-20 11:27:02 Outpatient Villalpando, Paco [facility] STL[facility]C [id number] [facility] 2021-12-19 16:05:02 Outpatient Villalpando, Paco [facility] STL[facility]C [id number] [facility] 2021-12-18 16:10:01 Outpatient Villal[facility]ando, Paco [facility] STL[facility]C [id number] [facility] 2021-06-28 08:45:04 Outpatient Villal[facility]ando, Paco [facility] STL[facility]C [id number] [facility] 2021-06-23 11:57:02 Outpatient Villal[facility]ando, Paco [facility] STL[facility]C [id number] [facility] 2021-06-14 14:33:17 Outpatient Villal[facility]ando, Paco [facility] STL[facility]C [id number] [facility] 2024-12-16 00:00:00 2024-12-16 00:00:00 OFFICE VISIT ESTAB PT LEVEL 4 STLMLC STLMLC [id number] [facility] 2024-12-16 00:00:00 2024-12-16 00:00:00 (TEL) STLMLC STLMLC [id number] [facility] 2024-10-13 00:00:00 2024-10-13 00:00:00 (TEL) STLMLC STLMLC [id number] [facility] 2024-10-07 00:00:00 2024-10-07 00:00:00 (TEL) STLMLC STLMLC [id number] [facility] 2024-07-15 00:00:00 2024-07-15 00:00:00 SUB ANNUAL [facility] WELLNESS VISIT STLMLC STLMLC [id number] [facility] 2024-07-15 00:00:00 2024-07-15 00:00:00 OFFICE VISIT ESTAB PT LEVEL 4 STLMLC STLMLC [id number] [facility] 2024-03-19 00:00:00 2024-03-19 00:00:00 (TEL) STLMLC STLMLC [id number] [facility] 2024-03-18 00:00:00 2024-03-18 00:00:00 OFFICE VISIT ESTAB PT LEVEL 4 STLMLC STLMLC [id number] [facility] 2024-02-05 00:00:00 2024-02-05 00:00:00 (TEL) STLMLC STLMLC [id number] [facility] 2023-12-11 00:00:00 2023-12-11 00:00:00 OFFICE VISIT ESTAB PT LEVEL 4 STLMLC STLMLC [id number] [facility] 2023-11-22 00:00:00 2023-11-22 00:00:00 (TEL) STLMLC STLMLC [id number] [facility] 2023-09-30 00:00:00 2023-09-30 00:00:00 (TEL) STLMLC STLMLC [id number] [facility] 2023-08-15 00:00:00 2023-08-15 00:00:00 (TEL) STLMLC STLMLC [id number] [facility] 2023-08-12 00:00:00 2023-08-12 00:00:00 (TEL) STLMLC STLMLC [id number] [facility] 2023-08-07 00:00:00 2023-08-07 00:00:00 OFFICE VISIT ESTAB PT LEVEL 4 STLMLC STLMLC [id number] [facility] 2023-08-07 00:00:00 2023-08-07 00:00:00 SUB ANNUAL [facility] WELLNESS VISIT STLMLC STLMLC [id number] [facility] 2023-07-08 00:00:00 2023-07-08 00:00:00 (TEL) STLMLC STLMLC [id number] [facility] 2023-06-25 00:00:00 2023-06-25 00:00:00 (TEL) STLMLC STLMLC [id number] [facility] 2023-06-21 00:00:00 2023-06-21 00:00:00 (TEL) STLMLC STLMLC [id number] [facility] 2023-05-16 00:00:00 2023-05-16 00:00:00 (TEL) STLMLC STLMLC [id number] [facility] 2023-05-16 00:00:00 2023-05-16 00:00:00 OFFICE VISIT ESTAB PT LEVEL 4 STLMLC STLMLC [id number] [facility] 2023-05-01 00:00:00 2023-05-01 00:00:00 (PO) Post Op STLMLC STLMLC [id number] [facility] 2023-04-03 00:00:00 2023-04-03 00:00:00 (PO) Post Op STLMLC STLMLC [id number] [facility] 2023-04-02 00:00:00 2023-04-02 00:00:00 (TEL) STLMLC STLMLC [id number] [facility] 2023-03-18 00:00:00 2023-03-18 00:00:00 (TEL) STLMLC STLMLC [id number] [facility] 2023-02-12 00:00:00 2023-02-12 00:00:00 (TEL) STLMLC STLMLC [id number] [facility] 2022-12-24 00:00:00 2022-12-24 00:00:00 OFFICE VISIT ESTAB PT LEVEL 4 STLMLC STLMLC [id number] [facility] 2022-11-21 00:00:00 2022-11-21 00:00:00 (TEL) STLMLC STLMLC [id number] [facility] 2022-08-10 00:00:00 2022-08-10 00:00:00 (TEL) STLMLC STLMLC [id number] [facility] 2022-07-31 00:00:00 2022-07-31 00:00:00 OFFICE VISIT ESTAB PT LEVEL 4 STLMLC STLMLC [id number] [facility] 2022-07-31 00:00:00 2022-07-31 00:00:00 SUB ANNUAL [facility] WELLNESS VISIT STLMLC STLMLC [id number] [facility] 2022-07-16 00:00:00 2022-07-16 00:00:00 (TEL) STLMLC STLMLC [id number] [facility] 2022-04-24 00:00:00 2022-04-24 00:00:00 OFFICE VISIT ESTAB PT LEVEL 4 STLMLC STLMLC [id number] [facility] 2022-01-23 00:00:00 2022-01-23 00:00:00 OFFICE VISIT ESTAB PT LEVEL 4 STLMLC STLMLC [id number] [facility] 2022-01-02 00:00:00 2022-01-02 00:00:00 OFFICE VISIT ESTAB PT LEVEL 4 STLMLC STLMLC [id number] [facility] 2021-12-20 00:00:00 2021-12-20 00:00:00 (TEL) STLMLC STLMLC [id number] [facility] 2021-12-19 00:00:00 2021-12-19 00:00:00 OFFICE VISIT NEW PT LEVEL 3 STLMLC STLMLC [id number] [facility] 2021-12-18 00:00:00 2021-12-18 00:00:00 (TEL) STLMLC STLMLC [id number] [facility] 2021-09-25 00:00:00 2021-09-25 00:00:00 OFFICE VISIT ESTAB PT LEVEL 4 STLMLC STLMLC [id number] [facility] 2021-08-25 00:00:00 2021-08-25 00:00:00 (TEL) STLMLC STLMLC [id number] [facility] 2021-06-28 00:00:00 2021-06-28 00:00:00 (TEL) STLMLC STLMLC [id number] [facility] 2021-06-28 00:00:00 2021-06-28 00:00:00 (TEL) STLMLC STLMLC [id number] [facility] 2021-06-27 00:00:00 2021-06-27 00:00:00 SUB ANNUAL [facility] WELLNESS VISIT STLMLC STLMLC [id number] [facility] 2021-06-27 00:00:00 2021-06-27 00:00:00 OFFICE VISIT ESTAB PT LEVEL 4 STLMLC STLMLC [id number] [facility] 2021-06-21 00:00:00 2021-06-21 00:00:00 (TEL) STLMLC STLMLC [id number] [facility] 2021-05-29 00:00:00 2021-05-29 00:00:00 OFFICE VISIT NEW PT LEVEL 4 STLMLC STLMLC [id number] [facility] 2019-07-31 13:00:00 2019-07-31 13:00:00 Outpatient Gilda Hathaway [facility] [id number] [facility] 2019-07-30 13:00:00 2019-07-30 13:00:00 Outpatient Gilda Hathaway [facility] [id number] [facility] Results Test Description Test Time Test Comments Results Result Co mments Source COMPREHENSIVE METABOLIC [id number] 00:00:00* Test Item Value Reference Range Interpretation Comme nts NUCLEATED RBCS (test code = 23525-4) 0.0 /100 WBC'S See_Comment [Automated message] The system which generated this result transmitted reference range: 0.0 /100 WBC'S. The reference range was not used to interpret this result as normal/abnormal. ABSOLUTE EOSINOPHILS (test code = 68265-3) 0.18 K/UL See_Comment [Automated message] The system which generated this result transmitted reference range: 0.00-0.50 K/UL. The reference range was not used to interpret this result as normal/abnormal. ABSOLUTE LYMPHOCYTES (test code = 55143-6) 1.89 K/UL See_Comment [Automated message] The system which generated this result transmitted reference range: 1.00-4.00 K/UL. The reference range was not used to interpret this result as normal/abnormal. ABSOLUTE MONOCYTES (test code = 32606-3) 0.52 K/UL See_Comment [Automated message] The system which generated this result transmitted reference range: 0.20-1.00 K/UL. The reference range was not used to interpret this result as normal/abnormal. ABSOLUTE NEUTROPHILS (test code = 40201-5) 4.45 K/UL See_Comment [Automated message] The system which generated this result transmitted reference range: 1.50-7.50 K/UL. The reference range was not used to interpret this result as normal/abnormal. BASOPHILS (test code = 48432-7) 0.8 % EOSINOPHILS (test code = 69569-2) 2.5 % HEMATOCRIT (test code = 68913-1) 40.2 % See_Comment [Automated messa ge] The system which generated this result transmitted reference range: 34.0-45.0 %. The reference range was not used to interpret this result as normal/abnormal. HEMOGLOBIN (test code = 718-7) 13.3 G/DL See_Comment [Automated messa ge] The system which generated this result transmitted reference range: 11.5-15.5 G/DL. The reference range was not used to interpret this result as normal/abnormal. LYMPHOCYTES (test code = 95227-3) 26.5 % MCH (test code = 29909-4) 29.6 PG See_Comment [Automated messa ge] The system which generated this result transmitted reference range: 25.0-33.0 PG. The reference range was not used to interpret this result as normal/abnormal. MCHC (test code = 99378-2) 33.1 G/DL See_Comment [Automated messa ge] The system which generated this result transmitted reference range: 31.0-36.0 G/DL. The reference range was not used to interpret this result as normal/abnormal. MCV (test code = 40390-3) 89.5 fL See_Comment [Automated messa ge] The system which generated this result transmitted reference range: 80.0-99.0 fL. The reference range was not used to interpret this result as normal/abnormal. MONOCYTES (test code = 49483-9) 7.3 % NEUTROPHILS (test code = 77956-9) 62.5 % PLATELET COUNT (test code = 20066-5) 442 K/UL See_Comment H [Automated messa ge] The system which generated this result transmitted reference range: 130-400 K/UL. The reference range was not used to interpret this result as normal/abnormal. RBC (test code = 99180-5) 4.49 M/UL See_Comment [Automated messa ge] The system which generated this result transmitted reference range: 3.80-5.40 M/UL. The reference range was not used to interpret this result as normal/abnormal. RDW (test code = 90895-9) 13.3 % See_Comment [Automated messa ge] The system which generated this result transmitted reference range: 11.5-15.0 %. The reference range was not used to interpret this result as normal/abnormal. WBC (test code = 05088-3) 7.1 K/UL See_Comment [Automated messa ge] The system which generated this result transmitted reference range: 3.5-11.0 K/UL. The reference range was not used to interpret this result as normal/abnormal. HEMOGLOBIN A1c (test code = 4548-4) 5.9 % See_Comment H [Automated messa ge] The system which generated this result transmitted reference range: 4.2-5.6 %. The reference range was not used to interpret this result as normal/abnormal. TSH REFLEX TO FREE T4 (test code = 27698-7) 3.840 UIU/ML See_Comment [Automated message] The system which generated this result transmitted reference range: 0.400-4.100 UIU/ML. The reference range was not used to interpret this result as normal/abnormal. VITAMIN D, 25 OH (test code = 1988-) 61 NG/ML SEE BELOW NG/ML CALC LDL CHOL (test code = 09743-8) 130 MG/DL See_Comment H [Automated [employer]] The system which generated this result transmitted reference range: <100 MG/DL. The reference range was not used to interpret this result as normal/abnormal. CHOLESTEROL (test code = 2093-3) 232 MG/DL See_Comment H [Automated [employer]] The system which generated this result transmitted reference range: <200 MG/DL. The reference range was not used to interpret this result as normal/abnormal. HDL CHOLESTEROL (test code = 2085-9) 82 MG/DL See_Comment [Automated [employer]] The system which generated this result transmitted reference range: >39 MG/DL. The reference range was not used to interpret this result as normal/abnormal. RISK RATIO LDL/HDL (test code = 56546-6) 1.59 RATIO See_Comment [Automated message] The system which generated this result transmitted reference range: <3.22 RATIO. The reference range was not used to interpret this result as normal/abnormal. TRIGLYCERIDES (test code = 2571-8) 94 MG/DL See_Comment [Automated [employer]] The system which generated this result transmitted reference range: <150 MG/DL. The reference range was not used to interpret this result as normal/abnormal. ALBUMIN (test code = 1751-7) 4.5 G/DL See_Comment [Automated [employer]] The system which generated this result transmitted reference range: 3.5-5.2 G/DL. The reference range was not used to interpret this result as normal/abnormal. ALKALINE PHOSPHATASE (test code = 6768-6) 97 U/L See_Comment [Automated message] The system which generated this result transmitted reference range: 40-142 U/L. The reference range was not used to interpret this result as normal/abnormal. BILIRUBIN, TOTAL (test code = 1975-2) 0.3 MG/DL See_Comment [Automated messa ge] The system which generated this result transmitted reference range: <=1.2 MG/DL. The reference range was not used to interpret this result as normal/abnormal. BUN (test code = 3094-0) 10 MG/DL See_Comment [Automated messa ge] The system which generated this result transmitted reference range: 8-23 MG/DL. The reference range was not used to interpret this result as normal/abnormal. CALCIUM (test code = 59384-4) 9.8 MG/DL See_Comment [Automated messa ge] The system which generated this result transmitted reference range: 8.5-10.5 MG/DL. The reference range was not used to interpret this result as normal/abnormal. CALC A/G RATIO (test code = 1759-0) 1.6 RATIO See_Comment [Automated messa ge] The system which generated this result transmitted reference range: 1.0-2.6 RATIO. The reference range was not used to interpret this result as normal/abnormal. CALC BUN/CREAT (test code = 3097-3) 12 RATIO See_Comment [Automated messa ge] The system which generated this result transmitted reference range: 6-28 RATIO. The reference range was not used to interpret this result as normal/abnormal. CALC GLOBULIN (test code = 76757-7) 2.8 G/DL See_Comment [Automated messa ge] The system which generated this result transmitted reference range: 1.9-3.7 G/DL. The reference range was not used to interpret this result as normal/abnormal. CARBON DIOXIDE (test code = 1963-8) 27 MEQ/L See_Comment [Automated messa ge] The system which generated this result transmitted reference range: 19-31 MEQ/L. The reference range was not used to interpret this result as normal/abnormal. CHLORIDE (test code = 2075-0) 103 MEQ/L See_Comment [Automated messa ge] The system which generated this result transmitted reference range: 95-107 MEQ/L. The reference range was not used to interpret this result as normal/abnormal. CREATININE (test code = 2160-0) 0.81 MG/DL See_Comment [Automated messa ge] The system which generated this result transmitted reference range: 0.60-1.30 MG/DL. The reference range was not used to interpret this result as normal/abnormal. eGFR (2020 CKD-EPI) (test code = 25022-5) 71 ML/MIN/1.73 See_Comment [Automated message] The system which generated this result transmitted reference range: >60 ML/MIN/1.73. The reference range was not used to interpret this result as normal/abnormal. GLUCOSE (test code = 1558-6) 108 MG/DL See_Comment H [Automated messa ge] The system which generated this result transmitted reference range: 70-99 MG/DL. The reference range was not used to interpret this result as normal/abnormal. POTASSIUM (test code = 2823-3) 4.7 MEQ/L See_Comment [Automated [employer]] The system which generated this result transmitted reference range: 3.5-5.4 MEQ/L. The reference range was not used to interpret this result as normal/abnormal. PROTEIN, TOTAL (test code = 2885-2) 7.3 G/DL See_Comment [Automated [employer]] The system which generated this result transmitted reference range: 6.1-8.3 G/DL. The reference range was not used to interpret this result as normal/abnormal. AST (test code = 1920-8) 28 U/L See_Comment [Automated [employer]] The system which generated this result transmitted reference range: 9-40 U/L. The reference range was not used to interpret this result as normal/abnormal. ALT (test code = 1742-6) 19 U/L See_Comment [Automated [employer]] The system which generated this result transmitted reference range: 5-40 U/L. The reference range was not used to interpret this result as normal/abnormal. SODIUM (test code = 2951-2) 141 MEQ/L See_Comment [Automated [employer]] The system which generated this result transmitted reference range: 133-146 MEQ/L. The reference range was not used to interpret this result as normal/abnormal. COMPREHENSIVE METABOLIC [id number] 00:00:00* Test Item Value Reference Range Interpretation Comme nts NUCLEATED RBCS (test code = 41450-2) 0.0 /100 WBC'S See_Comment [Automated message] The system which generated this result transmitted reference range: 0.0 /100 WBC'S. The reference range was not used to interpret this result as normal/abnormal. ABSOLUTE EOSINOPHILS (test code = 81229-8) 0.16 K/UL See_Comment [Automated message] The system which generated this result transmitted reference range: 0.00-0.50 K/UL. The reference range was not used to interpret this result as normal/abnormal. ABSOLUTE LYMPHOCYTES (test code = 19134-6) 1.74 K/UL See_Comment [Automated message] The system which generated this result transmitted reference range: 1.00-4.00 K/UL. The reference range was not used to interpret this result as normal/abnormal. ABSOLUTE MONOCYTES (test code = 33013-0) 0.55 K/UL See_Comment [Automated message] The system which generated this result transmitted reference range: 0.20-1.00 K/UL. The reference range was not used to interpret this result as normal/abnormal. ABSOLUTE NEUTROPHILS (test code = 39509-3) 3.95 K/UL See_Comment [Automated message] The system which generated this result transmitted reference range: 1.50-7.50 K/UL. The reference range was not used to interpret this result as normal/abnormal. BASOPHILS (test code = 37558-1) 0.6 % EOSINOPHILS (test code = 18794-9) 2.5 % HEMATOCRIT (test code = 64386-2) 37.8 % See_Comment [Automated messa ge] The system which generated this result transmitted reference range: 34.0-45.0 %. The reference range was not used to interpret this result as normal/abnormal. HEMOGLOBIN (test code = 718-7) 12.7 G/DL See_Comment [Automated messa ge] The system which generated this result transmitted reference range: 11.5-15.5 G/DL. The reference range was not used to interpret this result as normal/abnormal. LYMPHOCYTES (test code = 83889-2) 27.0 % MCH (test code = 74117-2) 31.0 PG See_Comment [Automated messa ge] The system which generated this result transmitted reference range: 25.0-33.0 PG. The reference range was not used to interpret this result as normal/abnormal. MCHC (test code = 59316-8) 33.6 G/DL See_Comment [Automated messa ge] The system which generated this result transmitted reference range: 31.0-36.0 G/DL. The reference range was not used to interpret this result as normal/abnormal. MCV (test code = 22907-6) 92.2 fL See_Comment [Automated messa ge] The system which generated this result transmitted reference range: 80.0-99.0 fL. The reference range was not used to interpret this result as normal/abnormal. MONOCYTES (test code = 46268-6) 8.5 % NEUTROPHILS (test code = 52240-9) 61.2 % PLATELET COUNT (test code = 62769-5) 348 K/UL See_Comment [Automated messa ge] The system which generated this result transmitted reference range: 130-400 K/UL. The reference range was not used to interpret this result as normal/abnormal. RBC (test code = 07032-7) 4.10 M/UL See_Comment [Automated messa ge] The system which generated this result transmitted reference range: 3.80-5.40 M/UL. The reference range was not used to interpret this result as normal/abnormal. RDW (test code = 93674-3) 13.2 % See_Comment [Automated messa ge] The system which generated this result transmitted reference range: 11.5-15.0 %. The reference range was not used to interpret this result as normal/abnormal. WBC (test code = 78349-8) 6.5 K/UL See_Comment [Automated messa ge] The system which generated this result transmitted reference range: 3.5-11.0 K/UL. The reference range was not used to interpret this result as normal/abnormal. HEMOGLOBIN A1c (test code = 4548-4) 5.9 % See_Comment H [Automated messa ge] The system which generated this result transmitted reference range: 4.2-5.6 %. The reference range was not used to interpret this result as normal/abnormal. TSH REFLEX TO FREE T4 (test code = 11140-4) 3.540 UIU/ML See_Comment [Automated message] The system which generated this result transmitted reference range: 0.400-4.100 UIU/ML. The reference range was not used to interpret this result as normal/abnormal. VITAMIN D, 25 OH (test code = 1988-07) 42 NG/ML SEE BELOW NG/ML CALC LDL CHOL (test code = 16804-2) 114 MG/DL See_Comment H [Automated messa ge] The system which generated this result transmitted reference range: <100 MG/DL. The reference range was not used to interpret this result as normal/abnormal. CHOLESTEROL (test code = 2092-3) 216 MG/DL See_Comment H [Automated messa ge] The system which generated this result transmitted reference range: <200 MG/DL. The reference range was not used to interpret this result as normal/abnormal. HDL CHOLESTEROL (test code = 2084-9) 82 MG/DL See_Comment [Automated messa ge] The system which generated this result transmitted reference range: >39 MG/DL. The reference range was not used to interpret this result as normal/abnormal. RISK RATIO LDL/HDL (test code = 23510-2) 1.39 RATIO See_Comment [Automated message] The system which generated this result transmitted reference range: <3.22 RATIO. The reference range was not used to interpret this result as normal/abnormal. TRIGLYCERIDES (test code = 2571-8) 98 MG/DL See_Comment [Automated messa ge] The system which generated this result transmitted reference range: <150 MG/DL. The reference range was not used to interpret this result as normal/abnormal. ALBUMIN (test code = 1751-7) 4.2 G/DL See_Comment [Automated [employer]] The system which generated this result transmitted reference range: 3.5-5.2 G/DL. The reference range was not used to interpret this result as normal/abnormal. ALKALINE PHOSPHATASE (test code = 6768-6) 83 U/L See_Comment [Automated message] The system which generated this result transmitted reference range: 40-142 U/L. The reference range was not used to interpret this result as normal/abnormal. BILIRUBIN, TOTAL (test code = 1975-2) 0.4 MG/DL See_Comment [Automated [employer]] The system which generated this result transmitted reference range: <=1.2 MG/DL. The reference range was not used to interpret this result as normal/abnormal. BUN (test code = 3094-0) 11 MG/DL See_Comment [Automated [employer]] The system which generated this result transmitted reference range: 8-23 MG/DL. The reference range was not used to interpret this result as normal/abnormal. CALCIUM (test code = 75257-5) 9.6 MG/DL See_Comment [Automated messa ge] The system which generated this result transmitted reference range: 8.5-10.5 MG/DL. The reference range was not used to interpret this result as normal/abnormal. CALC A/G RATIO (test code = 1759-0) 1.5 RATIO See_Comment [Automated messa ge] The system which generated this result transmitted reference range: 1.0-2.6 RATIO. The reference range was not used to interpret this result as normal/abnormal. CALC BUN/CREAT (test code = 3097-3) 14 RATIO See_Comment [Automated messa ge] The system which generated this result transmitted reference range: 6-28 RATIO. The reference range was not used to interpret this result as normal/abnormal. CALC GLOBULIN (test code = 27618-0) 2.8 G/DL See_Comment [Automated messa ge] The system which generated this result transmitted reference range: 1.9-3.7 G/DL. The reference range was not used to interpret this result as normal/abnormal. CARBON DIOXIDE (test code = 1963-8) 26 MEQ/L See_Comment [Automated messa ge] The system which generated this result transmitted reference range: 19-31 MEQ/L. The reference range was not used to interpret this result as normal/abnormal. CHLORIDE (test code = 2075-0) 106 MEQ/L See_Comment [Automated messa ge] The system which generated this result transmitted reference range: 95-107 MEQ/L. The reference range was not used to interpret this result as normal/abnormal. CREATININE (test code = 2160-0) 0.81 MG/DL See_Comment [Automated messa ge] The system which generated this result transmitted reference range: 0.60-1.30 MG/DL. The reference range was not used to interpret this result as normal/abnormal. eGFR (2020 CKD-EPI) (test code = 60018-9) 72 ML/MIN/1.73 See_Comment [Automated message] The system which generated this result transmitted reference range: >60 ML/MIN/1.73. The reference range was not used to interpret this result as normal/abnormal. GLUCOSE (test code = 1558-6) 97 MG/DL See_Comment [Automated messa ge] The system which generated this result transmitted reference range: 70-99 MG/DL. The reference range was not used to interpret this result as normal/abnormal. POTASSIUM (test code = 2823-3) 4.5 MEQ/L See_Comment [Automated messa ge] The system which generated this result transmitted reference range: 3.5-5.4 MEQ/L. The reference range was not used to interpret this result as normal/abnormal. PROTEIN, TOTAL (test code = 2885-2) 7.0 G/DL See_Comment [Automated messa ge] The system which generated this result transmitted reference range: 6.1-8.3 G/DL. The reference range was not used to interpret this result as normal/abnormal. AST (test code = 1920-8) 26 U/L See_Comment [Automated messa ge] The system which generated this result transmitted reference range: 9-40 U/L. The reference range was not used to interpret this result as normal/abnormal. ALT (test code = 1742-6) 16 U/L See_Comment [Automated messa ge] The system which generated this result transmitted reference range: 5-40 U/L. The reference range was not used to interpret this result as normal/abnormal. SODIUM (test code = 2951-2) 143 MEQ/L See_Comment [Automated messa ge] The system which generated this result transmitted reference range: 133-146 MEQ/L. The reference range was not used to interpret this result as normal/abnormal. CBC W/AUTO [id number] 00:00:00* Test Item Value Reference Range Interpretation Comme nts NUCLEATED RBCS (test code = 47580-9) 0.0 /100 WBC'S See_Comment [Automated messa ge] The system which generated this result transmitted reference range: 0.0 /100 WBC'S. The reference range was not used to interpret this result as normal/abnormal. ABSOLUTE EOSINOPHILS (test code = 14338-7) 0.14 K/UL See_Comment [Automated messa ge] The system which generated this result transmitted reference range: 0.00-0.50 K/UL. The reference range was not used to interpret this result as normal/abnormal. ABSOLUTE LYMPHOCYTES (test code = 33462-4) 1.78 K/UL See_Comment [Automated messa ge] The system which generated this result transmitted reference range: 1.00-4.00 K/UL. The reference range was not used to interpret this result as normal/abnormal. ABSOLUTE MONOCYTES (test code = 48966-5) 0.47 K/UL See_Comment [Automated messa ge] The system which generated this result transmitted reference range: 0.20-1.00 K/UL. The reference range was not used to interpret this result as normal/abnormal. ABSOLUTE NEUTROPHILS (test code = 13361-2) 3.10 K/UL See_Comment [Automated messa ge] The system which generated this result transmitted reference range: 1.50-7.50 K/UL. The reference range was not used to interpret this result as normal/abnormal. BASOPHILS (test code = 42690-4) 0.5 % EOSINOPHILS (test code = 54856-7) 2.5 % HEMATOCRIT (test code = 20382-8) 36.8 % See_Comment [Automated messa ge] The system which generated this result transmitted reference range: 34.0-45.0 %. The reference range was not used to interpret this result as normal/abnormal. HEMOGLOBIN (test code = 718-7) 12.4 G/DL See_Comment [Automated messa ge] The system which generated this result transmitted reference range: 11.5-15.5 G/DL. The reference range was not used to interpret this result as normal/abnormal. LYMPHOCYTES (test code = 65472-7) 32.2 % MCH (test code = 52989-7) 30.4 PG See_Comment [Automated messa ge] The system which generated this result transmitted reference range: 25.0-33.0 PG. The reference range was not used to interpret this result as normal/abnormal. MCHC (test code = 18577-4) 33.7 G/DL See_Comment [Automated messa ge] The system which generated this result transmitted reference range: 31.0-36.0 G/DL. The reference range was not used to interpret this result as normal/abnormal. MCV (test code = 00271-4) 90.2 fL See_Comment [Automated messa ge] The system which generated this result transmitted reference range: 80.0-99.0 fL. The reference range was not used to interpret this result as normal/abnormal. MONOCYTES (test code = 50719-1) 8.5 % NEUTROPHILS (test code = 88867-7) 56.1 % PLATELET COUNT (test code = 02682-7) 310 K/UL See_Comment [Automated messa ge] The system which generated this result transmitted reference range: 130-400 K/UL. The reference range was not used to interpret this result as normal/abnormal. RBC (test code = 96668-2) 4.08 M/UL See_Comment [Automated messa ge] The system which generated this result transmitted reference range: 3.80-5.40 M/UL. The reference range was not used to interpret this result as normal/abnormal. RDW (test code = 02980-3) 12.9 % See_Comment [Automated messa ge] The system which generated this result transmitted reference range: 11.5-15.0 %. The reference range was not used to interpret this result as normal/abnormal. WBC (test code = 98992-8) 5.5 K/UL See_Comment [Automated messa ge] The system which generated this result transmitted reference range: 3.5-11.0 K/UL. The reference range was not used to interpret this result as normal/abnormal. CBC W/AUTO [id number] 00:00:00* Test Item Value Reference Range Interpretation Comme nts NUCLEATED RBCS (test code = 66862-5) 0.0 /100 WBC'S See_Comment [Automated messa ge] The system which generated this result transmitted reference range: 0.0 /100 WBC'S. The reference range was not used to interpret this result as normal/abnormal. ABSOLUTE EOSINOPHILS (test code = 31165-5) 0.14 K/UL See_Comment [Automated messa ge] The system which generated this result transmitted reference range: 0.00-0.50 K/UL. The reference range was not used to interpret this result as normal/abnormal. ABSOLUTE LYMPHOCYTES (test code = 30560-7) 1.71 K/UL See_Comment [Automated messa ge] The system which generated this result transmitted reference range: 1.00-4.00 K/UL. The reference range was not used to interpret this result as normal/abnormal. ABSOLUTE MONOCYTES (test code = 31518-5) 0.49 K/UL See_Comment [Automated messa ge] The system which generated this result transmitted reference range: 0.20-1.00 K/UL. The reference range was not used to interpret this result as normal/abnormal. ABSOLUTE NEUTROPHILS (test code = 25179-0) 3.11 K/UL See_Comment [Automated messa ge] The system which generated this result transmitted reference range: 1.50-7.50 K/UL. The reference range was not used to interpret this result as normal/abnormal. BASOPHILS (test code = 72165-9) 0.5 % EOSINOPHILS (test code = 75373-1) 2.5 % HEMATOCRIT (test code = 66089-4) 40.0 % See_Comment [Automated messa ge] The system which generated this result transmitted reference range: 34.0-45.0 %. The reference range was not used to interpret this result as normal/abnormal. HEMOGLOBIN (test code = 718-7) 13.6 G/DL See_Comment [Automated messa ge] The system which generated this result transmitted reference range: 11.5-15.5 G/DL. The reference range was not used to interpret this result as normal/abnormal. LYMPHOCYTES (test code = 54078-1) 31.1 % MCH (test code = 63728-0) 31.3 PG See_Comment [Automated messa ge] The system which generated this result transmitted reference range: 25.0-33.0 PG. The reference range was not used to interpret this result as normal/abnormal. MCHC (test code = 59758-4) 34.0 G/DL See_Comment [Automated messa ge] The system which generated this result transmitted reference range: 31.0-36.0 G/DL. The reference range was not used to interpret this result as normal/abnormal. MCV (test code = 55865-2) 92.2 fL See_Comment [Automated messa ge] The system which generated this result transmitted reference range: 80.0-99.0 fL. The reference range was not used to interpret this result as normal/abnormal. MONOCYTES (test code = 39935-2) 8.9 % NEUTROPHILS (test code = 43105-8) 56.6 % PLATELET COUNT (test code = 30770-4) 353 K/UL See_Comment [Automated messa ge] The system which generated this result transmitted reference range: 130-400 K/UL. The reference range was not used to interpret this result as normal/abnormal. RBC (test code = 57896-3) 4.34 M/UL See_Comment [Automated messa ge] The system which generated this result transmitted reference range: 3.80-5.40 M/UL. The reference range was not used to interpret this result as normal/abnormal. RDW (test code = 81831-2) 13.0 % See_Comment [Automated messa ge] The system which generated this result transmitted reference range: 11.5-15.0 %. The reference range was not used to interpret this result as normal/abnormal. WBC (test code = 10675-7) 5.5 K/UL See_Comment [Automated messa ge] The system which generated this result transmitted reference range: 3.5-11.0 K/UL. The reference range was not used to interpret this result as normal/abnormal. - US HEAD AND [id number] 14:16:00FAX: Michelle Xie [phone] [place]: [facility] St: REG FAX: Gilda Hathaway [phone] - Name: MARYBELJAROD PIPO [facility] : 1940 Age/S: 79/F [address] [facility] [address] Unit #: [id number] [place]: [place] [address] Phys: Gilda Hathaway MD Acct: [id number] Dis Date: Status: REG CLI PHONE #: [phone] Exam Date: 07/31/2019 1302 FAX #: [phone] Reason: THYROID NODULE EXAMS: CPT CODE: [id number] US HEAD AND NECK 92309 EXAM: Thyroid ultrasound Dictation location: R16 INDICATION: Thyroid nodule COMPARISON: Thyroid ultrasound on 07/25/2018 DISCUSSION: The right thyroid lobe measures 4 x 0.9 x 0.9 cm and the left thyroid lobe measures 3.1 x 1.2 x 0.9 cm. The isthmus measures 0.3 cm. Nodules: A 0.4 cm [...] Munguia; Gilda Hathaway Technologist: Lorena Avery RDMS Trncard Date/Time/By: 07/31/2019 (1411) : By: [email or web address] Orig Print D/T: S:07/31/2019 (5267) PAGE 1 Signed Report- US HEAD AND [id number] 16:53:00FAX: Michelle Bailey [phone] [place]: [facility] St: REG FAX: Gilda Hathaway [phone] --- Name: TAY WHEELER [facility] : 1940 Age/S: 78/F [address] [facility] [address] Unit #: [id number] Loc: [place] [address] Phys: Gilda Hathaway MD Acct: [id number] Dis Date: Status: REG CLI PHONE #: [phone] Exam Date: 07/25/2018 2579 FAX #: [phone] Reason: THYROID NODULE EXAMS: CPT CODE: [id number] US HEAD AND NECK 11315 - US HEAD AND NECK CLINICAL HISTORY:THYROID NODULE COMPARISON: September 08, 2017 TECHNIQUE: Routine [...] lower pole 0.4 x 0.2 x 0.3 cm).Left lobe: The left thyroid measures 3.3 x [...] multiple bilateral cysts. There is a subcentimeter h ypoechoic nodule within the left isthmus. Surveillance imaging is recommended. at 1653 Reported and signed by: Yue Bojorquez MD CC: Michelle Chaudhary NP; Gilda Perdomo Technologist: Lorena Avery RDMS Trnscrd Date/Time/By: 07/25/2018 (1913) : By: [email or web address] Orig Print D/T: S: 07/25/2018 (5951) PAGE 1 Signed Report
--- NOTE | 2025-02-02 13:33 | RAD REPORT ---
EXAMINATION: Forearm Right VIEWS: Two views CLINICAL INDICATION: Female, 84 years old. PAIN COMPARISON: No prior exams IMPRESSION: No acute fracture. No acute soft tissue abnormality. Radiocarpal joint space narrowing.
--- NOTE | 2025-02-02 13:34 | RAD REPORT ---
EXAMINATION: Forearm Left VIEWS: Two views CLINICAL INDICATION: Female, 84 years old. PAIN COMPARISON: No prior exams IMPRESSION: Distal radial impaction fracture with intra-articular extension and mild dorsal tilt. Ulnar styloid f racture also present. No dislocation.
--- NOTE | 2025-02-02 13:46 | EDPHYS ---
Physician Documentation [facility] Name: Solange Wheeler Age: 84 yrs Sex: Female : 1940 Arrival Date: 02/02/2025 Time: 12:06 Bed 19 Private MD: ED Physician Magno Sahu HPI: 02/02 13:41 This 84 yrs old Female presents to ER via Wheelchair with complaints of Fall kb Injury - HEAD,ARMS. 13:41 Patient is a 84-year-old female who fell 5 days ago. Denies LOC. States she hit her kb right side of the face and bilateral forearms on the ground. Denies any facial pain. States she still having swelling to right elbow so she came to get it x-rayed. States she has a history of osteoporosis so she is concerned about a fracture.. Historical: - Allergies: 12:48 Codeine; hb - PMHx: 12:48 chronic back pain; colon cancer; Heel Fracture; Hypertensive disorder; Hypothyroidism; hb - PSHx: 12:48 partial hysterectomy; Cholecystectomy; Operative procedure on knee; hb - Immunization history:: Adult Immunizations up to date. - Infectious Disease History:: Denies. - Social history:: Smoking status: unknown. ROS: 13:40 Constitutional: As per HPI kb Exam: 13:40 Constitutional: This is a well developed, well nourished patient who is awake, alert, kb and in no acute distress. ENT: Moist Mucous membranes Cardiovascular: Regular rate Respiratory: Respirations even and unlabored. No increased work of breathing. Talking in full sentences Neuro: Awake and alert, GCS 15, oriented to person, place, time, and situation. 13:40 Head/face: Noted is no obvious of injury or deformity except ecchymosis, that is moderate, of the right cheek and right jaw, 13:40 Musculoskeletal/extremity: Extremities: grossly normal except: noted in the right upper arm and right forearm: ecchymosis, noted in the left forearm: deformity, ecchymosis, ROM: intact in all extremities, Circulation is intact in all extremities. Sensation intact. Vital Signs: 12:33 BP 152 / 75; Pulse 73; Pulse Ox 97% on R/A; ap3 MDM: 12:14 Medical Screening Exam initiated kb 13:20 Differential diagnosis: contusion, fracture, sprain, strain. Data reviewed: vital kb signs, nurses notes. Independent interpretation of the following test(s) in the Emergency Department X-Ray: My interpretation is Displaced fracture distal radius on left forearm x-ray. Historians other than the Patient: Daughter/Son: son. 13:40 Counseling: I had a detailed discussion with the patient and/or guardian regarding the kb historical points, exam findings, and any diagnostic results supporting the discharge/admit diagnosis, radiology results, the need for outpatient follow up, a orthopedic surgeon, to return to the emergency department if symptoms worsen or persist or if there are any questions or concerns that arise at home. 02/02 12:21 Order name: Forearm Left XRAY; Complete Time: 13:35 kb 02/02 12:21 Order name: Forearm Right XRAY; Complete Time: 13:35 kb 02/02 13:35 Order name: Sugar Tong Forearm Splint: left arm; Complete Time: 14:20 kb Administered Medications: No medications were administered Disposition: 15:46 Co-signature as Attending Physician, Magno Sahu MD I reviewed the patient's care rn provided by the Advanced Practice Provider and agree with the diagnosis and treatment plan. Disposition Summary: 02/02/25 13:45 Discharge Ordered Notes: Location: Home kb Condition: Stable kb Diagnosis - Displaced fracture of distal radius, left kb - Contusion of right elbow kb - Left ulnar fracture kb - Fall on same level, unspecified kb Followup: kb - With: Emergency Department - When: As needed - Reason: Worsening of condition Followup: kb - With: Private Physician - When: 2 - 3 days - Reason: Recheck today's complaints, Continuance of care, Re-evaluation by your physician Discharge Instructions: - Discharge Summary Sheet kb - Radial Fracture kb - Ulnar Fracture kb Forms: - Medication Reconciliation Form kb - Antibiotic Education kb - Prescription Opioid Use kb - Patient Portal Instructions kb - Leadership Thank You Letter kb Signatures: Dispatcher [employer] Pallavi Toledo, WEASAND TRIMMER-C WEASAND TRIMMER-Magno Elias MD MD rn Baxter, Heather, RN RN hb Prokisch, Amanda, RN RN ap3 Corrections: (The following items were deleted from the chart) 13:41 13:40 Musculoskeletal/extremity: Extremities: grossly normal except: noted in the right kb upper arm and right forearm: ecchymosis, noted in the left forearm: ecchymosis, kb 13:42 13:40 Musculoskeletal/extremity: Extremities: grossly normal except: noted in the right kb upper arm and right forearm: ecchymosis, noted in the left forearm: ecchymosis, ROM: intact in all extremities, Circulation is intact in all extremities. Sensation intact. kb
--- NOTE | 2025-02-02 13:46 | ER ---
Nurse's Notes [facility] Name: Solange Wheeler Age: 84 yrs Sex: Female : 1940 Arrival Date: 02/02/2025 Time: 12:06 Bed 19 Private MD: Diagnosis: Displaced fracture of distal radius, left;Contusion of right elbow;Left ulnar fracture;Fall on same level, unspecified Presentation: 02/02 12:30 Chief complaint: Right elbow and left wrist pain after fall 3 days ago. hb 12:30 Care prior to arrival:. hb 12:30 Acuity: BETH 4 hb 12:30 Method Of Arrival: Wheelchair hb 12:47 Coronavirus screen: At this time, the client does not indicate any symptoms associated hb with coronavirus-19. Ebola Screen: No symptoms or risks identified at this time. Initial Sepsis Screen: Does the patient meet any 2 criteria? No. Patient's initial sepsis screen is negative. Does the patient have a suspected source of infection? No. Patient's initial sepsis screen is negative. Risk Assessment: Do you want to hurt yourself or someone else? Patient reports no desire to harm self or others. Onset of symptoms was January 30, 2025. Historical: - Allergies: 12:48 Codeine; hb - PMHx: 12:48 chronic back pain; colon cancer; Heel Fracture; Hypertensive disorder; Hypothyroidism; hb - PSHx: 12:48 partial hysterectomy; Cholecystectomy; Operative procedure on knee; hb - Immunization history:: Adult Immunizations up to date. - Infectious Disease History:: Denies. - Social history:: Smoking status: unknown. Screenin:20 [facility] ED Fall Risk Assessment (Adult) History of falling in the last 3 months, ap3 including since admission Yes- fall prone (multiple falls) (3 pts) Confusion or Disorientation No (0 pts) Intoxicated or Sedated No (0 pts) Impaired Gait Yes (1 pt) Mobility Assist Device Used Yes (1 pt) Altered Elimination No (0 pt) Score/Fall Risk Level 3 or more points = High Risk Oriented to surroundings, Maintained a safe environment, Educated pt \T\ family on fall prevention, incl call for assistance when getting out of bed, Assessed \T\ reinforced patient's understanding of fall precautions, Provided non-skid footwear, Hourly rounding (assess needs \T\ fall precautionary measures) done. Abuse screen: Denies threats or abuse. Nutritional screening: No deficits noted. Tuberculosis screening: No symptoms or risk factors identified. Assessment: 14:20 General: Appears in no apparent distress. Behavior is calm, cooperative, appropriate ap3 for age. Pain: Complains of pain in left arm. Neuro: Level of Consciousness is awake, alert, obeys commands, Oriented to person, place, time, situation. Cardiovascular: Patient's skin is warm and dry. Respiratory: Airway is patent Respiratory effort is even, unlabored, Respiratory pattern is regular, symmetrical. Vital Signs: 12:33 BP 152 / 75; Pulse 73; Pulse Ox 97% on R/A; ap3 ED Course: 12:13 Patient arrived in ED. cj3 12:13 Pallavi Morales FNP-C [facility]. kb 12:13 Magno Sahu MD is Attending Physician. kb 12:31 Prachi Panda, RN is Primary Nurse. ap3 12:47 Triage completed. hb 13:24 Forearm Left XRAY In Process Unspecified. EDMS 13:24 Forearm Right XRAY In Process Unspecified. EDMS 14:21 Arm band placed on right wrist. ap3 14:21 Patient has correct armband on for positive identification. Provided Education on: ap3 discharge instructions. 14:21 No provider procedures requiring assistance completed. Patient did not have IV access ap3 during this emergency room visit. Orthoglass splint: Sugar tong splint applied on left arm. Administered Medications: No medications were administered Medication: 14:22 VIS not applicable for this client. ap3 Outcome: 13:45 Discharge ordered by . kb 14:21 Discharged to home via wheelchair, with family, ap3 14:21 Condition: good 14:21 Discharge instructions given to patient, family, Instructed on discharge instructions, follow up and referral plans. Demonstrated understanding of instructions, follow-up care, 14:22 Patient left the ED. ap3 Signatures: Dispatcher [employer] EDMS Pallavi Morales FNP-C FNP-Ckb Baxter, Heather, RN RN hb Prokisch, Amanda, RN RN ap3 Hilaria Espinoza cj3
[2025-02-02 14:31] VITALS: BP 152/75; O2SAT 97
== END 2025-02-02 14:22 | disposition home or self-care (01) ==
LOC: ER 12:06
PROC: 2W3DX1Z Immobilization of Left Lower Arm using Splint (ICD-10-PCS; principal; 2025-02-02)
DX: S52.502A Unspecified fracture of the lower end of left radius, initial encounter for closed fracture (principal); S52.615A Nondisplaced fracture of left ulna styloid process, initial encounter for closed fracture; S50.02XA Contusion of left elbow, initial encounter; W18.30XA Fall on same level, unspecified, initial encounter; I10 Essential (primary) hypertension; E03.9 Hypothyroidism, unspecified
CPT/HCPCS: 99283